=== PATIENT | male | born 1950 | race Caucasian/White ===

== ENCOUNTER 2018-01-21 14:38 | Inpatient (IN) | payer MEDICARE, BC ==
[2018-01-21] MEDS ORDERED: DIPH,PERTUS(ACELL)TETVAC-LF 0.5 ML VIAL IM ONE (15:20)
--- NOTE | 2018-01-21 15:44 | ED ---
General Adult HPI - General Stated complaint: Fall Time Seen by Provider: 01/21/18 15:08 Source: patient, EMS, RN notes reviewed, old records reviewed Mode of arrival: EMS Limitations: physical limitation - History of Present Illness Initial comments: 67-year-old male presenting status post fall. Patient states he fell down approximately 2 steps onto his knees. He was unable to ambulate after the fall. Patient was found by his son after approximately 2 hours according to EMS. He was covered in urine and feces. Patient does admit to drinking several beers. Denies any vomiting. Denies diarrhea. Denies any significant pain complaints. He is stating he is eager to be discharged at the time of initial evaluation. Patient does appear intoxicated on exam. His only pain complaint is his knees. Denies head injury. Denies LOC. Denies neck pain. Denies chest pain or shortness of breath. Denies abdominal pain. - Related Data Home Medications Medication Instructions Recorded Confirmed No Known Home Medications [No 01/21/18 01/21/18 Known Home Medications] Allergies Allergy/AdvReac Type Severity Reaction Status Date / Time No Known Allergies Allergy Verified 01/21/18 20:00 Review of Systems ROS Statement: Those systems with pertinent positive or pertinent negative responses have been documented in the HPI. ROS Other: All systems not noted in ROS Statement are negative. Past Medical History Additional Past Medical History / Comment(s): Diverticulitits, hx of CA Additional Past Surgical History / Comment(s): L. Arm amputation Smoking Status: Unknown if ever smoked Past Alcohol Use History: Daily Past Drug Use History: None Reported General Exam Limitations: physical limitation General appearance: alert, in no apparent distress, appears intoxicated Head exam: Present: atraumatic, normocephalic Eye exam: Present: normal appearance, PERRL, EOMI Neck exam: Present: normal inspection, tenderness. Absent: meningismus Respiratory exam: Present: normal lung sounds bilaterally. Absent: respiratory distress Cardiovascular Exam: Present: regular rate, normal rhythm GI/Abdominal exam: Present: soft. Absent: distended, tenderness Extremities exam: Present: other (Left arm amputation, bilateral knee abrasion and very stages of healing.) Neurological exam: Present: alert, oriented X3, CN II-XII intact. Absent: motor sensory deficit Skin exam: Present: warm, dry. Absent: cyanosis, diaphoretic Course Vital Signs 01/21/18 01/21/18 15:14 19:32 Temperature 99.1 F Pulse Rate 106 H 91 Respiratory 18 16 Rate Blood Pressure 167/96 151/88 O2 Sat by Pulse 95 96 Oximetry EKG Findings - EKG Comments: EKG Findings:: EKG, sinus tachycardia moderate voltage criteria for LVH T-wave inversion in V5 and V6 with mild ST segment depression. No ST segment elevation. Rate of 103, PA interval 140, QRS duration 108, QTC 474 Medical Decision Making - Medical Decision Making 67-year-old male presents with multiple falls. On initial evaluation, patient is covered in his own urine and feces. Chief complaint is only bilateral knee pain. X-rays are obtained, this is negative for fracture dislocation. Patient' s tetanus is updated. Chest x-ray negative for focal pneumonia. X-ray negative for Q bony abnormality. Patient is clinically intoxicated on initial evaluation of alcohol 179. White blood cell count normal, hemoglobin stable. Patient does appear somewhat dehydrated. He receives some IV hydration. I did have a long discussion with the patient's son, he is very concerned about the multiple falls and is concerned that his father is unable to take care of himself. Patient will be placed in observation for physical therapy to see regarding multiple falls and gait instability. CT was scale is ordered. Patient's son will attempt to arrange a place for his father to go in the next 24 hours. Patient also benefit from social work consult. - Lab Data Result diagrams: 01/21/18 15:46 01/21/18 15:46 Lab Results 01/21/18 01/21/18 01/21/18 Range/Units 15:46 15:46 15:46 WBC 5.5 (3.8-10.6) k/uL RBC 5.27 (4.30-5.90) m/uL Hgb 16.3 (13.0-17.5) gm/dL Hct 47.8 (39.0-53.0) % MCV 90.8 (80.0-100.0) fL MCH 30.9 (25.0-35.0) pg MCHC 34.1 (31.0-37.0) g/dL RDW 13.6 (11.5-15.5) % Plt Count 59 L (150-450) k/uL Neutrophils % 75 % Lymphocytes % 14 % Monocytes % 7 % Eosinophils % 2 % Basophils % 1 % Neutrophils # 4.1 (1.3-7.7) k/uL Lymphocytes # 0.8 L (1.0-4.8) k/uL Monocytes # 0.4 (0-1.0) k/uL Eosinophils # 0.1 (0-0.7) k/uL Basophils # 0.0 (0-0.2) k/uL PT 10.7 (9.0-12.0) sec INR 1.1 (<1.2) APTT 20.9 L (22.0-30.0) sec Sodium 138 (137-145) mmol/L Potassium 3.9 (3.5-5.1) mmol/L Chloride 102 (98-107) mmol/L Carbon Dioxide 19 L (22-30) mmol/L Anion Gap 17 mmol/L BUN 16 (9-20) mg/dL Creatinine 0.71 (0.66-1.25) mg/dL Est GFR (CKD-EPI)AfAm >90 (>60 ml/min/1.73 sqM) Est GFR (CKD-EPI)NonAf >90 (>60 ml/min/1.73 sqM) Glucose 85 (74-99) mg/dL Calcium 8.5 (8.4-10.2) mg/dL Total Bilirubin 1.0 (0.2-1.3) mg/dL AST 40 (17-59) U/L ALT 51 (21-72) U/L Alkaline Phosphatase 51 (38-126) U/L Troponin I (0.000-0.034) ng/mL Total Protein 6.7 (6.3-8.2) g/dL Albumin 4.2 (3.5-5.0) g/dL Urine Color Urine Appearance (Clear) Urine pH (5.0-8.0) Ur Specific [place] (1.001-1.035) Urine Protein (Negative) Urine Glucose (UA) (Negative) Urine Ketones (Negative) Urine Blood (Negative) Urine Nitrite (Negative) Urine Bilirubin (Negative) Urine Urobilinogen (<2.0) mg/dL Ur Leukocyte Esterase (Negative) Serum Alcohol 179 mg/dL 01/21/18 01/21/18 Range/Units 15:46 16:36 WBC (3.8-10.6) k/uL RBC (4.30-5.90) m/uL Hgb (13.0-17.5) gm/dL Hct (39.0-53.0) % MCV (80.0-100.0) fL MCH (25.0-35.0) pg MCHC (31.0-37.0) g/dL RDW (11.5-15.5) % Plt Count (150-450) k/uL Neutrophils % % Lymphocytes % % Monocytes % % Eosinophils % % Basophils % % Neutrophils # (1.3-7.7) k/uL Lymphocytes # (1.0-4.8) k/uL Monocytes # (0-1.0) k/uL Eosinophils # (0-0.7) k/uL Basophils # (0-0.2) k/uL PT (9.0-12.0) sec INR (<1.2) APTT (22.0-30.0) sec Sodium (137-145) mmol/L Potassium (3.5-5.1) mmol/L Chloride (98-107) mmol/L Carbon Dioxide (22-30) mmol/L Anion Gap mmol/L BUN (9-20) mg/dL Creatinine (0.66-1.25) mg/dL Est GFR (CKD-EPI)AfAm (>60 ml/min/1.73 sqM) Est GFR (CKD-EPI)NonAf (>60 ml/min/1.73 sqM) Glucose (74-99) mg/dL Calcium (8.4-10.2) mg/dL Total Bilirubin (0.2-1.3) mg/dL AST (17-59) U/L ALT (21-72) U/L Alkaline Phosphatase (38-126) U/L Troponin I 0.020 (0.000-0.034) ng/mL Total Protein (6.3-8.2) g/dL Albumin (3.5-5.0) g/dL Urine Color Colorless Urine Appearance Clear (Clear) Urine pH 5.0 (5.0-8.0) Ur Specific [place] 1.002 (1.001-1.035) Urine Protein Negative (Negative) Urine Glucose (UA) Negative (Negative) Urine Ketones Negative (Negative) Urine Blood Negative (Negative) Urine Nitrite Negative (Negative) Urine Bilirubin Negative (Negative) Urine Urobilinogen <2.0 (<2.0) mg/dL Ur Leukocyte Esterase Negative (Negative) Serum Alcohol mg/dL Disposition Clinical Impression: Fall, Multiple falls, Alcohol abuse Disposition: ADMITTED IP TO THIS HOSP Condition: Stable Is patient prescribed a controlled substance at d/c from ED?: No Referrals: None,Stated [Primary Care Provider] - 1-2 days Time of Disposition: 20:02 Decision to Admit Reason: Admit from EC Decision Date: 01/21/18 Decision Time: 20:02
[2018-01-21 16:00] LABS: Basophils % (A) 1 %; Eosinophils # (A) 0.1 k/uL (0-0.7); Eosinophils % (A) 2 %; HCT 47.8 % (39.0-53.0); HGB 16.3 gm/dL (13.0-17.5); Lymphocytes # (A) 0.8 k/uL (1.0-4.8); Lymphocytes % (A) 14 %; MCH 30.9 pg (25.0-35.0); MCHC 34.1 g/dL (31.0-37.0); MCV 90.8 fL (80.0-100.0); Mean Platelet Volume 10.6; Monocytes # (A) 0.4 k/uL (0-1.0); Monocytes % (A) 7 %; Neutrophils # (A) 4.1 k/uL (1.3-7.7); Neutrophils % (A) 75 %; RBC 5.27 m/uL (4.30-5.90); RDW 13.6 % (11.5-15.5); WBC 5.5 k/uL (3.8-10.6)
[2018-01-21 16:09] LABS: ALT 51 U/L (21-72); AST 40 U/L (17-59); Albumin 4.2 g/dL (3.5-5.0); Alkaline Phosphatase 51 U/L (38-126); Anion Gap 17 mmol/L; Blood Urea Nitrogen 16 mg/dL (9-20); Calcium 8.5 mg/dL (8.4-10.2); Carbon Dioxide 19 mmol/L (22-30); Chloride 102 mmol/L (98-107); Glucose 85 mg/dL (74-99); Potassium 3.9 mmol/L (3.5-5.1); Sodium 138 mmol/L (137-145); Total Protein 6.7 g/dL (6.3-8.2)
[2018-01-21 16:15] LABS: Platelet Count 59 k/uL (150-450)
[2018-01-21 16:16] LABS: Alcohol 179 mg/dL; INR 1.1 (<1.2); Partial Thromboplastin Time 20.9 sec (22.0-30.0); Prothrombin Time 10.7 sec (9.0-12.0)
[2018-01-21] MEDS ORDERED: SODIUM CHLORIDE 0.9% 500 ML IV ONE (16:24)
[2018-01-21 16:40] LABS: Appearance,Urine Clear (Clear); Bilirubin,Urine Negative (Negative); Blood,Urine Negative (Negative); Color,Urine Colorless; Glucose,Urine (UA) Negative (Negative); Ketones,Urine Negative (Negative); Leukocyte Esterase,Urine Negative (Negative); Nitrite,Urine Negative (Negative); Protein,Urine Negative (Negative); Specific Gravity,Urine 1.002 (1.001-1.035); Urobilinogen,Urine <2.0 mg/dL (<2.0)
--- NOTE | 2018-01-21 18:16 | XR ---
PROCEDURE: XR knee complete bilateral, total 6 views DATE AND TIME: 01/21/2018 5:41 PM REFERRING PHYSICIAN: Davian Chicas CLINICAL INDICATION: PHH, Pain TECHNIQUE: Department protocol. COMPARISON: None FINDINGS: RIGHT KNEE: There is no fracture or malalignment. The soft tissues are unremarkable. Mild medial comp artment joint space narrowing noted. No other degenerative joint changes. LEFT KNEE: There is no fracture or malalignment. The soft tissues are unremarkable. Mild medial marko rtment joint space narrowing noted. No other degenerative joint changes. IMPRESSION: Only minimal degenerative joint changes bilaterally.
--- NOTE | 2018-01-21 19:16 | XR ---
PROCEDURE: XR pelvis - 2 AP views DATE AND TIME: 01/21/2018 5:41 PM REFERRING PHYSICIAN: Davian Chicas CLINICAL INDICATION: PHH, Trauma TECHNIQUE: 2 AP views. COMPARISON: None FINDINGS: There is no fracture or malalignment. The soft tissues are unremarkable. IMPRESSION: NO ACUTE PROCESS.
--- NOTE | 2018-01-21 19:21 | XR ---
EXAMINATION: XR chest 2V portable DATE AND TIME: 01/21/2018 5:41 PM ORDERING PROVIDER: Davian Chicas MD CLINICAL INDICATION: Pain following trauma TECHNIQUE: 2 AP views make up the examination COMPARISON: None. DESCRIPTION: The film is quite rotated. However, the lungs appear to be predominantly clear with the exception of retrocardiac lung opacifica tion with silhouetting of the left hemidiaphragm consistent with partial left lower lobe airlessness. This can correlate with a clinical diagnosis of left lower lobe atelectasis. As stated, the lungs ar e otherwise clear and well-expanded bilaterally. The pleural spaces appear to be negative. No evidence of pneumothorax. The cardiac silhouette is not enlarged. The skeletal structures are intact without focal findings. The soft tissues are unremarkable. IMPRESSION: Suspect left lower lobe atelectasis.
[2018-01-21] MEDS ORDERED: LORazepam 2 MG/ML INJ IV PRN ×2 (19:33)
[2018-01-21] MEDS ORDERED: THIAMINE 100 MG/ML 2 ML VIAL IM STA (19:33)
[2018-01-21] MEDS ORDERED: NALOXONE 0.4 MG/ML 1 ML VIAL IV PRN (19:58)
[2018-01-21] MEDS ORDERED: ACETAMINOPHEN TAB 325 MG TAB PO PRN (19:58)
[2018-01-22 00:28] VITALS: BMI 29.7
[2018-01-22] MEDS: LORazepam 2 MG/ML INJ IV PRN ×3 (07:55→22:36)
--- NOTE | 2018-01-22 11:16 | P.HPIM ---
History of Present Illness H&P Date: 01/22/18 Chief Complaint: Post fall Patient is a 67-year-old male with a known history of of diverticulitis. Status post explore laparotomy and postoperative wound infection status post skin flap several years ago, alcohol abuse on daily basis and history of left arm amputation and 70s due to answers status post chemoradiation infection came to ER with complaints of falls. A patient fell down approximately 2 steps in onto his knees.He was unable to ambulate after the fall. Patient was found by his son after approximately 2 hours according to EMS. He was covered in urine and feces. Patient does admit to drinking several beers. Denies any vomiting. Denies diarrhea. Denies any significant pain complaints. He is stating he is eager to be discharged at the time of initial evaluation. Patient does appear intoxicated on exam. His only pain complaint is his knees. Denies head injury. Denies LOC. Denies neck pain. Denies chest pain or shortness of breath. Denies abdominal pain. Any recent illnesses or sick contacts. His alcohol level was 179 on admission. Living insulin within normal limits. Review of Systems Constitutional: Patient denies any fever or chills . No generalized weakness or weight loss. Abdomen: Patient denied nausea vomiting and diarrhea and abdominal pain. Cardiovascular: Patient denies any chest pain or short of breath no palpitations. Respiratory: patient denied any cough is from production. No shortness of breath Neurologic: Patient denied any numbness or tingling headache. Musculoskeletal: Patient denies any complaints of joint swelling or deformity. Skin: Negative Psychiatric: Negative Endocrine: No heat or cold intolerance. No recent weight gain. Genitourinary: No dysuria or hematuria. All other 14 point ROS negative except the above Past Medical History Additional Past Medical History / Comment(s): Diverticulitits, hx of CA, falls, ETOH History of Any Multi-Drug Resistant Organisms: None Reported Additional Past Surgical History / Comment(s): L. Arm amputation (70's) Past Anesthesia/Blood Transfusion Reactions: No Reported Reaction Past Psychological History: No Psychological Hx Reported Smoking Status: Unknown if ever smoked Past Alcohol Use History: Daily Additional Past Alcohol Use History / Comment(s): has been a drinker since he was 14 years old and it has progressively gotten worse Past Drug Use History: None Reported Medications and Allergies Home Medications Medication Instructions Recorded Confirmed Type No Known Home Medications [No 01/21/18 01/21/18 History Known Home Medications] Allergies Allergy/AdvReac Type Severity Reaction Status Date / Time No Known Allergies Allergy Verified 01/21/18 20:00 Physical Exam Vitals: Vital Signs Temp Pulse Pulse Resp BP BP Pulse Ox 01/22/18 08:00 101 H 01/22/18 07:45 99.9 F H 101 H 20 161/91 95 01/22/18 00:00 92 18 01/21/18 22:34 98.4 F 92 18 162/91 92 L 01/21/18 21:59 98.4 F 18 162/91 01/21/18 21:18 97.6 F 01/21/18 19:32 91 16 151/88 96 01/21/18 15:14 99.1 F 106 H 18 167/96 95 Intake and Output 01/21/18 01/22/18 01/22/18 22:59 06:59 14:59 Other: Voiding Method Toilet Toilet Urinal Urinal # Voids 1 1 Weight 105.233 kg PHYSICAL EXAMINATION: Patient is lying in the bed comfortably, no acute distress, awake alert and oriented.. HEENT: Normocephalic. Neck is supple. Pupils reactive. Nostrils clear. Oral cavity is moist. Ears reveal no drainage. Neck reveals no JVD, carotid bruits, or thyromegaly. CHEST EXAMINATION: Trachea is central. Symmetrical expansion. Diminished bibasilar air entry Lung hou clear to auscultation and percussion. CARDIAC: Normal S1, S2 with no gallops. No murmurs ABDOMEN: Soft. Bowel sounds normal. No organomegaly. No abdominal bruits. Extremities: reveal no edema. Does have lacerations from fall on bilateral knees and legs. No clubbing or cyanosis Neurologically awake, alert, oriented x3 with well-coordinated movements. No focal deficits noted Skin: No rash or skin lesions except as aboveabove.. Psychiatric: Cooperative. Nonsuicidal Musculoskeletal: Patient does have left upper extremity amputation up to shoulder No joint swelling or deformity. Normal range of motion. Results CBC & Chem 7: 01/21/18 15:46 01/21/18 15:46 Labs: Abnormal Lab Results - Last 24 Hours (Table) 01/21/18 01/21/18 01/21/18 Range/Units 15:46 15:46 15:46 Plt Count 59 L (150-450) k/uL Lymphocytes # 0.8 L (1.0-4.8) k/uL APTT 20.9 L (22.0-30.0) sec Carbon Dioxide 19 L (22-30) mmol/L Thrombosis Risk Factor Assmnt - DVT/VTE Prophylaxis DVT/VTE Prophylaxis: Pharmacologic Prophylaxis ordered - Choose All That Apply Each Factor Represents 1 point: Obesity (BMI >25), Swollen legs (current) Each Risk Factor Represents 2 Points: Age 61-74 years Thrombosis Risk Factor Assessment Total Risk Factor Score: 4 Thrombosis Risk Factor Assessment Level: Moderate Risk Assessment and Plan Assessment: Status post mechanical fall and lacerated wounds on bilateral knees and legs Acute alcohol intoxication Alcohol abuse on daily basis Previous history of diverticular rupture and colectomy with abdominal wound issues and skin flap several years ago 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 Currently not on any medications at home DVT prophylaxis Plan: Patient will be continued on gentle hydration. Patient will be started on Norvasc 5 mg daily. Continue to monitor for alcohol withdrawal symptoms. Thiamine and multivitamins and recommended to follow up as an outpatient. PTOT consult and wound care. Home situation evaluation and further recommendations based on the clinical course. Discussed with the family in detail at bedside and all questions were answered. Time with Patient: Greater than 30
[2018-01-22] MEDS: THIAMINE 100 MG TAB PO SCH ×2 (11:48→16:45)
[2018-01-22] MEDS: amLODIPine 5 MG TAB PO SCH (11:48)
--- NOTE | 2018-01-22 12:42 | CT ---
EXAMINATION TYPE: CT abdomen pelvis wo con DATE OF EXAM: 01/22/2018 COMPARISON: NONE HISTORY: Abnormal gait, frequent falls, alcoholism CT DLP: 1139 mGycm Automated exposure control for dose reduction was used. TECHNIQUE: Helical acquisition of images was performed from the lung bases through the pelvis. FINDINGS: LUNG BASES: Heart is markedly enlarged there subsegmental changes at both lung bases. LIVER/GB: Liver is low in attenuation correlate for hepatic steatosis. Previous gallbladder surgery n oted. PANCREAS: No significant abnormality is seen. SPLEEN: No significant abnormality is seen. ADRENALS: No significant abnormality is seen. KIDNEYS: No significant abnormality is seen. FREE AIR: No free air is visualized URINARY BLADDER: No significant abnormality is seen. ADENOPATHY: None visualized. OSSEOUS STRUCTURES: Hypertrophic and degenerative change of the spine noted. There are a few scatter ed sclerotic lesions measure less than a centimeter involving which are too small to characterize. No compression deformities. BOWEL: Bowel gas pattern is nonspecific. A few prominent air-filled loops are seen along the anterio r abdominal wall which appeared to be slightly distended. Atrophic change of the musculature is noted . Small anterior abdominal wall hernia not excluded. Fat attenuation within the third portion of the duodenum can be associated with a small bowel lipoma measuring 7 mm. OTHER: Aorta of normal caliber. IMPRESSION: 1. HEPATIC STEATOSIS. CORRELATE FOR HEPATOCELLULAR DISEASE. 2. CARDIOMEGALY 3. NONSPECIFIC GAS PATTERN WITH A FEW PROMINENT SMALL BOWEL LOOPS COULD BEEN THE BASIS OF A LOCALIZED ILEUS. THERE IS SOME ABDOMINAL DISTENTION ANTERIORLY IS FAVORED OVER SMALL ANTERIOR ABDOMINAL WALL H ERNIA. CORRELATE CLINICALLY. 4. SOFT TISSUE DENSITY SEEN ADJACENT TO THE RIGHT MARGIN OF A THORACIC VERTEBRAL SEGMENT MEASURING AP PROXIMATELY 2.3 CM. THIS IS SEEN ON IMAGE 1 INCOMPLETELY IMAGED. SHORT-TERM FOLLOW-UP CT CHEST TO BE OBTAINED. 5. SUSPECT A SMALL BOWEL LIPOMA WITHIN THE DUODENUM MEASURING 7 MM.
[2018-01-22] MEDS: HEPARIN SODIUM,PORCINE 5,000 UNIT/ML 1 ML VIAL SQ SCH ×2 (16:45→23:08)
[2018-01-22 23:13] VITALS: RESP 16
[2018-01-23] MEDS: amLODIPine 5 MG TAB PO SCH (08:16)
[2018-01-23] MEDS: HEPARIN SODIUM,PORCINE 5,000 UNIT/ML 1 ML VIAL SQ SCH (08:16)
[2018-01-23 08:34] VITALS: BP 170/103; PULSE 90; TEMP 97.4
--- NOTE | 2018-01-23 10:34 | P.CON ---
Consult Note - . Consult date: 01/23/18 Assessment/Plan:: This consultation was performed per the request of regarding elongated neglected thick deformed nails of both feet. Line This patient is a 67-year-old male with a known history of diverticulitis, status post exploratory laparotomy and postoperative wound infection status post skin flap several years ago. He states that he uses alcohol on a daily basis he has a history of a left arm amputation. The patient came to the ER with a complaint of a fall he apparently fell down 2 steps onto his knees he was unable to ambulate after the fall. The patient was found by his son after approximately 2 hours she does admitting to drinking several beers prior to the fall. Denies vomiting or diarrhea denies any significant pain complaints. He complaint were his knees. He denied head injury consciousness neck pain pain shortness of breath and abdominal pain or graft asked medical history nephric in for diverticulitis history of cancer falls [place] use Past medical history: Significant for diverticulitis history of cancer, falls, alcohol use left arm has been amputated Podiatric physical examination revealed very neglected elongated thick deformed dystrophic mycotic Jian involved nails involving the digits one through 5 bilaterally it appears as if the patient's not trimmed his nails in 2 years or so. The patient's skin with regard to color moisture temperature and texture was essentially within normal limits. Patient had palpable pedal pulses rated at +2 over 4 with regard to the dorsalis pedis and the posterior tibial arteries. Capillary refill is less than 3 seconds to all digits. Babinski and clonus signs were negative Range of motion ankle subtalar midtarsal metatarsal phalangeal joints are free and unrestricted Assessment and plan: 1. Status post mechanical fall and lacerated wounds on bilateral knees and legs 2. Acute alcohol intoxication 3. Alcohol abuse on a daily basis 4. Previous history of diverticular rupture and colectomy, wound issues and skin flap several years ago 5. Left upper extremity amputation/at the shoulder level . Thrombocytopenia secondary to alcohol abuse 7. Mild metastatic acidosis ion gap 8. Hypertension 9. DVT prophylaxis 10. Onychomycosis involving the digits one through 5 of both feet This data reduce patient's nails 1 through 5 bilaterally burring was performed and a septic was applied Thank you for considering me in the care your patients [place] DPM
[2018-01-23] MEDS ORDERED: LISINOPRIL 10 MG TAB PO SCH (11:15)
[2018-01-23] MEDS: THIAMINE 100 MG TAB PO SCH (11:39)
[2018-01-24] MEDS ORDERED: amLODIPine 10 MG TAB PO SCH (09:00)
== END 2018-01-23 16:10 | disposition home or self-care (01) | DRG 897 ==
LOC: EC 14:38 → 5MS5E 19:58 → OBSVTOIN 01-22 15:41 → 5MS5E 01-22 15:41
PROVIDERS: ADMIT Internal Medicine; ATTEND Internal Medicine
DX: F10.129 Alcohol abuse with intoxication, unspecified (principal); E87.2 Acidosis; B35.1 Tinea unguium; D69.59 Other secondary thrombocytopenia; E86.0 Dehydration; I10 Essential (primary) hypertension; R29.6 Repeated falls; K57.90 Diverticulosis of intestine, part unspecified, without perforation or abscess without bleeding; S81.012A Laceration without foreign body, left knee, initial encounter; S81.011A Laceration without foreign body, right knee, initial encounter; S81.812A Laceration without foreign body, left lower leg, initial encounter; S81.811A Laceration without foreign body, right lower leg, initial encounter; Z90.49 Acquired absence of other specified parts of digestive tract; Z89.232 Acquired absence of left shoulder; Z85.9 Personal history of malignant neoplasm, unspecified; W10.9XXA Fall (on) (from) unspecified stairs and steps, initial encounter; Y92.9 Unspecified place or not applicable; Y90.6 Blood alcohol level of 120-199 mg/100 ml
CPT/HCPCS: 36415; 71045; 72170; 74176; 80053; 80320; 81003; 84443; 84484; 85025; 85610; 85730; 90471; 90715; 93005; 96360; 96361; 96372; 99285

== ENCOUNTER 2019-07-13 09:28 | Inpatient (IN) | payer MEDICARE, BC ==
--- NOTE | 2019-07-13 10:44 | ED ---
General Adult HPI - General Chief complaint: Recheck/Abnormal Lab/Rx Stated complaint: LOW HEMOGLOBIN Time Seen by Provider: 07/13/19 10:28 Source: patient Mode of arrival: wheelchair Limitations: physical limitation - History of Present Illness Initial comments: Patient is a 69-year-old male with history of diverticulitis is presenting to emergency Department with a chief complaint of low hemoglobin. Patient reports the primary care obtained a blood sample yesterday and he was informed today that he has a hemoglobin of around 4. Patient reports that he has been feeling fatigue over the last few days. Patient also reports rectal bleeding and thinks he has hemorrhoids. Patient reports bleeding with bowel movements and notices red stains on the toilet paper when he was. He reports a past surgical history of a colectomy secondary to diverticulitis. Patient denies any abdominal pain, nausea or vomiting or diarrhea. Patient denies any fevers ice was or chills. Patient has any chest pain, shortness of breath. - Related Data Home Medications Medication Instructions Recorded Confirmed Aspirin EC [Ecotrin Low Dose] 81 mg PO DAILY 07/13/19 07/13/19 Allergies Allergy/AdvReac Type Severity Reaction Status Date / Time No Known Allergies Allergy Verified 07/13/19 11:23 Review of Systems ROS Statement: Those systems with pertinent positive or pertinent negative responses have been documented in the HPI. ROS Other: All systems not noted in ROS Statement are negative. 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 [place] Past Anesthesia/Blood Transfusion Reactions: No Reported Reaction Past Psychological History: No Psychological Hx Reported Smoking Status: Former smoker Past Alcohol Use History: None Reported General Exam Limitations: physical limitation General appearance: alert, in no apparent distress, obese Head exam: Present: atraumatic, normocephalic, normal inspection Eye exam: Present: normal appearance, PERRL, EOMI, scleral icterus Pupils: Present: normal accommodation ENT exam: Present: normal exam, normal oropharynx (Pale Mucous membranes), mucous membranes moist, TM's normal bilaterally, normal external ear exam Neck exam: Present: normal inspection, full ROM Respiratory exam: Present: normal lung sounds bilaterally Cardiovascular Exam: Present: regular rate, normal rhythm, normal heart sounds GI/Abdominal exam: Present: soft, other (Umbilical scar from previous surgery). Absent: tenderness Extremities exam: Present: normal inspection, full ROM Back exam: Present: normal inspection. Absent: tenderness, CVA tenderness (R), CVA tenderness (L) Neurological exam: Present: alert, oriented X3 Psychiatric exam: Present: normal affect, normal mood Skin exam: Present: warm, dry, intact, normal color. Absent: rash Course Vital Signs 07/13/19 09:34 Temperature 99.0 F Pulse Rate 100 Respiratory 19 Rate Blood Pressure 110/57 O2 Sat by Pulse 99 Oximetry Medical Decision Making - Medical Decision Making Patient is a 69-year-old male presenting to the emergency department with a chief complaint of low hemoglobin. Hemoglobin was drawn yesterday up primary care and patient was contacted today for the results and advised to go to the ED. Initial labs indicate a hemoglobin of 4.6 and 17.8 hematocrit. Coags pending. Occult blood negative. I suspect the rectal bleeding the patient was experiencing is secondary to an external hemorrhoid. 2 units of blood given. Patient will be admitted for further medical management. Case discussed with Dr. Hernandez. Admitting physician is Dr. Mcfarland. - Lab Data Result diagrams: 07/13/19 11:35 07/13/19 11:35 Lab Results 07/13/19 07/13/19 07/13/19 Range/Units 11:25 11:35 11:35 WBC 5.3 (3.8-10.6) k/uL RBC 3.12 L (4.30-5.90) m/uL Hgb 4.6 L* (13.0-17.5) gm/dL Hct 17.8 L* (39.0-53.0) % MCV 57.0 L (80.0-100.0) fL MCH 14.7 L (25.0-35.0) pg MCHC 25.7 L (31.0-37.0) g/dL RDW 17.4 H (11.5-15.5) % Plt Count 245 (150-450) k/uL Neutrophils % (Manual) 86 % Lymphocytes % (Manual) 9 % Monocytes % (Manual) 3 % Eosinophils % (Manual) 2 % Basophils % (Manual) 1 % Neutrophils # (Manual) 4.56 (1.3-7.7) k/uL Lymphocytes # (Manual) 0.48 L (1.0-4.8) k/uL Monocytes # (Manual) 0.16 (0-1.0) k/uL Eosinophils # (Manual) 0.11 (0-0.7) k/uL Basophils # (Manual) 0.05 (0-0.2) k/uL Nucleated RBCs 4 H (0-0) /100 WBC Manual Slide Review Performed Polychromasia Present Hypochromasia Marked Poikilocytosis Slight Anisocytosis Slight Microcytosis Marked Sodium 137 (137-145) mmol/L Potassium 4.0 (3.5-5.1) mmol/L Chloride 106 (98-107) mmol/L Carbon Dioxide 24 (22-30) mmol/L Anion Gap 7 mmol/L BUN 25 H (9-20) mg/dL Creatinine 0.79 (0.66-1.25) mg/dL Est GFR (CKD-EPI)AfAm >90 (>60 ml/min/1.73 sqM) Est GFR (CKD-EPI)NonAf >90 (>60 ml/min/1.73 sqM) Glucose 99 (74-99) mg/dL Calcium 8.5 (8.4-10.2) mg/dL Total Bilirubin 1.0 (0.2-1.3) mg/dL AST 33 (17-59) U/L ALT 20 L (21-72) U/L Alkaline Phosphatase 38 (38-126) U/L Total Protein 5.8 L (6.3-8.2) g/dL Albumin 3.4 L (3.5-5.0) g/dL Stool Occult Blood (Negative) Blood Type O Negative Blood Type Confirm Blood Type Recheck No Previous Record Bld Type Recheck Status CABO Indicated Antibody Screen NEGATIVE Crossmatch See Detail Spec Expiration Date 07/16/2019 - 232407/13/19 07/13/19 Range/Units 11:35 11:35 WBC (3.8-10.6) k/uL RBC (4.30-5.90) m/uL Hgb (13.0-17.5) gm/dL Hct (39.0-53.0) % MCV (80.0-100.0) fL MCH (25.0-35.0) pg MCHC (31.0-37.0) g/dL RDW (11.5-15.5) % Plt Count (150-450) k/uL Neutrophils % (Manual) % Lymphocytes % (Manual) % Monocytes % (Manual) % Eosinophils % (Manual) % Basophils % (Manual) % Neutrophils # (Manual) (1.3-7.7) k/uL Lymphocytes # (Manual) (1.0-4.8) k/uL Monocytes # (Manual) (0-1.0) k/uL Eosinophils # (Manual) (0-0.7) k/uL Basophils # (Manual) (0-0.2) k/uL Nucleated RBCs (0-0) /100 WBC Manual Slide Review Polychromasia Hypochromasia Poikilocytosis Anisocytosis Microcytosis Sodium (137-145) mmol/L Potassium (3.5-5.1) mmol/L Chloride (98-107) mmol/L Carbon Dioxide (22-30) mmol/L Anion Gap mmol/L BUN (9-20) mg/dL Creatinine (0.66-1.25) mg/dL Est GFR (CKD-EPI)AfAm (>60 ml/min/1.73 sqM) Est GFR (CKD-EPI)NonAf (>60 ml/min/1.73 sqM) Glucose (74-99) mg/dL Calcium (8.4-10.2) mg/dL Total Bilirubin (0.2-1.3) mg/dL AST (17-59) U/L ALT (21-72) U/L Alkaline Phosphatase (38-126) U/L Total Protein (6.3-8.2) g/dL Albumin (3.5-5.0) g/dL Stool Occult Blood Negative (Negative) Blood Type Blood Type Confirm O Negative Blood Type Recheck Bld Type Recheck Status Antibody Screen Crossmatch Spec Expiration Date Disposition Clinical Impression: Anemia, Hemoglobin low Disposition: ADMITTED IP TO THIS [facility] Condition: Good Instructions (If sedation given, give patient instructions): Iron Deficiency Anemia (ED) Additional Instructions: Patient will be admitted. Is patient prescribed a controlled substance at d/c from ED?: No Referrals: Marshall,Keyon, DO [Primary Care Provider] - 1-2 days Time of Disposition: 13:29
[2019-07-13 12:34] LABS: Anisocytosis Slight; Hypochromasia Marked; MCH 14.7 pg (25.0-35.0); MCHC 25.7 g/dL (31.0-37.0); Mean Platelet Volume 8.9; Microcytosis Marked; Platelet Count 245 k/uL (150-450); Poikilocytosis Slight; RBC 3.12 m/uL (4.30-5.90); RDW 17.4 % (11.5-15.5)
[2019-07-13 12:36] LABS: HCT 17.8 % (39.0-53.0)
[2019-07-13 12:38] LABS: ALT 20 U/L (21-72); AST 33 U/L (17-59); African American GFR (CKD) >90 (>60 ml/min/1.73 sqM); Albumin 3.4 g/dL (3.5-5.0); Alkaline Phosphatase 38 U/L (38-126); Anion Gap 7 mmol/L; Blood Urea Nitrogen 25 mg/dL (9-20); Calcium 8.5 mg/dL (8.4-10.2); Carbon Dioxide 24 mmol/L (22-30); Chloride 106 mmol/L (98-107); Glucose 99 mg/dL (74-99); HGB 4.6 gm/dL (13.0-17.5); Sodium 137 mmol/L (137-145); Total Protein 5.8 g/dL (6.3-8.2)
[2019-07-13 13:11] LABS: Basophils # (M) 0.05 k/uL (0-0.2); Eosinophils # (M) 0.11 k/uL (0-0.7); Lymphocytes # (M) 0.48 k/uL (1.0-4.8); Monocytes # (M) 0.16 k/uL (0-1.0); Neutrophils % (M) 86 %; Nucleated Red Blood Cells 4 /100 WBC (0-0); Total Cells Counted 200; WBC 5.3 k/uL (3.8-10.6)
[2019-07-13 13:12] LABS: Polychromasia Present
[2019-07-13 13:34] LABS: INR 1.1 (<1.2); Partial Thromboplastin Time 22.8 sec (22.0-30.0); Prothrombin Time 11.3 sec (9.0-12.0)
[2019-07-13] MEDS ORDERED: NALOXONE 0.4 MG/ML 1 ML VIAL IV PRN (14:12)
[2019-07-13] MEDS ORDERED: HYDROmorphone 0.5 MG/0.5 ML SYRINGE IVP PRN (14:12)
[2019-07-13] MEDS ORDERED: MORPHINE SULFATE 4 MG/ML SYRINGE IV PRN (14:12)
[2019-07-13] MEDS ORDERED: ACETAMINOPHEN TAB 325 MG TAB PO PRN (14:12)
[2019-07-13] MEDS ORDERED: HYDROmorphone 1 MG/ML 1 ML SYRINGE IVP PRN (14:12)
[2019-07-13] MEDS: SODIUM CHLORIDE 0.9% 1,000 ML IV SCH (17:06)
[2019-07-13 18:27] VITALS: BMI 37.0
[2019-07-13] MEDS ORDERED: PNEUMOCOCCAL VACC-PNEUMOVAX 23 25 MCG/0.5 ML VIAL IM ONE (19:12)
[2019-07-14 01:11] LABS: % Iron Saturation 1.75 (15.00-50.00)
[2019-07-14 01:17] LABS: Ferritin 1.7 ng/mL (22.0-322.0)
[2019-07-14 02:11] LABS: Anisocytosis Moderate; HCT 21.2 % (39.0-53.0); Hypochromasia Marked; MCH 14.6 pg (25.0-35.0); MCHC 24.3 g/dL (31.0-37.0); MCV 60.1 fL (80.0-100.0); Mean Platelet Volume 7.7; Microcytosis Marked; Platelet Count 226 k/uL (150-450); Poikilocytosis Marked; RBC 3.52 m/uL (4.30-5.90); RDW 23.3 % (11.5-15.5)
[2019-07-14 02:12] LABS: HGB 5.1 gm/dL (13.0-17.5)
[2019-07-14 03:41] LABS: Basophils # (M) 0.05 k/uL (0-0.2); Lymphocytes # (M) 0.95 k/uL (1.0-4.8); Monocytes # (M) 0.48 k/uL (0-1.0); Neutrophils % (M) 73 %; Nucleated Red Blood Cells 1 /100 WBC (0-0); Total Cells Counted 200; WBC 5.3 k/uL (3.8-10.6)
[2019-07-14 03:42] LABS: Polychromasia Present; Target Cells Present
[2019-07-14] MEDS: FAMOTIDINE 20 MG TAB PO SCH ×2 (08:43→20:03)
[2019-07-14] MEDS: SODIUM FERRIC GLUCONAT-SUCROSE 125 MG in SODIUM CHLORIDE 0.9% 100 ML IVPB SCH (11:50)
[2019-07-14 12:05] LABS: Anisocytosis Marked; HCT 29.6 % (39.0-53.0); HGB 8.2 gm/dL (13.0-17.5); Hypochromasia Marked; MCH 18.6 pg (25.0-35.0); MCHC 27.7 g/dL (31.0-37.0); Mean Platelet Volume 6.1; Microcytosis Marked; Platelet Count 210 k/uL (150-450); Poikilocytosis Marked
[2019-07-14 12:06] LABS: MCV 67.2 fL (80.0-100.0)
[2019-07-14 12:23] LABS: African American GFR (CKD) >90 (>60 ml/min/1.73 sqM); Anion Gap 12 mmol/L; Blood Urea Nitrogen 18 mg/dL (9-20); Calcium 8.8 mg/dL (8.4-10.2); Carbon Dioxide 21 mmol/L (22-30); Chloride 104 mmol/L (98-107); Glucose 99 mg/dL (74-99); Potassium 4.1 mmol/L (3.5-5.1); Sodium 137 mmol/L (137-145)
--- NOTE | 2019-07-14 12:31 | P.HPIM ---
History of Present Illness H&P Date: 07/13/19 Chief Complaint: Abnormal hemoglobin level Patient is 69-year-old male with a known history of hypertension, history of diverticulitis and previous history of tumor on left arm status post amputation was sent to Hospital by his primary care physician due to low hemoglobin level. Patient has been having swelling of his scrotum and went to see his primary care physician. Patient had lab workup done yesterday which showed low hemoglobin and was referred to the hospital. Hemoglobin was found to be 4.6 on admission. Patient has been having exertional short of breath, mild leg swelling and tightness and weakness recently. Patient also reports rectal bleeding and think s he has some hemorrhoids. Patient had some red stains on toilet When he uses bathroom. Patient does have a history of colectomy secondary to diverticulitis. Otherwise denied any abdominal pain. No nausea vomiting or diarrhea. No recent illnesses. No fever or chills. No chest pain. Patient is being transferred with 2 units of PRBC currently. Iron profile was ordered. FOBT negative. Review of Systems Constitutional: Patient denies any fever or chills . Generalized weakness and tiredness. Abdomen: Patient denied nausea vomiting and diarrhea and abdominal pain. Cardiovascular: Patient denies any chest pain or short of breath no palpitation s. Respiratory: patient denied any cough is from production. No shortness of breath Neurologic: Patient denied any numbness or tingling headache. Musculoskeletal: Patient denies any complaints of joint swelling or deformity. Skin: Negative Psychiatric: Negative Endocrine: No heat or cold intolerance. No recent weight gain. Genitourinary: No dysuria or hematuria. 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/t [place] Past Anesthesia/Blood Transfusion Reactions: No Reported Reaction Past Psychological History: No Psychological Hx Reported Smoking Status: Former smoker Past Alcohol Use History: None Reported Additional Past Alcohol Use History / Comment(s): smoked cigars years ago; has been a drinker since he was 14 years old and it has progressively gotten worse; just quit january 2018; now drinks non alcoholic beer Past Drug Use History: None Reported - Past Family History Father History Unknown: Yes Mother Family Medical History: Coronary Artery Disease (CAD) Medications and Allergies Home Medications Medication Instructions Recorded Confirmed Type Aspirin EC [Ecotrin Low Dose] 81 mg PO DAILY 07/13/19 07/13/19 History Allergies Allergy/AdvReac Type Severity Reaction Status Date / Time No Known Allergies Allergy Verified 07/13/19 11:23 Physical Exam Vitals: Vital Signs Temp Pulse Pulse Resp BP BP Pulse Ox 07/13/19 21:14 98.3 F 92 16 138/70 96 07/13/19 21:00 98.3 F 92 16 138/70 96 07/13/19 18:41 98.6 F 96 125/66 95 07/13/19 18:11 98.4 F 94 138/85 97 07/13/19 18:01 98.6 F 96 128/68 94 L 07/13/19 15:45 98.8 F 99 127/73 96 07/13/19 14:52 99.2 F 102 H 20 127/71 07/13/19 14:22 99.1 F 90 20 128/71 07/13/19 14:12 99.0 F 92 20 128/71 96 07/13/19 14:03 98.9 F 96 20 130/74 07/13/19 13:52 99.2 F 89 18 132/72 07/13/19 09:34 99.0 F 100 19 110/57 99 Intake and Output 07/13/19 07/13/19 07/14/19 14:59 22:59 06:59 Intake Total 0 410 Balance 0 410 Intake: Intake, IV Titration 100 Amount Sodium Chloride 0.9% 1, 100 000 ml @ 50 mls/hr IV . Q20H [facility] Rx#:[id number] Blood Product 0 310 Rc As-1 Unit 0 [id number] Rc Pheresis 2 As3 Unit 0 310 [id number] Other: Weight 130.952 kg PHYSICAL EXAMINATION: Patient is lying in the bed comfortably, no acute distress, awake alert and oriented.. HEENT: Normocephalic. Neck is supple. Pupils reactive. Nostrils clear. Oral cavity is moist. Ears reveal no drainage. Neck reveals no JVD, carotid bruits, or thyromegaly. CHEST EXAMINATION: Trachea is central. Symmetrical expansion. Bibasilar diminished air entry. Lung hou clear to auscultation and percussion. CARDIAC: Normal S1, S2 with no gallops. No murmurs ABDOMEN: Soft. Bowel sounds normal. No organomegaly. No abdominal bruits. Scrotal swelling and edema. Extremities: 1+ pedal no edema. No clubbing or cyanosis. Left upper extremity amputation. Neurologically awake, alert, oriented x3 with well-coordinated movements. No focal deficits noted Skin: No rash or skin lesions. Psychiatric: Coperative. Nonsuicidal Musculoskeletal: No joint swelling or deformity. Normal range of motion. Results CBC & Chem 7: 07/14/19 11:13 07/13/19 11:35 Labs: Abnormal Lab Results - Last 24 Hours (Table) 07/13/19 07/13/19 07/13/19 Range/Units 11:25 11:35 11:35 RBC 3.12 L (4.30-5.90) m/uL Hgb 4.6 L* (13.0-17.5) gm/dL Hct 17.8 L* (39.0-53.0) % MCV 57.0 L (80.0-100.0) fL MCH 14.7 L (25.0-35.0) pg MCHC 25.7 L (31.0-37.0) g/dL RDW 17.4 H (11.5-15.5) % Lymphocytes # (Manual) 0.48 L (1.0-4.8) k/uL Nucleated RBCs 4 H (0-0) /100 WBC BUN 25 H (9-20) mg/dL ALT 20 L (21-72) U/L Total Protein 5.8 L (6.3-8.2) g/dL Albumin 3.4 L (3.5-5.0) g/dL Crossmatch See Detail Thrombosis Risk Factor Assmnt - DVT/VTE Prophylaxis DVT/VTE Prophylaxis: Mechanical Prophylaxis ordered - Choose All That Apply Each Factor Represents 1 point: Obesity (BMI >25) Each Risk Factor Represents 2 Points: Age 61-74 years Thrombosis Risk Factor Assessment Total Risk Factor Score: 3 Thrombosis Risk Factor Assessment Level: Moderate Risk Assessment and Plan Assessment: Symptomatic anemia with hemoglobin level IV.6. Likelely due to chronic blood loss and iron deficiency. Chronic blood loss anemia likely rectal bleeding from hemorrhoids. 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 Monitor H&H. Patient will need GI workup and iron supplementation. Currently no active bleeding. FOBT negative. Continue to follow closely and further recommendations based on the clinical course. Discussed with his family at bedside in detail. Prognosis is guarded. Time with Patient: Greater than 30
[2019-07-14 13:07] LABS: Eosinophils # (M) 0.06 k/uL (0-0.7); Lymphocytes # (M) 0.51 k/uL (1.0-4.8); Monocytes # (M) 0.38 k/uL (0-1.0); Neutrophils % (M) 86 %; Nucleated Red Blood Cells 1 /100 WBC (0-0); Total Cells Counted 200; WBC 6.4 k/uL (3.8-10.6)
[2019-07-14 13:08] LABS: Mixed Population RBC Present; Polychromasia Present
[2019-07-14] MEDS: SODIUM CHLORIDE 0.9% 1,000 ML IV SCH (18:27)
--- NOTE | 2019-07-14 19:52 | P.GSCN ---
History of Present Illness Consult date: 07/14/19 Reason for Consult: Scrotal swelling History of present illness: The patient is a 69-year-old male who was directed to come to the emergency room for further evaluation due to severe anemia which was discovered by his primary care physician. In the emergency room he was noted to have a hemoglobin of 4.6. He had been noticing some fatigue and says that since he has received blood transfusions today the fatigue has improved. He says that he has had some bleeding from his hemorrhoids off and on but denied any prolonged bleeding. I was asked to see the patient due to scrotal swelling. The history is from a conversation with the patient and his son. The patient says that he first noted a painless swelling in the scrotum 3 or 4 months ago. He denied any injury at that time. He says that the swelling has increased gradually since then. He denies any pain but says that he sometimes is uncomfortable if his scrotum is trapped between his legs. He has no previous history of inguinal or scrotal surgery. 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/t chem o [place] Past Anesthesia/Blood Transfusion Reactions: No Reported Reaction Past Psychological History: No Psychological Hx Reported Smoking Status: Former smoker Past Alcohol Use History: None Reported Additional Past Alcohol Use History / Comment(s): smoked cigars years ago; has been a drinker since he was 14 years old and it has progressively gotten worse; just quit january 2018; now drinks non alcoholic beer Past Drug Use History: None Reported - Past Family History Father History Unknown: Yes Mother Family Medical History: Coronary Artery Disease (CAD) Medications and Allergies Home Medications Medication Instructions Recorded Confirmed Type Aspirin EC [Ecotrin Low Dose] 81 mg PO DAILY 07/13/19 07/13/19 History Allergies Allergy/AdvReac Type Severity Reaction Status Date / Time No Known Allergies Allergy Verified 07/13/19 11:23 Surgical - Exam Vital Signs Temp Pulse Resp BP Pulse Ox 99.0 F 100 19 110/57 99 07/13/19 09:34 07/13/19 09:34 07/13/19 09:34 07/13/19 09:34 07/13/19 09:34 - General well developed, well nourished, no distress, obese - Eyes pale - ENT no hearing loss - Neck no masses, no lymphadectomy - Respiratory normal respiratory effort - Abdomen Abdomen: soft, non tender Hernia: none - Genitourinary normal penis with no external lesions, testicles non-tender, other (Soft mass in the left scrotum consistent with hydrocele measuring 6-7 cm in greatest diameter) Results - Labs 07/14/19 11:13 07/14/19 11:13 Abnormal Lab Results - Last 24 Hours (Table) 07/13/19 07/13/19 07/14/19 Range/Units 11:25 17:45 01:39 RBC 3.52 L (4.30-5.90) m/uL Hgb 5.1 L* (13.0-17.5) gm/dL Hct 21.2 L (39.0-53.0) % MCV 60.1 L (80.0-100.0) fL MCH 14.6 L (25.0-35.0) pg MCHC 24.3 L (31.0-37.0) g/dL RDW 23.3 H (11.5-15.5) % Lymphocytes # (Manual) 0.95 L (1.0-4.8) k/uL Nucleated RBCs 1 H (0-0) /100 WBC Carbon Dioxide (22-30) mmol/L % Saturation 1.75 L (15.00-50.00) Ferritin 1.7 L (22.0-322.0) ng/mL Crossmatch See Detail 07/14/19 07/14/19 Range/Units 11:13 11:13 RBC (4.30-5.90) m/uL Hgb 8.2 L D (13.0-17.5) gm/dL Hct 29.6 L (39.0-53.0) % MCV 67.2 L D (80.0-100.0) fL MCH 18.6 L (25.0-35.0) pg MCHC 27.7 L (31.0-37.0) g/dL RDW 25.0 H (11.5-15.5) % Lymphocytes # (Manual) 0.51 L (1.0-4.8) k/uL Nucleated RBCs 1 H (0-0) /100 WBC Carbon Dioxide 21 L (22-30) mmol/L % Saturation (15.00-50.00) Ferritin (22.0-322.0) ng/mL Crossmatch Diabetes panel 07/14/19 Range/Units 11:13 Sodium 137 (137-145) mmol/L Potassium 4.1 (3.5-5.1) mmol/L Chloride 104 (98-107) mmol/L Carbon Dioxide 21 L (22-30) mmol/L BUN 18 (9-20) mg/dL Creatinine 0.80 (0.66-1.25) mg/dL Glucose 99 (74-99) mg/dL Calcium 8.8 (8.4-10.2) mg/dL Calcium panel 07/14/19 Range/Units 11:13 Calcium 8.8 (8.4-10.2) mg/dL Pituitary panel 07/14/19 Range/Units 11:13 Sodium 137 (137-145) mmol/L Potassium 4.1 (3.5-5.1) mmol/L Chloride 104 (98-107) mmol/L Carbon Dioxide 21 L (22-30) mmol/L BUN 18 (9-20) mg/dL Creatinine 0.80 (0.66-1.25) mg/dL Glucose 99 (74-99) mg/dL Calcium 8.8 (8.4-10.2) mg/dL Adrenal panel 07/14/19 Range/Units 11:13 Sodium 137 (137-145) mmol/L Potassium 4.1 (3.5-5.1) mmol/L Chloride 104 (98-107) mmol/L Carbon Dioxide 21 L (22-30) mmol/L BUN 18 (9-20) mg/dL Creatinine 0.80 (0.66-1.25) mg/dL Glucose 99 (74-99) mg/dL Calcium 8.8 (8.4-10.2) mg/dL Assessment and Plan Assessment: The patient scrotal swelling is confined to the left side and is consistent with a benign hydrocele. There is no evidence of hernia or scrotal edema. I discussed the etiology of hydroceles with the patient and his son. The patient says that he is not particularly symptomatic at this time. He says that if it becomes more bothersome he will contact me and at that time surgical treatment may be considered. (1) Hydrocele Current Visit: Yes Status: Acute Code(s): N43.3 - HYDROCELE, UNSPECIFIED SNOMED Code(s): 69674669
[2019-07-15 06:43] LABS: Anisocytosis Marked; HCT 26.9 % (39.0-53.0); HGB 7.8 gm/dL (13.0-17.5); Hypochromasia Marked; MCH 18.7 pg (25.0-35.0); MCHC 28.8 g/dL (31.0-37.0); MCV 64.9 fL (80.0-100.0); Mean Platelet Volume 8.3; Microcytosis Marked; Platelet Count 223 k/uL (150-450); Poikilocytosis Marked; RBC 4.15 m/uL (4.30-5.90)
[2019-07-15 06:54] LABS: African American GFR (CKD) >90 (>60 ml/min/1.73 sqM); Anion Gap 8 mmol/L; Blood Urea Nitrogen 14 mg/dL (9-20); Calcium 8.4 mg/dL (8.4-10.2); Carbon Dioxide 24 mmol/L (22-30); Chloride 104 mmol/L (98-107); Glucose 96 mg/dL (74-99); Potassium 3.9 mmol/L (3.5-5.1); Sodium 136 mmol/L (137-145)
[2019-07-15 06:57] LABS: RDW 25.7 % (11.5-15.5)
[2019-07-15 07:55] LABS: Basophils # (M) 0.05 k/uL (0-0.2); Lymphocytes # (M) 0.75 k/uL (1.0-4.8); Neutrophils % (M) 66 %; Nucleated Red Blood Cells 3 /100 WBC (0-0); Total Cells Counted 200
[2019-07-15 07:57] LABS: Mixed Population RBC Present; Polychromasia Present
[2019-07-15] MEDS: FAMOTIDINE 20 MG TAB PO SCH ×2 (08:36→20:33)
[2019-07-15] MEDS: SODIUM FERRIC GLUCONAT-SUCROSE 125 MG in SODIUM CHLORIDE 0.9% 100 ML IVPB SCH (10:17)
--- NOTE | 2019-07-15 15:33 | P.PN ---
Subjective Progress Note Date: 07/15/19 Principal diagnosis: Patient is 69-year-old male with a known history of hypertension, history of diverticulitis and previous history of tumor on left arm status post amputation was sent to Hospital by his primary care physician due to low hemoglobin level. Patient has been having swelling of his scrotum and went to see his primary care physician. Patient had lab workup done yesterday which showed low hemoglobin and was referred to the hospital. Hemoglobin was found to be 4.6 on admission. Patient has been having exertional short of breath, mild leg swelling and tightness and weakness recently. Patient also reports rectal bleeding and thinks he has some hemorrhoids. Patient had some red stains on toilet When he uses bathroom. Patient does have a history of colectomy secondary to diverticulitis. Otherwise denied any abdominal pain. No nausea vomiting or diarrhea. No recent illnesses. No fever or chills. No chest pain. Patient is being transfused with 2 units of PRBC currently. Iron profile was ordered. FOBT negative. 07/15/2019 Patient is sitting up in bed in no acute distress. No acute overnight issues. Patient received 2 units of packed red blood cells yesterday and hemoglobin today is 7.8. Patient is currently receiving iron transfusion at this time. Patient denies any chest pain, shortness of breath, or palpitations at this time. Patient denies any dizziness or lightheadedness is and is afebrile. Patient denies any nausea or vomiting and has been tolerating diet. Family is at the bedside asking about possible discharge and when he will be discharged. Patient states that he lives at home alone. Guarded prognosis. Objective - Vital Signs Vital signs: Vital Signs Temp 97.5 F L 07/15/19 12:01 Pulse 91 07/15/19 12:01 Resp 18 07/15/19 12:01 BP 148/83 07/15/19 12:01 Pulse Ox 97 07/15/19 12:01 Intake & Output 07/14/19 07/15/19 07/15/19 18:59 06:59 18:59 Intake Total 1690 420 Output Total 600 Balance 1690 -180 Weight 128.2 kg Intake: Intake, IV Titration 350 Amount Sodium Chloride 0.9% 1, 250 000 ml @ 50 mls/hr IV . Q20H [facility] Rx#:[id number] Sodium Ferric Gluconat- 100 Sucrose 125 mg In Sodium Chloride 0.9% 100 ml @ 100 mls/hr IVPB DAILY [facility] Rx#:[id number] Oral 720 420 Blood Product 620 Rc Pheresis 2 As3 Unit 310 [id number] Output: Urine 600 Other: Voiding Method Toilet # Voids 2 0 # Bowel Movements 1 0 - Exam Patient is lying in the bed comfortably, no acute distress, awake alert and oriented. Vital signs are stable. Temp is 97.2F, pulse is 96, respirations are 16, blood pressure 120/60, oxygen saturation is 96% on room air. HEENT: Normocephalic. Neck is supple. Pupils reactive. Nostrils clear. Oral cavity is moist. Ears reveal no drainage. Neck reveals no JVD, carotid bruits, or thyromegaly. CHEST EXAMINATION: Trachea is central. Symmetrical expansion. Bibasilar diminished air entry. Lung hou clear to auscultation and percussion. CARDIAC: Normal S1, S2 with no gallops. No murmurs ABDOMEN: Soft. Bowel sounds normal. No organomegaly. No abdominal bruits. Scrotal swelling and edema. Extremities: 1+ pedal no edema. No clubbing or cyanosis. Left upper extremity amputation. Neurologically awake, alert, oriented x3 with well-coordinated movements. No focal deficits noted Skin: No rash or skin lesions. Psychiatric: Cooperative. Non-suicidal Musculoskeletal: No joint swelling or deformity. Normal range of motion. - Labs CBC & Chem 7: 07/15/19 06:28 07/15/19 06:28 Labs: Abnormal Lab Results - Last 24 Hours (Table) 07/15/19 07/15/19 Range/Units 06:28 06:28 RBC 4.15 L (4.30-5.90) m/uL Hgb 7.8 L (13.0-17.5) gm/dL Hct 26.9 L (39.0-53.0) % MCV 64.9 L (80.0-100.0) fL MCH 18.7 L (25.0-35.0) pg MCHC 28.8 L (31.0-37.0) g/dL RDW 25.7 H (11.5-15.5) % Lymphocytes # (Manual) 0.75 L (1.0-4.8) k/uL Nucleated RBCs 3 H (0-0) /100 WBC Sodium 136 L (137-145) mmol/L Assessment and Plan Assessment: Symptomatic anemia with hemoglobin level 4.6. Likelely due to chronic blood loss and iron deficiency. Patient is receiving iron infusions 2 of 3 today and current hemoglobin today is 7.8. Chronic blood loss anemia likely rectal bleeding from hemorrhoids. 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 Patient is receiving iron infusions at this time and will receive another one tomorrow. Patient is tolerating well. Patient received 2 units of packed red blood cells yesterday and hemoglobin is 7.8 today and will continue to monitor closely. Repeat labs in the morning. Prognosis is guarded. Further recommendations to follow. Possible discharge in 24-48 hours.
[2019-07-15] MEDS: SODIUM CHLORIDE 0.9% 1,000 ML IV SCH (15:50)
[2019-07-16] MEDS: FAMOTIDINE 20 MG TAB PO SCH (08:29)
[2019-07-16] MEDS: SODIUM FERRIC GLUCONAT-SUCROSE 125 MG in SODIUM CHLORIDE 0.9% 100 ML IVPB SCH (10:02)
[2019-07-16 11:51] VITALS: BP 130/80; PULSE 88; RESP 18; TEMP 98
[2019-07-16 11:57] LABS: African American GFR (CKD) >90 (>60 ml/min/1.73 sqM); Anion Gap 6 mmol/L; Blood Urea Nitrogen 14 mg/dL (9-20); Calcium 8.6 mg/dL (8.4-10.2); Carbon Dioxide 27 mmol/L (22-30); Chloride 104 mmol/L (98-107); Glucose 121 mg/dL (74-99); Potassium 4.4 mmol/L (3.5-5.1); Sodium 137 mmol/L (137-145)
[2019-07-16 12:23] LABS: Anisocytosis Marked; Basophils # (A) 0.1 k/uL (0-0.2); Basophils % (A) 1 %; Eosinophils # (A) 0.3 k/uL (0-0.7); Eosinophils % (A) 4 %; HCT 29.9 % (39.0-53.0); HGB 8.4 gm/dL (13.0-17.5); Hypochromasia Marked; Lymphocytes # (A) 0.8 k/uL (1.0-4.8); Lymphocytes % (A) 12 %; MCH 18.6 pg (25.0-35.0); MCV 66.5 fL (80.0-100.0); Mean Platelet Volume 5.9; Microcytosis Marked; Monocytes # (A) 0.4 k/uL (0-1.0); Monocytes % (A) 6 %; Neutrophils # (A) 4.8 k/uL (1.3-7.7); Neutrophils % (A) 73 %; Platelet Count 190 k/uL (150-450); Poikilocytosis Marked; WBC 6.5 k/uL (3.8-10.6)
[2019-07-16 12:24] LABS: RDW 27.7 % (11.5-15.5)
--- NOTE | 2019-07-18 17:52 | P.DS ---
Providers Date of admission: 07/13/19 15:50 Expected date of discharge: 07/16/19 Attending physician: Desirae Mcfarland Consults: 07/14/19 13:58 Consult Physician Routine Consulting Provider: Tc Nevarez Consult Reason/Comments: Scrotal swelling Do you want consulting provider notified?: Yes Primary care physician: [facility] Course: Final diagnosis Symptomatic anemia likely due to chronic blood loss and iron deficiency. Chronic blood loss anemia likely rectal bleeding from hemorrhoids. 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 Patient will also follow-up with urology as needed as discussed. Total time taken is 35 minutes. History of present illness This is a 69 year old male that was recently admitted for low hemoglobin level at his pcp's office and was being closely monitored. During hospitalization patient received 2 units of packed red blood cells and current hemoglobin is 8.4 and stable. Patient denies any bleeding at this time. Patient was seen by urology for swelling of the testicles and recommends outpatient cystoscopy if symptoms persist. Patient received some iron transfusions as well during hospitalization due to iron deficiency and will go home on ferrous sulfate 324mg until follow up primary care provider Dr. Wolfe in [place]. Patient will need repeat labs in 2-3 days. Currently patients condition is stable with much improvement. Patient denies any chest pain, shortness of breath, or palpitations at this time. Patient denies any nausea or vomiting and has been tolerating diet. Patient is afebrile. No reports of any blood loss in the stool at this time. Guarded prognosis. On exam vital signs are stable. BP is 130/80, pulse is 88, resp are 18, temp is 98.0F, and 02 is 95% on room air. Cardio S1, S2 present. Respiratory system shows clear to auscultation. Abdomen is soft and non-tender. Nervous system shows no focal deficits. Please refer to medication reconciliation sheet for a list of medications. Patient Condition at Discharge: Good Plan - Discharge Summary Discharge Rx Participant: Yes New Discharge Prescriptions: New Ferrous Sulfate [Feosol] 325 mg PO DAILY 30 Days #30 tab Discontinued Aspirin EC [Ecotrin Low Dose] 81 mg PO DAILY Discharge Medication List Ferrous Sulfate [Feosol] 325 mg PO DAILY 30 Days #30 tab 07/16/19 [Rx] Follow up Appointment(s)/Referral(s): [facility], [NON-STAFF] - Saravanan Garcia MD [STAFF PHYSICIAN] - As Needed Keyon Olivares DO [Primary Care Provider] - 07/23/19 2:30 pm (Friday) Ambulatory/Diagnostic Orders: Complete Blood Count w/diff [LAB.AMB] Time Frame: 2 Days, Location: None Selected Patient Instructions/Handouts: Iron Deficiency Anemia (ED) Activity/Diet/Wound Care/Special Instructions: Activity limited until follow up continue current diet follow up with primary care provider upon discharge repeat labs in 2-3 days follow up with urology as needed Discharge Disposition: HOME WITH HOME HEALTH SERVICES
== END 2019-07-16 15:05 | disposition home health service (06) | DRG 812 ==
LOC: EC 09:28 → 3SCARD 15:50
PROVIDERS: ADMIT Hospitalist; ATTEND Hospitalist
PROC: 30233N1 Transfusion of Nonautologous Red Blood Cells into Peripheral Vein, Percutaneous Approach (ICD-10-PCS; principal; 2019-07-13)
DX: D50.0 Iron deficiency anemia secondary to blood loss (chronic) (principal); E66.01 Morbid (severe) obesity due to excess calories; I10 Essential (primary) hypertension; K64.4 Residual hemorrhoidal skin tags; N43.3 Hydrocele, unspecified; N50.89 Other specified disorders of the male genital organs; Z68.36 Body mass index [BMI] 36.0-36.9, adult; Z79.82 Long term (current) use of aspirin; Z82.49 Family history of ischemic heart disease and other diseases of the circulatory system; Z87.891 Personal history of nicotine dependence; Z90.49 Acquired absence of other specified parts of digestive tract; Z89.202 Acquired absence of left upper limb, unspecified level; Z85.89 Personal history of malignant neoplasm of other organs and systems; Z92.21 Personal history of antineoplastic chemotherapy; F10.11 Alcohol abuse, in remission
CPT/HCPCS: 36415; 36430; 80048; 80053; 82272; 82728; 83540; 83550; 85025; 85610; 85730; 86850; 86900; 86901; 86920; 99284

== ENCOUNTER → 2019-08-17 | Outpatient (CLI) | payer MEDICARE, BC ==
--- NOTE | 2019-08-17 12:03 | MR ---
MR brain without contrast HISTORY: Cerebral vascular accident Multiplanar multisequence imaging through the brain There is no restricted diffusion. Cortical atrophy is extensive. Ventriculomegaly is present in accor dance with the prominence of the sulci. Probable mucus retention cyst present in the dependent portio n of the right maxillary sinus, there is some mucosal disease in the maxillary sinus on the right, et hmoid air cells. Inflammatory changes are present in the bilateral mastoid air cells. There are lorenzo l vascular flow voids. Periventricular white matter shows some increased signal on inversion recovery T2-weighted sequences possibly due to transependymal flow of CSF. There is a focus of low signal on inversion recovery T2-weighted sequences in the right frontal brain, axial image #23, coronal image # 11 possibly related to hemosiderin,, remote hemorrhage, correlate with the appropriate previous studi es if available. Orbits show symmetric appearance. Cerebellopontine angles, corpus callosum, pituitar y, cervical medullary junction are normal. IMPRESSION: Cortical atrophy, correlate to exclude normal pressure hydrocephalus. Correlate for masto iditis. Sinus disease. Indeterminate focus in the right frontal lobe as described.
== END | disposition home or self-care (01) ==
LOC: RADMRIMAIN 08:44
PROVIDERS: ATTEND Family Medicine
DX: I63.9 Cerebral infarction, unspecified (principal)
CPT/HCPCS: 70551

== ENCOUNTER 2020-04-22 12:31 | Inpatient (IN) | payer MEDICARE, BC ==
--- NOTE | 2020-04-22 13:16 | ED ---
Recheck HPI <Davian Johnson - Last Filed: 04/22/20 14:26> - General Source: EMS Mode of arrival: EMS Limitations: no limitations <Farooq Kendrick - Last Filed: 04/22/20 14:42> - General Chief Complaint: Recheck/Abnormal Lab/Rx Stated Complaint: low hemoglobin Time Seen by Provider: 04/22/20 13:01 - History of Present Illness Initial Comments: Patient is 69-year-old male with history of anemia presenting to the emergency room with a chief complaint of low hemoglobin. Patient states yesterday he was at the primary care physician's office for lab work. Patient states today his son contacted him and told him to go to the emergency department due to low hemoglobin. Patient doesn't know exactly what the hemoglobin levels are. Patient states he has been looking more pale than usual over the last few days. Patient denies any weakness, chest pain, shortness of breath. Patient also reports he has an enlarged left testicle which has been present over the last few years. Patient states he spoke to his primary care who has not done much about it. Patient states it is not painful but rather discomforting. Denies any nausea vomiting diarrhea. Denies history of hematuria, hematochezia or m nichelle. Denies any abdominal pain, hemoptysis or hematemesis. (Farooq Kendrick) - Related Data Home Medications Medication Instructions Recorded Confirmed No Known Home Medications 04/22/20 04/22/20 Allergies Allergy/AdvReac Type Severity Reaction Status Date / Time No Known Allergies Allergy Verified 04/22/20 14:36 Review of Systems ROS Other: All systems not noted in ROS Statement are negative. <Davian Johnson - Last Filed: 04/22/20 14:26> ROS Other: All systems not noted in ROS Statement are negative. <Farooq Kendrick - Last Filed: 04/22/20 14:42> ROS Statement: Those systems with pertinent positive or pertinent negative responses have been documented in the HPI. 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 [place] Past Anesthesia/Blood Transfusion Reactions: No Reported Reaction Past Psychological History: No Psychological Hx Reported Smoking Status: Never smoker Past Alcohol Use History: None Reported Past Drug Use History: None Reported - Past Family History Father History Unknown: Yes Mother Family Medical History: Coronary Artery Disease (CAD) <MireilleFarooq - Last Filed: 04/22/20 14:42> General Exam Limitations: no limitations General appearance: alert, in no apparent distress, obese Head exam: Present: atraumatic, normocephalic, normal inspection Eye exam: Present: normal appearance, PERRL, EOMI, other (Pale conjunctiva) Pupils: Present: normal accommodation ENT exam: Present: normal exam, normal oropharynx, mucous membranes moist (Pale mucous membrane) Neck exam: Present: normal inspection, full ROM. Absent: tenderness Respiratory exam: Present: normal lung sounds bilaterally. Absent: respiratory distress, wheezes Cardiovascular Exam: Present: regular rate, normal rhythm, normal heart sounds GI/Abdominal exam: Present: soft. Absent: distended, tenderness, guarding Rectal exam: Present: normal inspection, normal rectal tone, heme (-) stool, hemorrhoids (External hemorrhoids) exam: Absent: normal inspection (Left testicular enlargement.), testicular tenderness, urethral discharge, scrotal swelling, vertical testicular lie Extremities exam: Present: normal inspection, full ROM, normal capillary refill, other (Left upper extremity amputation). Absent: tenderness Back exam: Present: normal inspection, full ROM Neurological exam: Present: alert, oriented X3, CN II-XII intact, normal gait Psychiatric exam: Present: normal affect, normal mood Skin exam: Present: warm, dry, intact, normal color, pallor <Farooq Kendrick - Last Filed: 04/22/20 14:42> Course <Davian Jonhson - Last Filed: 04/22/20 14:26> Vital Signs 04/22/20 12:34 Temperature 99.3 F Pulse Rate 110 H Respiratory 20 Rate Blood Pressure 133/79 O2 Sat by Pulse 97 Oximetry - Reevaluation(s) Reevaluation #1: 04/22/20 14:27 PA supervision: I personally evaluate this patient he does present with complaints of impaired L and perhaps weak he was seen by his doctor recently had a hemoglobin level that was low. The patient denies any bleeding or abdominal pain. He is unable 6.1 hemoglobin. He will be admitted for inpatient evaluation and blood transfusion. I did discuss the case with Dr. Mace (Davian Johnson) Medical Decision Making - Lab Data Result diagrams: 04/22/20 12:55 04/22/20 12:55 <Davian Johnson - Last Filed: 04/22/20 14:26> - Lab Data Result diagrams: 04/22/20 12:55 04/22/20 12:55 <Farooq Kendrick - Last Filed: 04/22/20 14:42> - Medical Decision Making Patient is a 69-year-old male with history of anemia presenting to emergency Department with chief complaint low hemoglobin. On exam patient does have pale conjunctiva along with pallor to mucous membranes. No signs of melena on rectal examination. Although, he does have a stable external hemorrhoid. No active bleeding at this time. Hemoccult is negative. Patient has a hemoglobin of 6.1. Patient is O-. Patient will be started on blood transfusion center with 1 unit. Patient will be admitted for further medical management. Case discussed with Dr. Johnson. Admitting physician is (Farooq Kendrick) - Lab Data Lab Results 04/22/20 04/22/20 04/22/20 Range/Units 12:42 12:42 12:55 WBC 7.7 (3.8-10.6) k/uL RBC 4.43 (4.30-5.90) m/uL Hgb 6.1 L* (13.0-17.5) gm/dL Hct 25.5 L (39.0-53.0) % MCV 57.6 L (80.0-100.0) fL MCH 13.8 L (25.0-35.0) pg MCHC 23.9 L (31.0-37.0) g/dL RDW 19.2 H (11.5-15.5) % Plt Count 268 (150-450) k/uL Neutrophils % 74 % Lymphocytes % 12 % Monocytes % 9 % Eosinophils % 3 % Basophils % 0 % Neutrophils # 5.7 (1.3-7.7) k/uL Lymphocytes # 0.9 L (1.0-4.8) k/uL Monocytes # 0.7 (0-1.0) k/uL Eosinophils # 0.2 (0-0.7) k/uL Basophils # 0.0 (0-0.2) k/uL Manual Slide Review Performed Hypochromasia Marked Anisocytosis Slight Microcytosis Marked PT (9.0-12.0) sec INR (<1.2) APTT (22.0-30.0) sec Sodium (137-145) mmol/L Potassium (3.5-5.1) mmol/L Chloride (98-107) mmol/L Carbon Dioxide (22-30) mmol/L Anion Gap mmol/L BUN (9-20) mg/dL Creatinine (0.66-1.25) mg/dL Est GFR (CKD-EPI)AfAm (>60 ml/min/1.73 sqM) Est GFR (CKD-EPI)NonAf (>60 ml/min/1.73 sqM) Glucose (74-99) mg/dL Plasma Lactic Acid Luis (0.7-2.0) mmol/L Calcium (8.4-10.2) mg/dL Total Bilirubin (0.2-1.3) mg/dL AST (17-59) U/L ALT (4-49) U/L Alkaline Phosphatase (38-126) U/L Troponin I <0.012 (0.000-0.034) ng/mL Total Protein (6.3-8.2) g/dL Albumin (3.5-5.0) g/dL Stool Occult Blood (Negative) Blood Type O Negative Blood Type Recheck O Neg Bld Type Recheck Status No Antibody Screen NEGATIVE Crossmatch See Detail Spec Expiration Date 04/25/2020 - 234104/22/20 04/22/20 04/22/20 Range/Units 12:55 12:55 13:13 WBC (3.8-10.6) k/uL RBC (4.30-5.90) m/uL Hgb (13.0-17.5) gm/dL Hct (39.0-53.0) % MCV (80.0-100.0) fL MCH (25.0-35.0) pg MCHC (31.0-37.0) g/dL RDW (11.5-15.5) % Plt Count (150-450) k/uL Neutrophils % % Lymphocytes % % Monocytes % % Eosinophils % % Basophils % % Neutrophils # (1.3-7.7) k/uL Lymphocytes # (1.0-4.8) k/uL Monocytes # (0-1.0) k/uL Eosinophils # (0-0.7) k/uL Basophils # (0-0.2) k/uL Manual Slide Review Hypochromasia Anisocytosis Microcytosis PT 10.6 (9.0-12.0) sec INR 1.0 (<1.2) APTT 22.6 (22.0-30.0) sec Sodium 137 (137-145) mmol/L Potassium 4.3 (3.5-5.1) mmol/L Chloride 105 (98-107) mmol/L Carbon Dioxide 25 (22-30) mmol/L Anion Gap 7 mmol/L BUN 14 (9-20) mg/dL Creatinine 0.85 (0.66-1.25) mg/dL Est GFR (CKD-EPI)AfAm >90 (>60 ml/min/1.73 sqM) Est GFR (CKD-EPI)NonAf 88 (>60 ml/min/1.73 sqM) Glucose 104 H (74-99) mg/dL Plasma Lactic Acid Luis 1.3 (0.7-2.0) mmol/L Calcium 8.6 (8.4-10.2) mg/dL Total Bilirubin 0.5 (0.2-1.3) mg/dL AST 15 L (17-59) U/L ALT 9 (4-49) U/L Alkaline Phosphatase 49 (38-126) U/L Troponin I (0.000-0.034) ng/mL Total Protein 6.3 (6.3-8.2) g/dL Albumin 3.7 (3.5-5.0) g/dL Stool Occult Blood (Negative) Blood Type Blood Type Recheck Bld Type Recheck Status Antibody Screen Crossmatch Spec Expiration Date 04/22/20 Range/Units 13:16 WBC (3.8-10.6) k/uL RBC (4.30-5.90) m/uL Hgb (13.0-17.5) gm/dL Hct (39.0-53.0) % MCV (80.0-100.0) fL MCH (25.0-35.0) pg MCHC (31.0-37.0) g/dL RDW (11.5-15.5) % Plt Count (150-450) k/uL Neutrophils % % Lymphocytes % % Monocytes % % Eosinophils % % Basophils % % Neutrophils # (1.3-7.7) k/uL Lymphocytes # (1.0-4.8) k/uL Monocytes # (0-1.0) k/uL Eosinophils # (0-0.7) k/uL Basophils # (0-0.2) k/uL Manual Slide Review Hypochromasia Anisocytosis Microcytosis PT (9.0-12.0) sec INR (<1.2) APTT (22.0-30.0) sec Sodium (137-145) mmol/L Potassium (3.5-5.1) mmol/L Chloride (98-107) mmol/L Carbon Dioxide (22-30) mmol/L Anion Gap mmol/L BUN (9-20) mg/dL Creatinine (0.66-1.25) mg/dL Est GFR (CKD-EPI)AfAm (>60 ml/min/1.73 sqM) Est GFR (CKD-EPI)NonAf (>60 ml/min/1.73 sqM) Glucose (74-99) mg/dL Plasma Lactic Acid Luis (0.7-2.0) mmol/L Calcium (8.4-10.2) mg/dL Total Bilirubin (0.2-1.3) mg/dL AST (17-59) U/L ALT (4-49) U/L Alkaline Phosphatase (38-126) U/L Troponin I (0.000-0.034) ng/mL Total Protein (6.3-8.2) g/dL Albumin (3.5-5.0) g/dL Stool Occult Blood Negative (Negative) Blood Type Blood Type Recheck Bld Type Recheck Status Antibody Screen Crossmatch Spec Expiration Date - EKG Data EKG Comments: Incomplete right bundle branch block. Sinus tachycardia. Ventricular rate 103, MA 194, QRS 102, QTC 463. (Farooq Kendrick) Disposition <Davian Johnson - Last Filed: 04/22/20 14:26> Is patient prescribed a controlled substance at d/c from ED?: No Time of Disposition: 14:42 <Farooq Kendrick - Last Filed: 04/22/20 14:42> Clinical Impression: Anemia, Hemoglobin low Disposition: ADMITTED IP TO THIS HOSP Condition: Good Additional Instructions: She will be admitted Referrals: Keyon Olivares DO [Primary Care Provider] - 1-2 days
[2020-04-22 13:18] LABS: ALT 9 U/L (4-49); AST 15 U/L (17-59); African American GFR (CKD) >90 (>60 ml/min/1.73 sqM); Albumin 3.7 g/dL (3.5-5.0); Alkaline Phosphatase 49 U/L (38-126); Anion Gap 7 mmol/L; Blood Urea Nitrogen 14 mg/dL (9-20); Calcium 8.6 mg/dL (8.4-10.2); Carbon Dioxide 25 mmol/L (22-30); Chloride 105 mmol/L (98-107); Glucose 104 mg/dL (74-99); Non-African American GFR(CKD) 88 (>60 ml/min/1.73 sqM); Potassium 4.3 mmol/L (3.5-5.1); Sodium 137 mmol/L (137-145); Total Bilirubin 0.5 mg/dL (0.2-1.3); Total Protein 6.3 g/dL (6.3-8.2)
[2020-04-22 13:27] LABS: Anisocytosis Slight; Basophils % (A) 0 %; Eosinophils # (A) 0.2 k/uL (0-0.7); Eosinophils % (A) 3 %; HCT 25.5 % (39.0-53.0); Hypochromasia Marked; Lymphocytes # (A) 0.9 k/uL (1.0-4.8); Lymphocytes % (A) 12 %; MCH 13.8 pg (25.0-35.0); MCHC 23.9 g/dL (31.0-37.0); MCV 57.6 fL (80.0-100.0); Mean Platelet Volume 6.4; Microcytosis Marked; Monocytes # (A) 0.7 k/uL (0-1.0); Monocytes % (A) 9 %; Neutrophils # (A) 5.7 k/uL (1.3-7.7); Neutrophils % (A) 74 %; Platelet Count 268 k/uL (150-450); RBC 4.43 m/uL (4.30-5.90); RDW 19.2 % (11.5-15.5); WBC 7.7 k/uL (3.8-10.6)
[2020-04-22 13:32] LABS: Partial Thromboplastin Time 22.6 sec (22.0-30.0); Prothrombin Time 10.6 sec (9.0-12.0)
[2020-04-22 13:35] LABS: HGB 6.1 gm/dL (13.0-17.5)
[2020-04-22] MEDS ORDERED: NALOXONE 0.4 MG/ML 1 ML VIAL IV PRN (14:24)
[2020-04-22] MEDS ORDERED: LORazepam 2 MG/ML INJ IV PRN (14:24)
[2020-04-22] MEDS ORDERED: ACETAMINOPHEN TAB 325 MG TAB PO PRN (14:24)
[2020-04-22] MEDS ORDERED: HYDROmorphone 0.5 MG/0.5 ML SYRINGE IVP PRN (14:24)
--- NOTE | 2020-04-22 17:00 | P.HPIM ---
History of Present Illness H&P Date: 04/22/20 Chief Complaint: Abnormal lab for This is a 69-year-old male with no significant past medical history who presented to the emergency room with abnormal lab work. Patient said that a few days ago he had blood work done with his primary care doctor and he was cold for abnormal results. In the ER hemoglobin was 6.1. Patient denies any bleeding or black stool. Stool Hemoccult test in the ER was negative. Patient denies any abdominal pain. Does not take any medications at home. Denies shortness of breath or weakness or dizziness. Patient had similar presentation in June of last see where he was hospitalized and required blood transfusion. Patient told me that he never had any upper or lower endoscopy. He had never further workup for his underlying anemia. Review of Systems Review of system: 14 points review of systems were obtained and were negative except to what were mentioned in the HPI. 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 [place] Past Anesthesia/Blood Transfusion Reactions: No Reported Reaction Past Psychological History: No Psychological Hx Reported Smoking Status: Never smoker Past Alcohol Use History: None Reported Additional Past Alcohol Use History / Comment(s): smoked cigars years ago; has been a drinker since he was 14 years old and it has progressively gotten worse; just quit january 2018; now drinks non alcoholic beer Past Drug Use History: None Reported - Past Family History Father History Unknown: Yes Mother Family Medical History: Coronary Artery Disease (CAD) Medications and Allergies Home Medications Medication Instructions Recorded Confirmed Type No Known Home Medications 04/22/20 04/22/20 History Allergies Allergy/AdvReac Type Severity Reaction Status Date / Time No Known Allergies Allergy Verified 04/22/20 14:36 Physical Exam Vitals: Vital Signs Temp Pulse Resp BP Pulse Ox 04/22/20 15:32 99.3 F 95 18 135/73 99 04/22/20 15:02 98.4 F 104 H 16 134/79 99 04/22/20 14:52 98.2 F 105 H 16 125/72 100 04/22/20 14:42 98.2 F 106 H 16 133/81 98 04/22/20 14:41 98.5 F 98 16 153/74 97 04/22/20 12:34 99.3 F 110 H 20 133/79 97 Intake and Output 04/22/20 04/22/20 04/22/20 06:59 14:59 22:59 Intake Total 0 Balance 0 Intake: Blood Product 0 Rc As-1 Unit 0 [id number] Other: Voiding Method Toilet Weight 83.007 kg 83.007 kg General: The patient is awake and alert, in no distress Eye: there is normal conjunctiva bilaterally. Neck: The neck is supple, there is no JVD. Cardiovascular: Normal S1-S2, no S3-S4, no murmurs. Respiratory: Lungs clear to auscultation bilaterally Gastrointestinal: Abdomen is soft, nontender Musculoskeletal: There is no pedal edema. Left upper extremity amputated Neurological:. Speech is normal. Skin: Skin is warm and dry Results CBC & Chem 7: 04/22/20 12:55 04/22/20 12:55 Labs: Abnormal Lab Results - Last 24 Hours (Table) 04/22/20 04/22/20 04/22/20 Range/Units 12:42 12:55 12:55 Hgb 6.1 L* (13.0-17.5) gm/dL Hct 25.5 L (39.0-53.0) % MCV 57.6 L (80.0-100.0) fL MCH 13.8 L (25.0-35.0) pg MCHC 23.9 L (31.0-37.0) g/dL RDW 19.2 H (11.5-15.5) % Lymphocytes # 0.9 L (1.0-4.8) k/uL Glucose 104 H (74-99) mg/dL AST 15 L (17-59) U/L Crossmatch See Detail Thrombosis Risk Factor Assmnt - Choose All That Apply Each Risk Factor Represents 2 Points: Age 61-74 years Thrombosis Risk Factor Assessment Total Risk Factor Score: 2 Thrombosis Risk Factor Assessment Level: Low Risk Assessment and Plan Assessment: 1. Acute on chronic anemia, microcytic, most likely iron deficiency. I was unable to send iron studies as patient already received blood transfusion in the ER. Stool Hemoccult test in the ER was negative with no evidence of GI bleed. Patient will definitely need an EGD and a colonoscopy on a nonemergent basis. I will consult GI to decide on timing for endoscopies and consult hematology for further evaluation. I would order a second unit of blood given the severity of his anemia. 2. History of recurrent diverticulitis status post laparotomy with partial colectomy many years ago 3. History of left upper extremity amputation in 1976 4. DVT prophylaxis subcu heparin
[2020-04-22] MEDS: PANTOPRAZOLE 40 MG/10 ML VIAL IVP SCH (17:53)
[2020-04-22] MEDS: HEPARIN SODIUM,PORCINE 5,000 UNIT/ML 1 ML VIAL SQ SCH (20:17)
[2020-04-23 07:33] LABS: African American GFR (CKD) >90 (>60 ml/min/1.73 sqM); Anion Gap 7 mmol/L; Blood Urea Nitrogen 10 mg/dL (9-20); Calcium 8.6 mg/dL (8.4-10.2); Carbon Dioxide 26 mmol/L (22-30); Chloride 104 mmol/L (98-107); Glucose 91 mg/dL (74-99); Non-African American GFR(CKD) >90 (>60 ml/min/1.73 sqM); Potassium 4.2 mmol/L (3.5-5.1); Sodium 137 mmol/L (137-145)
[2020-04-23] MEDS: PANTOPRAZOLE 40 MG/10 ML VIAL IVP SCH (07:52)
[2020-04-23] MEDS: HEPARIN SODIUM,PORCINE 5,000 UNIT/ML 1 ML VIAL SQ SCH ×2 (07:52→20:02)
[2020-04-23 08:10] LABS: Anisocytosis Moderate; Basophils % (A) 0 %; Eosinophils # (A) 0.3 k/uL (0-0.7); Eosinophils % (A) 4 %; HCT 27.8 % (39.0-53.0); HGB 7.4 gm/dL (13.0-17.5); Hypochromasia Marked; Lymphocytes # (A) 0.9 k/uL (1.0-4.8); Lymphocytes % (A) 13 %; MCH 15.7 pg (25.0-35.0); MCHC 26.6 g/dL (31.0-37.0); MCV 59.2 fL (80.0-100.0); Mean Platelet Volume 6.4; Microcytosis Marked; Monocytes # (A) 0.6 k/uL (0-1.0); Monocytes % (A) 9 %; Neutrophils # (A) 5.2 k/uL (1.3-7.7); Neutrophils % (A) 72 %; Platelet Count 225 k/uL (150-450); Poikilocytosis Marked; RDW 22.2 % (11.5-15.5); WBC 7.3 k/uL (3.8-10.6)
--- NOTE | 2020-04-23 12:36 | P.CONS ---
History of Present Illness - Reason for Consult Consult date: 04/23/20 Anemia Requesting physician: Sandy Mace - Chief Complaint Cold, sent to the ER for severe anemia found on lab work - History of Present Illness Mr. Luque is a very pleasant 69-year-old male patient of primary care physician Dr. Wolfe we've been asked to see regarding microcytic, hypochromic anemia. Patient states that he was first noted to be anemic in the fall of 2018, never prior. At that time patient had a significantly low hemoglobin, I believe around 4.1, he received transfusion. Recommendation was for him to follow-up with a assurance engineer as he had never had colonoscopy or EGD. Patient states that he did not follow-up. He denies any epistaxis, hemoptysis, hematuria, he does have an occasional, small amount of bleeding from hemorrhoids, no hematochezia or melena. He feels that he has a pretty decent balanced diet, he had abdominal surgery with a very largelymph node removed many years ago-does not know what it was-that left a significant scar, no other treatment, no bariatric surgery. He denies any liver, kidney disease or diabetes. He is a past history of smoking as well as EtOH abuse but, he now drinks non-alcoholic beverages. 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 It came about after an injury and it ultimately led to removal of the arm and the shoulder, he had radiation and chemo. Since states he is otherwise in good health, he denies any fevers, recent illnesses, nausea, vomiting, appetite is good, no severe indigestion, heartburn, abdominal pain or cramping, diarrhea or constipation/acute changes in bowel habits, he does have a swollen testicle, this was evaluated by urology last year and felt to be a hydrocele, he denies any signs or symptoms of infection in the area, no shortness of breath, cough, chest pains or leg swelling. Patient denies any pain. Did not serve in the . 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 [place] Past Anesthesia/Blood Transfusion Reactions: No Reported Reaction Past Psychological History: No Psychological Hx Reported Smoking Status: Never smoker Past Alcohol Use History: None Reported Additional Past Alcohol Use History / Comment(s): smoked cigars years ago; has been a drinker since he was 14 years old and it has progressively gotten worse; just quit january 2018; now drinks non alcoholic beer Past Drug Use History: None Reported - Past Family History Father History Unknown: Yes Mother Family Medical History: Coronary Artery Disease (CAD) Medications and Allergies Home Medications Medication Instructions Recorded Confirmed Type No Known Home Medications 04/22/20 04/22/20 History Allergies Allergy/AdvReac Type Severity Reaction Status Date / Time No Known Allergies Allergy Verified 04/22/20 14:36 Physical Exam Vitals: Vital Signs Temp Pulse Pulse Resp BP BP Pulse Ox 04/23/20 07:00 98.7 F 91 18 143/71 94 L 04/23/20 02:55 98.1 F 55 L 152/73 97 04/22/20 21:31 98.2 F 91 16 158/86 99 04/22/20 21:29 98.2 F 91 16 158/86 99 04/22/20 19:11 98.6 F 87 16 151/74 98 04/22/20 18:41 98.3 F 88 16 141/72 95 04/22/20 18:31 98.9 F 88 16 132/66 96 04/22/20 17:17 98.8 F 89 16 144/75 95 04/22/20 15:32 99.3 F 95 18 135/73 99 04/22/20 15:02 98.4 F 104 H 16 134/79 99 04/22/20 14:52 98.2 F 105 H 16 125/72 100 04/22/20 14:42 98.2 F 106 H 16 133/81 98 04/22/20 14:41 98.5 F 98 16 153/74 97 04/22/20 12:34 99.3 F 110 H 20 133/79 97 Intake and Output 04/22/20 04/23/20 04/23/20 22:59 06:59 14:59 Intake Total 620 Balance 620 Intake: Blood Product 620 As-1 Unit 310 [id number] Rc As-1 Unit 310 [id number] Other: Voiding Method Toilet Toilet Toilet # Voids 3 8 # Bowel Movements 1 Weight 83.007 kg - Constitutional General appearance: cooperative, no acute distress, obese - EENT Eyes: anicteric sclerae, EOMI ENT: hearing grossly normal, normal oropharynx - Neck Neck: no lymphadenopathy - Respiratory Respiratory: bilateral: CTA - Cardiovascular Rhythm: regular Heart sounds: normal: S1, S2 Abnormal Heart Sounds: no systolic murmur, no diastolic murmur, no rub, no S3 Gallop, no S4 Gallop, no click, no other leg Peripheral Edema: bilateral: None - Gastrointestinal General gastrointestinal: no absent bowel sounds, no decreased bowel sounds, no distended, no hepatomegaly, no hyperactive bowel sounds, normal bowel sounds, no organomegaly, no rigid, no scaphoid, soft, splenomegaly, no tenderness, no umbilical hernia, no ventral hernia - Integumentary Integumentary: pale - Neurologic Neurologic: CNII-XII intact - Musculoskeletal Musculoskeletal: strength equal bilaterally - Psychiatric Psychiatric: A&O x's 3, appropriate affect, intact judgment & insight Results CBC & Chem 7: 04/23/20 06:39 04/23/20 06:39 Labs: Abnormal Lab Results - Last 24 Hours (Table) 04/22/20 04/22/20 04/22/20 Range/Units 12:42 12:55 12:55 Hgb 6.1 L* (13.0-17.5) gm/dL Hct 25.5 L (39.0-53.0) % MCV 57.6 L (80.0-100.0) fL MCH 13.8 L (25.0-35.0) pg MCHC 23.9 L (31.0-37.0) g/dL RDW 19.2 H (11.5-15.5) % Lymphocytes # 0.9 L (1.0-4.8) k/uL Glucose 104 H (74-99) mg/dL AST 15 L (17-59) U/L Crossmatch See Detail 04/23/20 Range/Units 06:39 Hgb 7.4 L (13.0-17.5) gm/dL Hct 27.8 L (39.0-53.0) % MCV 59.2 L (80.0-100.0) fL MCH 15.7 L (25.0-35.0) pg MCHC 26.6 L (31.0-37.0) g/dL RDW 22.2 H (11.5-15.5) % Lymphocytes # 0.9 L (1.0-4.8) k/uL Glucose (74-99) mg/dL AST (17-59) U/L Crossmatch Assessment and Plan (1) Microcytic hypochromic anemia Narrative/Plan: Spoke with laboratory, they do have blood from admission, have requested iron studies on that specimen. Transfuse to keep patient's hemoglobin at 7 or higher. Agree with referral to Gastroenterology for endoscopy as patient has never had the same. I told patient that Hematology follow-up would likely be required. This can be done outpatient. I will keep his contact information Current Visit: Yes Status: Acute Priority: High Code(s): D50.9 - IRON DEFICIENCY ANEMIA, UNSPECIFIED SNOMED Code(s): 55947109 (2) History of ETOH abuse Narrative/Plan: Possibly led to some liver disease, splenomegaly on palpation. Pending GI eval and work up Current Visit: No Status: Chronic Priority: Low Code(s): F10.11 - ALCOHOL ABUSE, IN REMISSION SNOMED Code(s): 379939163
[2020-04-23] MEDS ORDERED: PEG 3350-NA SULF,BICARB,CL/KCL 4,000 ML BOTTLE PO ONE (16:08)
--- NOTE | 2020-04-23 18:09 | P.PN ---
Subjective Progress Note Date: 04/23/20 Patient is doing well today. No signs of active bleeding. Repeat hemoglobin this morning 7.4. Objective - Vital Signs Vital signs: Vital Signs Temp 98.7 F 04/23/20 14:42 Pulse 89 04/23/20 14:42 Resp 18 04/23/20 14:42 BP 158/79 04/23/20 14:42 Pulse Ox 96 04/23/20 14:42 Intake & Output 04/22/20 04/23/20 04/23/20 18:59 06:59 18:59 Intake Total 310 310 Balance 310 310 Weight 83.007 kg Intake: Blood Product 310 310 Rc As-1 Unit 310 [id number] Rc As-1 Unit 0 310 [id number] Other: Voiding Method Toilet Toilet Toilet # Voids 1 8 8 # Bowel Movements 1 - Exam General: The patient is awake and alert, in no distress Eye: there is normal conjunctiva bilaterally. Neck: The neck is supple, there is no JVD. Cardiovascular: Normal S1-S2, no S3-S4, no murmurs. Respiratory: Lungs clear to auscultation bilaterally Gastrointestinal: Abdomen is soft, nontender Musculoskeletal: There is no pedal edema. Neurological:. Speech is normal. Skin: Skin is warm and dry - Labs CBC & Chem 7: 04/23/20 06:39 04/23/20 06:39 Labs: Abnormal Lab Results - Last 24 Hours (Table) 04/22/20 04/23/20 Range/Units 12:42 06:39 Hgb 7.4 L (13.0-17.5) gm/dL Hct 27.8 L (39.0-53.0) % MCV 59.2 L (80.0-100.0) fL MCH 15.7 L (25.0-35.0) pg MCHC 26.6 L (31.0-37.0) g/dL RDW 22.2 H (11.5-15.5) % Lymphocytes # 0.9 L (1.0-4.8) k/uL Crossmatch See Detail Assessment and Plan Assessment: 1. Acute on chronic anemia, microcytic, most likely iron deficiency. I was unable to send iron studies as patient already received blood transfusion in the ER. Stool Hemoccult test in the ER was negative with no evidence of GI bleed. Scheduled for EGD and colonoscopy tomorrow. Seen by hematology, appreciate recommendations. 2. History of recurrent diverticulitis status post laparotomy with partial colectomy many years ago 3. History of left upper extremity amputation in 1976 4. DVT prophylaxis subcu heparin
[2020-04-24 06:57] LABS: Anisocytosis Moderate; Basophils # (A) 0.1 k/uL (0-0.2); Basophils % (A) 1 %; Eosinophils # (A) 0.2 k/uL (0-0.7); Eosinophils % (A) 3 %; Hypochromasia Marked; Lymphocytes # (A) 0.9 k/uL (1.0-4.8); Lymphocytes % (A) 12 %; MCH 15.8 pg (25.0-35.0); MCHC 26.6 g/dL (31.0-37.0); MCV 59.6 fL (80.0-100.0); Mean Platelet Volume 6.5; Microcytosis Marked; Monocytes # (A) 0.6 k/uL (0-1.0); Monocytes % (A) 8 %; Neutrophils # (A) 5.6 k/uL (1.3-7.7); Neutrophils % (A) 73 %; Platelet Count 233 k/uL (150-450); Poikilocytosis Moderate; RBC 5.04 m/uL (4.30-5.90); RDW 22.6 % (11.5-15.5); WBC 7.7 k/uL (3.8-10.6)
[2020-04-24 07:15] LABS: African American GFR (CKD) >90 (>60 ml/min/1.73 sqM); Anion Gap 9 mmol/L; Blood Urea Nitrogen 10 mg/dL (9-20); Calcium 8.5 mg/dL (8.4-10.2); Carbon Dioxide 25 mmol/L (22-30); Chloride 103 mmol/L (98-107); Glucose 90 mg/dL (74-99); Non-African American GFR(CKD) >90 (>60 ml/min/1.73 sqM); Potassium 4.3 mmol/L (3.5-5.1); Sodium 137 mmol/L (137-145)
[2020-04-24 07:29] VITALS: RESP 18; TEMP 97.5
[2020-04-24] MEDS: HEPARIN SODIUM,PORCINE 5,000 UNIT/ML 1 ML VIAL SQ SCH (08:02)
[2020-04-24] MEDS ORDERED: PANTOPRAZOLE 40 MG TABLET PO SCH (09:00)
[2020-04-24 10:19] LABS: % Iron Saturation 2.21 (15.00-50.00)
[2020-04-24] MEDS ORDERED: SODIUM FERRIC GLUCONAT-SUCROSE 125 MG in SODIUM CHLORIDE 0.9% 100 ML IVPB SCH (11:00)
[2020-04-24] MEDS ORDERED: LIDOCAINE 1% INJ 10MG/ML (20 ML MDV) ONE (11:21)
[2020-04-24] MEDS ORDERED: PROPOFOL 10 MG/ML 20 ML VIAL IV ONE (11:21)
[2020-04-24] MEDS ORDERED: IV FLUID CONTINUATION 1,000 ML IV ONE ×2 (11:23)
--- NOTE | 2020-04-24 11:48 | P.PCN ---
Date of Procedure: 04/24/20 Procedure(s) Performed: Brief history: Patient is a pleasant 69-year-old white male admitted hospital with severe symptomatic anemia and hemoglobin of 6.1 g/dL and iron indices consistent with iron deficiency anemia. He received 2 units of PRBC transfusion. His hemoglobin g/d today is 8 g/dL. Because of the severe iron deficiency anemia he is. scheduled for an elective upper endoscopy as well as colonoscopy. Patient states that he has prior history of bowel resection. Procedure performed: Esophagogastroduodenoscopy with biopsy Colonoscopy Preoperative diagnosis: Severe hypochromic microcytic anemia/iron deficiency anemia Anesthesia: [facility] Procedure: After informed consent was obtained from the patient was brought into the endoscopy unit and IV sedation was administered by anesthesia under continuous monitoring. Initially upper endoscopy was done. The Olympus GF 160 video endos cope was inserted inserted into the mouth and esophagus intubated without any difficulty and was gradually advanced into the stomach and duodenum and carefully examined. The bulb and second part of the duodenum appeared normal. The scope was then withdrawn into the stomach adequately insufflated with air and upon careful examination the antrum and body, cardia and fundus appeared normal. The scope was then withdrawn into the esophagus. The GE junction was located at 40 cm to the incisors. It appeared regular with no erythema erosions or ulcerations. Rest of the esophagus appeared normal. Patient tolerated the procedure well. At this time the patient continued to remain sedation. Initial digital rectal examination was normal. Olympus CF 160 video colonoscope was then inserted into the rectum and gradually advanced to the the ascending colon and at 60 cm from the anal was there was evidence of ileocolonic anastomosis which appeared normal. The distal ileum appeared normal. Mucosa of the, descending colon, sigmoid colon and rectum appeared normal. Retroflexion was performed in the rectum and no lesions were noted. Patient tolerated the procedure well. Impression: 1. Upper endoscopy revealed antral erosive gastritis as well as 5 mm duodenal bulbar ulcer status post biopsies. 2. Colonoscopy revealed evidence of prior colon surgery with ileocolic anastomosis at 60 cm from the anal verge. Colon appeared normal. No evidence of colorectal neoplasia Recommendations: Findings of this examination were discussed with the patient . He was advised to follow with the biopsy results. He will be started on Protonix 40 mg daily. He was advised to avoid NSAIDs and aspirin. Start iron supplementation. He can be discharged home today with outpatient follow-up in 2 weeks.
--- NOTE | 2020-04-24 12:04 | P.DS ---
Providers Date of admission: 04/22/20 14:26 Expected date of discharge: 04/24/20 Attending physician: Sandy Mace Consults: 04/23/20 10:51 Consult Physician Routine Consulting Provider: Ct Dozier Consult Reason/Comments: anemia Do you want consulting provider notified?: Yes 04/23/20 10:52 Consult Physician Routine Consulting Provider: Mandy Gomez Consult Reason/Comments: anemia Do you want consulting provider notified?: Yes Primary care physician: Keyon Olivares [facility] Hospital Course: This is a 69-year-old male with past medical history noted below presented to [facility] emergency room with abnormal lab work. Patient was evaluated in the ER and was found to have a hemoglobin of 6.3. Patient was admitted to the hospital for further management 1. Acute on chronic anemia, microcytic, most likely iron deficiency. Patient underwent EGD showing antral erosive gastritis with a nonbleeding duodenal ulcer. He was started on Protonix 40 mg daily and iron supplement twice a day. Patient also underwent colonoscopy showing no evidence or source of bleeding. Stool Hemoccult test in the ER was negative with no evidence of GI bleed. 2. History of recurrent diverticulitis status post laparotomy with partial colectomy many years ago 3. History of left upper extremity amputation in 1976 patient needs to follow-up with his PCP regarding biopsy results to rule out H. pylori Patient will be discharged home in a stable condition. For further details about this hospitalization please refer to the electronic chart. Patient Condition at Discharge: Fair Plan - Discharge Summary Discharge Rx Participant: No New Discharge Prescriptions: New Ferrous Sulfate [Feosol] 325 mg PO BID #60 tab Pantoprazole Sodium [Protonix] 40 mg PO DAILY #30 tablet. Discharge Medication List Ferrous Sulfate [Feosol] 325 mg PO BID #60 tab 04/24/20 [Rx] Pantoprazole Sodium [Protonix] 40 mg PO DAILY #30 tablet. 04/24/20 [Rx] Follow up Appointment(s)/Referral(s): Keyon Olivares DO [Primary Care Provider] - 3 Days Activity/Diet/Wound Care/Special Instructions: She will be admitted Discharge Disposition: HOME SELF-CARE
--- NOTE | 2020-04-24 13:59 | CONS ---
CONSULTATION DATE OF SERVICE: 04/24/2020 REASON FOR CONSULTATION: Severe symptomatic anemia. HISTORY OF PRESENT ILLNESS: The patient is a 69-year-old pleasant white male admitted to hospital because of low hemoglobin of 6.1 g/dL. The patient had routine labs done by his PCP and was contacted him to go to the emergency room. He had his repeat labs showed a hemoglobin of 6.1 with decreased MCV and iron indices consistent with iron-deficiency anemia. The patient has been complaining of fatigue and weakness. He denies any abdominal pain. No nausea, vomiting. No rectal bleeding or melena. No prior history of peptic ulcer disease or recent NSAID use and he is not on any anticoagulation. Patient states that he had a bowel resection several years ago. He does not recall having any EGD or colonoscopy in the past. PAST MEDICAL HISTORY: Significant for tumor on the right arm for which he had chemotherapy. PAST SURGICAL HISTORY: Bowel resection, left arm amputation. MEDICATIONS: At home none. No known drug allergies. SOCIAL HISTORY: No smoking, no alcohol use. FAMILY HISTORY: Unremarkable. Mother had coronary artery disease. REVIEW OF SYSTEMS: CARDIOPULMONARY: No chest pain, no shortness of breath. GENITOURINARY: No dysuria, hematuria. MUSCULOSKELETAL: Unremarkable. SKIN: Unremarkable. ENDOCRINE: Unremarkable. PSYCHIATRIC: Unremarkable. NEUROLOGY: Unremarkable. ENT/VISION: Unremarkable. CONSTITUTIONAL: No recent weight loss. No fever, chills, night sweats. PHYSICAL EXAMINATION: He appears comfortable. In no apparent distress. Vital signs are stable. Blood pressure 144/85, pulse 85, temperature 97.5. HEENT: Examination unremarkable, conjunctivae are pink, sclerae nonicteric, oral cavity no lesions. NECK: No JVD or lymph node enlargement. CHEST: Clear to auscultation. HEART: Regular rate and rhythm. ABDOMEN: Soft, bowel sounds are positive, no organomegaly. EXTREMITIES: No pedal edema. SKIN: No rashes. NEURO: Alert and oriented x3. No focal deficits. LABS: WBC 7.7, hemoglobin 6.1, MCV 57, platelets 268. Iron saturation 2.2%. Serum iron, TIBC 408, ferritin 2, stool occult blood is negative. IMPRESSION: Severe symptomatic microcytic hypochromic anemia and iron indices consistent with iron- deficiency anemia, most likely related to occult gastrointestinal blood loss. The patient denies any GI symptoms. History of bowel resection in the past for unclear reasons. No prior history of EGD or colonoscopy. RECOMMENDATIONS: 1. Agree with PRBC transfusion. 2. Will proceed with EGD and colonoscopy. 3. Discussed with the patient risks, benefits and complications of the procedure and he is agreeable to it. Thank you for this consultation. PEDRO LUIS / LARY: [id number] /
[2020-04-24 14:00] VITALS: BP 162/84; PULSE 90
--- NOTE | 2020-04-24 15:10 | P.PN ---
Subjective Progress Note Date: 04/24/20 Principal diagnosis: microcytic, hypocheomic anemia In f/u today pt is awaiting endoscopy, he feels fine, denies bleeding. Objective - Vital Signs Vital signs: Vital Signs Temp 97.5 F L 04/24/20 11:53 Pulse 90 04/24/20 12:53 Resp 18 04/24/20 11:53 BP 162/84 04/24/20 12:53 Pulse Ox 97 04/24/20 12:23 Intake & Output 04/23/20 04/24/20 04/24/20 18:59 06:59 18:59 Intake Total 100 Balance 100 Intake: IV 100 Other: Voiding Method Toilet Toilet # Voids 3 5 3 # Bowel Movements 3 2 - Constitutional General appearance: Present: average body habitus, cooperative, no acute distress - EENT Eyes: Present: anicteric sclerae, EOMI ENT: Present: hearing grossly normal - Respiratory Details: resp even and unlabored - Peripheral edema leg Peripheral Edema: bilateral: None - Gastrointestinal General gastrointestinal: Present: soft - Integumentary Integumentary: Present: pale - Musculoskeletal Musculoskeletal: Present: strength equal bilaterally - Psychiatric Psychiatric: Present: A&O x's 3, appropriate affect, intact judgment & insight - Labs CBC & Chem 7: 04/24/20 06:12 04/24/20 06:12 Labs: Abnormal Lab Results - Last 24 Hours (Table) 04/22/20 04/24/20 Range/Units 12:55 06:12 Hgb 8.0 L (13.0-17.5) gm/dL Hct 30.0 L (39.0-53.0) % MCV 59.6 L (80.0-100.0) fL MCH 15.8 L (25.0-35.0) pg MCHC 26.6 L (31.0-37.0) g/dL RDW 22.6 H (11.5-15.5) % Lymphocytes # 0.9 L (1.0-4.8) k/uL Iron 9 L (65-175) ug/dL % Saturation 2.21 L (15.00-50.00) Ferritin 2.0 L (22.0-322.0) ng/mL Assessment and Plan (1) Microcytic hypochromic anemia Narrative/Plan: Severe iron deficiency. 1 dose of parenteral iron before D/C, Hematology follow-up next week. Pt agrees with the plan Pending results of Gastroenterology procedure and pathology. Current Visit: Yes Status: Acute Priority: High Code(s): D50.9 - IRON DEFICIENCY ANEMIA, UNSPECIFIED SNOMED Code(s): 38167369 (2) History of ETOH abuse Current Visit: No Status: Chronic Priority: Low Code(s): F10.11 - ALCOHOL ABUSE, IN REMISSION SNOMED Code(s): 026339497
[2020-04-26 08:58] LABS: Methylmalonic Acid 0.23 umol/L (<0.40)
== END 2020-04-24 15:38 | disposition home or self-care (01) | DRG 812 ==
LOC: SUPCPDRO 12:31 → EC 12:31 → 4SSUR 14:26
PROVIDERS: ADMIT Internal Medicine; ATTEND Internal Medicine
PROC: 30233N1 Transfusion of Nonautologous Red Blood Cells into Peripheral Vein, Percutaneous Approach (ICD-10-PCS; 2020-04-22)
PROC: 0DB78ZX Excision of Stomach, Pylorus, Via Natural or Artificial Opening Endoscopic, Diagnostic (ICD-10-PCS; 2020-04-24)
PROC: 0DB58ZX Excision of Esophagus, Via Natural or Artificial Opening Endoscopic, Diagnostic (ICD-10-PCS; 2020-04-24)
PROC: 0DJD8ZZ Inspection of Lower Intestinal Tract, Via Natural or Artificial Opening Endoscopic (ICD-10-PCS; principal; 2020-04-24 08:05)
DX: D50.9 Iron deficiency anemia, unspecified (principal); I10 Essential (primary) hypertension; K29.80 Duodenitis without bleeding; K29.60 Other gastritis without bleeding; K64.4 Residual hemorrhoidal skin tags; Z79.899 Other long term (current) drug therapy; K26.9 Duodenal ulcer, unspecified as acute or chronic, without hemorrhage or perforation; Z82.49 Family history of ischemic heart disease and other diseases of the circulatory system; Z87.891 Personal history of nicotine dependence; Z92.21 Personal history of antineoplastic chemotherapy; Z92.3 Personal history of irradiation; Z89.202 Acquired absence of left upper limb, unspecified level; Z90.49 Acquired absence of other specified parts of digestive tract; F10.11 Alcohol abuse, in remission; Z87.19 Personal history of other diseases of the digestive system; Z11.59 Encounter for screening for other viral diseases
CPT/HCPCS: 36415; 36430; 43239; 45378; 80048; 80053; 82272; 82607; 82728; 82747; 83540; 83550; 83605; 83921; 84484; 85025; 85610; 85730; 86850; 86900; 86901; 86920; 88305; 88313; 88342; 93005; 99285

== ENCOUNTER 2020-06-18 09:49 | Inpatient (IN) | payer MEDICARE, BC ==
[2020-06-18] MEDS ORDERED: SODIUM CHLORIDE 0.9% 1,000 ML IV STA (10:12)
--- NOTE | 2020-06-18 10:28 | ED ---
Abdominal Pain HPI - General Source: patient, RN notes reviewed Mode of arrival: wheelchair Limitations: no limitations <Jose Francisco Armstrong - Last Filed: 06/18/20 12:29> <Davian Johnson - Last Filed: 06/18/20 12:46> - General Chief Complaint: Abdominal Pain Stated Complaint: abd pain Time Seen by Provider: 06/18/20 10:03 - History of Present Illness Initial Comments: 70-year-old male presents emergency Department with chief complaint of abdominal pain. Patient states it started after lifting something very heavy yesterday. He states he felt a pop and pain radiating across his abdomen. He states the pain is worsening. He denies any nausea vomiting states he had some hard stools morning denies any melena hematochezia noted dysuria no hematuria. Patient states that he's had multiple abdominal surgeries. (Jose Francisco Armstrong) - Related Data Previous Rx's Medication Instructions Recorded Ferrous Sulfate [Feosol] 325 mg PO BID #60 tab 04/24/20 Pantoprazole Sodium [Protonix] 40 mg PO DAILY #30 tablet. 04/24/20 Allergies Allergy/AdvReac Type Severity Reaction Status Date / Time No Known Allergies Allergy Verified 06/18/20 09:54 Review of Systems ROS Other: All systems not noted in ROS Statement are negative. <Jose Francisco Armstrong - Last Filed: 06/18/20 12:29> ROS Other: All systems not noted in ROS Statement are negative. <Davian Johnson - Last Filed: 06/18/20 12:46> ROS Statement: Those systems with pertinent positive or pertinent negative responses have been documented in the HPI. 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 [place] Past Anesthesia/Blood Transfusion Reactions: No Reported Reaction Past Psychological History: No Psychological Hx Reported Smoking Status: Never smoker Past Alcohol Use History: None Reported Past Drug Use History: None Reported - Past Family History Father History Unknown: Yes Mother Family Medical History: Coronary Artery Disease (CAD) <Jose Francisco Armstrong - Last Filed: 06/18/20 12:29> General Exam Limitations: no limitations General appearance: alert, in no apparent distress Head exam: Present: atraumatic, normocephalic, normal inspection Respiratory exam: Present: normal lung sounds bilaterally. Absent: respiratory distress, wheezes, rales, rhonchi, stridor Cardiovascular Exam: Present: normal rhythm, tachycardia, normal heart sounds. Absent: systolic murmur, diastolic murmur, rubs, gallop, clicks GI/Abdominal exam: Present: soft, tenderness (Moderate diffuse), normal bowel sounds, other (Large old scarring noted). Absent: distended, guarding, rebound, rigid Extremities exam: Present: other (Left arm amputation) Neurological exam: Present: alert, oriented X3 Skin exam: Present: warm, dry, intact, normal color. Absent: rash <Jose Francisco Armstrong - Last Filed: 06/18/20 12:29> Course <Davian Johnson - Last Filed: 06/18/20 12:46> Vital Signs 06/18/20 06/18/20 06/18/20 09:52 10:10 12:30 Temperature 98.7 F 99.1 F Pulse Rate 119 H 120 H 98 Respiratory 18 16 14 Rate Blood Pressure 153/99 142/96 157/89 O2 Sat by Pulse 95 94 L 95 Oximetry - Reevaluation(s) Reevaluation #1: 06/18/20 12:45 PA supervision: I personally evaluate this patient did present with complaints of abdominal pain. It seemed to start yesterday after lifting something in having pain goes across his abdomen. He did have nonspecific diffuse tenderness palpation of the abdomen. Imaging studies showed evidence of a small bowel obstruction. The patient will require admission and hydration. Case is discussed with Dr. Palma (Davian Johnson) Medical Decision Making - Lab Data Result diagrams: 06/18/20 10:37 06/18/20 10:37 - EKG Data -: EKG Interpreted by Me <Jose Francisco Armstrong - Last Filed: 06/18/20 12:29> - Lab Data Result diagrams: 06/18/20 10:37 06/18/20 10:37 <Davian Johnson - Last Filed: 06/18/20 12:46> - Medical Decision Making CT shows evidence of bowel obstruction. Labs reviewed no acute abnormality. Patient be admitted to hospitalist with consult surgery. (Jose Francisco Armstrong) - Lab Data Lab Results 06/18/20 06/18/20 06/18/20 Range/Units 10:37 10:37 10:37 WBC 11.6 H (3.8-10.6) k/uL RBC 6.27 H (4.30-5.90) m/uL Hgb 16.0 D (13.0-17.5) gm/dL Hct 50.7 (39.0-53.0) % MCV 80.8 (80.0-100.0) fL MCH 25.5 (25.0-35.0) pg MCHC 31.6 (31.0-37.0) g/dL RDW 23.9 H (11.5-15.5) % Plt Count 123 L (150-450) k/uL Neutrophils % 86 % Lymphocytes % 7 % Monocytes % 5 % Eosinophils % 0 % Basophils % 0 % Neutrophils # 10.0 H (1.3-7.7) k/uL Lymphocytes # 0.9 L (1.0-4.8) k/uL Monocytes # 0.6 (0-1.0) k/uL Eosinophils # 0.0 (0-0.7) k/uL Basophils # 0.0 (0-0.2) k/uL Hypochromasia Moderate Poikilocytosis Slight Anisocytosis Moderate Microcytosis Moderate Sodium 135 L (137-145) mmol/L Potassium 4.3 (3.5-5.1) mmol/L Chloride 103 (98-107) mmol/L Carbon Dioxide 23 (22-30) mmol/L Anion Gap 9 mmol/L BUN 24 H (9-20) mg/dL Creatinine 0.87 (0.66-1.25) mg/dL Est GFR (CKD-EPI)AfAm >90 (>60 ml/min/1.73 sqM) Est GFR (CKD-EPI)NonAf 86 (>60 ml/min/1.73 sqM) Glucose 122 H (74-99) mg/dL Plasma Lactic Acid Luis (0.7-2.0) mmol/L Calcium 9.6 (8.4-10.2) mg/dL Total Bilirubin 0.5 (0.2-1.3) mg/dL AST 24 (17-59) U/L ALT 16 (4-49) U/L Alkaline Phosphatase 48 (38-126) U/L Total Protein 7.2 (6.3-8.2) g/dL Albumin 4.3 (3.5-5.0) g/dL Amylase 56 (30-110) U/L Lipase 51 (23-300) U/L Urine Color Yellow Urine Appearance Cloudy (Clear) Urine pH 6.0 (5.0-8.0) Ur Specific Elmer 1.021 (1.001-1.035) Urine Protein 1+ H (Negative) Urine Glucose (UA) Negative (Negative) Urine Ketones Negative (Negative) Urine Blood Negative (Negative) Urine Nitrite Negative (Negative) Urine Bilirubin Negative (Negative) Urine Urobilinogen <2.0 (<2.0) mg/dL Ur Leukocyte Esterase Negative (Negative) Urine RBC 7 H (0-5) /hpf Urine WBC 6 H (0-5) /hpf Ur Squamous Epith Cells <1 (0-4) /hpf Urine Bacteria Rare H (None) /hpf Hyaline Casts 1 (0-2) /lpf Urine Mucus Few H (None) /hpf 06/18/20 Range/Units 10:37 WBC (3.8-10.6) k/uL RBC (4.30-5.90) m/uL Hgb (13.0-17.5) gm/dL Hct (39.0-53.0) % MCV (80.0-100.0) fL MCH (25.0-35.0) pg MCHC (31.0-37.0) g/dL RDW (11.5-15.5) % Plt Count (150-450) k/uL Neutrophils % % Lymphocytes % % Monocytes % % Eosinophils % % Basophils % % Neutrophils # (1.3-7.7) k/uL Lymphocytes # (1.0-4.8) k/uL Monocytes # (0-1.0) k/uL Eosinophils # (0-0.7) k/uL Basophils # (0-0.2) k/uL Hypochromasia Poikilocytosis Anisocytosis Microcytosis Sodium (137-145) mmol/L Potassium (3.5-5.1) mmol/L Chloride (98-107) mmol/L Carbon Dioxide (22-30) mmol/L Anion Gap mmol/L BUN (9-20) mg/dL Creatinine (0.66-1.25) mg/dL Est GFR (CKD-EPI)AfAm (>60 ml/min/1.73 sqM) Est GFR (CKD-EPI)NonAf (>60 ml/min/1.73 sqM) Glucose (74-99) mg/dL Plasma Lactic Acid Luis 1.1 (0.7-2.0) mmol/L Calcium (8.4-10.2) mg/dL Total Bilirubin (0.2-1.3) mg/dL AST (17-59) U/L ALT (4-49) U/L Alkaline Phosphatase (38-126) U/L Total Protein (6.3-8.2) g/dL Albumin (3.5-5.0) g/dL Amylase (30-110) U/L Lipase (23-300) U/L Urine Color Urine Appearance (Clear) Urine pH (5.0-8.0) Ur Specific Elmer (1.001-1.035) Urine Protein (Negative) Urine Glucose (UA) (Negative) Urine Ketones (Negative) Urine Blood (Negative) Urine Nitrite (Negative) Urine Bilirubin (Negative) Urine Urobilinogen (<2.0) mg/dL Ur Leukocyte Esterase (Negative) Urine RBC (0-5) /hpf Urine WBC (0-5) /hpf Ur Squamous Epith Cells (0-4) /hpf Urine Bacteria (None) /hpf Hyaline Casts (0-2) /lpf Urine Mucus (None) /hpf - EKG Data EKG Comments: EKG performed at 10: 22nd tachycardia incomplete right bundle rate of 1:15 KS 192 QRS 96 QT status QTC 318/439 (Jose Francisco Armstrong) Disposition <Jose Francisco Armstrong - Last Filed: 06/18/20 12:29> <Davian Johnson - Last Filed: 06/18/20 12:46> Clinical Impression: Small bowel obstruction Disposition: ADMITTED IP TO THIS HOSP Condition: Fair
[2020-06-18 11:02] LABS: ALT 16 U/L (4-49); AST 24 U/L (17-59); African American GFR (CKD) >90 (>60 ml/min/1.73 sqM); Albumin 4.3 g/dL (3.5-5.0); Alkaline Phosphatase 48 U/L (38-126); Amylase 56 U/L (30-110); Anion Gap 9 mmol/L; Blood Urea Nitrogen 24 mg/dL (9-20); Calcium 9.6 mg/dL (8.4-10.2); Carbon Dioxide 23 mmol/L (22-30); Chloride 103 mmol/L (98-107); Glucose 122 mg/dL (74-99); Lipase 51 U/L (23-300); Non-African American GFR(CKD) 86 (>60 ml/min/1.73 sqM); Potassium 4.3 mmol/L (3.5-5.1); Sodium 135 mmol/L (137-145); Total Bilirubin 0.5 mg/dL (0.2-1.3); Total Protein 7.2 g/dL (6.3-8.2)
[2020-06-18 11:03] LABS: Anisocytosis Moderate; Basophils % (A) 0 %; Eosinophils % (A) 0 %; HCT 50.7 % (39.0-53.0); Hypochromasia Moderate; Lymphocytes # (A) 0.9 k/uL (1.0-4.8); Lymphocytes % (A) 7 %; MCH 25.5 pg (25.0-35.0); MCHC 31.6 g/dL (31.0-37.0); MCV 80.8 fL (80.0-100.0); Mean Platelet Volume 7.4; Microcytosis Moderate; Monocytes # (A) 0.6 k/uL (0-1.0); Monocytes % (A) 5 %; Neutrophils % (A) 86 %; Platelet Count 123 k/uL (150-450); Poikilocytosis Slight; RBC 6.27 m/uL (4.30-5.90); RDW 23.9 % (11.5-15.5); WBC 11.6 k/uL (3.8-10.6)
[2020-06-18 11:09] LABS: Appearance,Urine Cloudy (Clear); Bacteria,Urine Rare /hpf; Bilirubin,Urine Negative (Negative); Blood,Urine Negative (Negative); Color,Urine Yellow; Glucose,Urine (UA) Negative (Negative); Hyaline Casts,Urine 1 /lpf (0-2); Ketones,Urine Negative (Negative); Leukocyte Esterase,Urine Negative (Negative); Mucus,Urine Few /hpf; Nitrite,Urine Negative (Negative); Protein,Urine 1+ (Negative); RBC,Urine 7 /hpf (0-5); Specific Gravity,Urine 1.021 (1.001-1.035); Squamous Epithelial Cell,Urine <1 /hpf (0-4); Urobilinogen,Urine <2.0 mg/dL (<2.0); WBC,Urine 6 /hpf (0-5)
--- NOTE | 2020-06-18 12:19 | CT ---
EXAMINATION TYPE: CT abdomen pelvis w con DATE OF EXAM: 06/18/2020 COMPARISON: 01/22/2018 INDICATION: Abd pain DLP: 2434.2 mGycm, Automated exposure control for dose reduction was used. CONTRAST: 100 mL of Isovue 300. Study performed without Oral Contrast TECHNIQUE: Axial images were obtained from above the diaphragm to the pubic rami in the axial plane a t 5 mm thick sections. Reconstructed images are reviewed on the computer in the coronal plane. FINDINGS: Limited CT sections are obtained the lung bases. The lung bases are clear. CT ABDOMEN: Liver: Normal Spleen: Normal Pancreas: Normal Adrenal glands: The adrenal glands appear intact. There may be some mild inflammatory change adjacent to the left adrenal gland. Gallbladder: Normal Kidneys: No masses are evident. No hydronephrosis is present. No cysts are present. Delayed images were obtained through the kidneys, which remain unremarkable. Aorta: Vascular calcification is within the aorta. Inferior vena cava: Normal. CT PELVIS: There are dilated small bowel loops within the left midabdomen. Postsurgical changes are in the right lower quadrant. Appear to be multiple anastomoses. One of these is not distended suggesting this cou ld be an area of stenosis causing small bowel obstruction. Study is without oral contrast causing jason e limitation. Appendix: Not visualized Urinary bladder: Normal. Genitourinary structures: Prostate is minimally prominent Osseous structures: There are a few scattered sclerotic areas within the sacrum and ilium and femoral heads. Bone islands and sclerotic metastasis should be considered. Facet degenerative changes are pr esent. IMPRESSIONS: 1. Small bowel obstruction into the right lower quadrant. This may be related to the anastomoses wit h a nondilated postsurgical change evident within this region. 2. Sclerotic metastases cannot be excluded within the pelvis.
[2020-06-18] MEDS ORDERED: NALOXONE 0.4 MG/ML 1 ML VIAL IV PRN (12:33)
[2020-06-18] MEDS ORDERED: ONDANSETRON 4 MG/2 ML VIAL IVP PRN (12:33)
--- NOTE | 2020-06-18 15:47 | P.HPIM ---
History of Present Illness H&P Date: 06/18/20 Chief Complaint: Abdominal pain This is a 70-year-old male with complex past medical history noted below significant for history of partial colectomy secondary to recurrent di verticulitis many years ago that presented to the hospital with abdominal pain. Patient said that his pain started 2 days ago and is being getting progressively worse. Pain is mostly in the right lower quadrant. Patient described the pain as sharp and 8 out of 10 in severity. He denies any fevers or chills. No nausea or vomiting. He admits to decreased appetite over the last couple of days. He had a normal bowel movement yesterday. Patient was evaluated in the ER and computed tomography scan of the abdomen and pelvis showed evidence of small bowel obstruction into the right lower quadrant. Patient will be admitted to the hospital for further management. Review of Systems Review of system: 14 points review of systems were obtained and were negative except to what were mentioned in the HPI. 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 04/24/20 Rx Allergies Allergy/AdvReac Type Severity Reaction Status Date / Time No Known Allergies Allergy Verified 06/18/20 09:54 Physical Exam Vitals: Vital Signs Temp Pulse Resp BP Pulse Ox 06/18/20 14:45 101 H 18 151/95 98 06/18/20 12:30 98 14 157/89 95 06/18/20 10:10 99.1 F 120 H 16 142/96 94 L 06/18/20 09:52 98.7 F 119 H 18 153/99 95 Intake and Output 06/18/20 06/18/20 06/18/20 06:59 14:59 22:59 Other: Voiding Method Toilet Weight 87.543 kg General: The patient is awake and alert, in no distress Eye: there is normal conjunctiva bilaterally. Neck: The neck is supple, there is no JVD. Cardiovascular: Normal S1-S2, no S3-S4, no murmurs. Respiratory: Lungs clear to auscultation bilaterally Gastrointestinal: Abdomen is slightly distended with tenderness to palpation worse in the right lower quadrant. There is a large surgical darci with a prior skin grafting. Musculoskeletal: There is no pedal edema. Neurological:. Speech is normal. Skin: Skin is warm and dry Results CBC & Chem 7: 06/18/20 10:37 06/18/20 10:37 Labs: Abnormal Lab Results - Last 24 Hours (Table) 06/18/20 06/18/20 06/18/20 Range/Units 10:37 10:37 10:37 WBC 11.6 H (3.8-10.6) k/uL RBC 6.27 H (4.30-5.90) m/uL RDW 23.9 H (11.5-15.5) % Plt Count 123 L (150-450) k/uL Neutrophils # 10.0 H (1.3-7.7) k/uL Lymphocytes # 0.9 L (1.0-4.8) k/uL Sodium 135 L (137-145) mmol/L BUN 24 H (9-20) mg/dL Glucose 122 H (74-99) mg/dL Urine Protein 1+ H (Negative) Urine RBC 7 H (0-5) /hpf Urine WBC 6 H (0-5) /hpf Urine Bacteria Rare H (None) /hpf Urine Mucus Few H (None) /hpf Assessment and Plan Assessment: 1. Suspected small bowel obstruction into the right lower quadrant: Noted on computed tomography scan of the abdomen and pelvis. General surgery consulted. Keep nothing by mouth for now. IV fluid hydration with D5/half-normal saline at 100 events per hour. Zofran as needed for nausea. 2. History of partial colectomy many years ago secondary to recurrent diverticulitis 3. Questionable sclerotic metastasis within the pelvis noted on computed t omography scan, an incidental finding. I would check PSA. Consider follow-up bone scan as an outpatient. 4. History of left upper extremity amputation in 1976 5. History of iron deficiency anemia with recent EGD showing antral erosive gastritis with a nonbleeding duodenal ulcer, hemoglobin stable. No evidence of bleeding. Continue Protonix and iron supplement. 6. DVT prophylaxis with subcu heparin
[2020-06-18] MEDS: PANTOPRAZOLE 40 MG/10 ML VIAL IVP SCH (18:36)
[2020-06-18] MEDS: DEXTROSE 5%-0.45% NACL 1,000 ML IV SCH (18:36)
--- NOTE | 2020-06-18 19:35 | P.GSCN ---
History of Present Illness Consult date: 06/18/20 History of present illness: 70 yeqar old male with extensive past medical and surgical history who presented with a 3 day history of right sided abdominal pain. He states he has been having small BM and no NV. No fever/chills no recent illness. He has never had this pain before. He has a history of extensive abdominal surgery, bowel resection with ileostomy and ileostomy takedown at an outside hospital. He states he was left with an open abdomen for a while. He does not recall what this was for. 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 Arm amputation () r/t chemo [place], removed part of the colon Past Anesthesia/Blood Transfusion Reactions: No Reported Reaction Past Psychological History: No Psychological Hx Reported Smoking Status: Former smoker Past Alcohol Use History: None Reported Additional Past Alcohol Use History / Comment(s): smoked cigars years ago; has been a drinker since he was 14 years old and it has progressively gotten worse; just quit january 2018; now drinks non alcoholic beer Past Drug Use History: None Reported - Past Family History Father History Unknown: Yes Mother Family Medical History: Coronary Artery Disease (CAD) Medications and Allergies Home Medications Medication Instructions Recorded Confirmed Type Ferrous Sulfate [Feosol] 325 mg PO BID #60 tab 04/24/20 06/18/20 Rx Pantoprazole Sodium [Protonix] 40 mg PO DAILY #30 tablet. 04/24/20 06/18/20 Rx Allergies Allergy/AdvReac Type Severity Reaction Status Date / Time No Known Allergies Allergy Verified 06/18/20 09:54 Surgical - Exam Osteopathic Statement: *. No significant issues noted on an osteopathic structural exam other than those noted in the History and Physical/Consult. Vital Signs Temp Pulse Resp BP Pulse Ox 98.7 F 119 H 18 153/99 95 06/18/20 09:52 06/18/20 09:52 06/18/20 09:52 06/18/20 09:52 09/27/20 09:52 - General no distress - Neck trachea midline - Respiratory normal expansion, normal respiratory effort - Cardiovascular Rhythm: regular - Abdomen soft, minimal TTP right upper and lower quadrant. Nondistended. He has scarring consistent with skin grafting over an open abdoem with loss of domain and a transverse incision in his RLQ consistent with ileostomy. - Psychiatric oriented to time, oriented to person, oriented to place Results - Labs 06/18/20 10:37 06/18/20 10:37 Abnormal Lab Results - Last 24 Hours (Table) 06/18/20 06/18/20 06/18/20 Range/Units 10:37 10:37 10:37 WBC 11.6 H (3.8-10.6) k/uL RBC 6.27 H (4.30-5.90) m/uL RDW 23.9 H (11.5-15.5) % Plt Count 123 L (150-450) k/uL Neutrophils # 10.0 H (1.3-7.7) k/uL Lymphocytes # 0.9 L (1.0-4.8) k/uL Sodium 135 L (137-145) mmol/L BUN 24 H (9-20) mg/dL Glucose 122 H (74-99) mg/dL Urine Protein 1+ H (Negative) Urine RBC 7 H (0-5) /hpf Urine WBC 6 H (0-5) /hpf Urine Bacteria Rare H (None) /hpf Urine Mucus Few H (None) /hpf Diabetes panel 06/18/20 Range/Units 10:37 Sodium 135 L (137-145) mmol/L Potassium 4.3 (3.5-5.1) mmol/L Chloride 103 (98-107) mmol/L Carbon Dioxide 23 (22-30) mmol/L BUN 24 H (9-20) mg/dL Creatinine 0.87 (0.66-1.25) mg/dL Glucose 122 H (74-99) mg/dL Calcium 9.6 (8.4-10.2) mg/dL AST 24 (17-59) U/L ALT 16 (4-49) U/L Alkaline Phosphatase 48 (38-126) U/L Total Protein 7.2 (6.3-8.2) g/dL Albumin 4.3 (3.5-5.0) g/dL Calcium panel 06/18/20 Range/Units 10:37 Calcium 9.6 (8.4-10.2) mg/dL Albumin 4.3 (3.5-5.0) g/dL Pituitary panel 06/18/20 Range/Units 10:37 Sodium 135 L (137-145) mmol/L Potassium 4.3 (3.5-5.1) mmol/L Chloride 103 (98-107) mmol/L Carbon Dioxide 23 (22-30) mmol/L BUN 24 H (9-20) mg/dL Creatinine 0.87 (0.66-1.25) mg/dL Glucose 122 H (74-99) mg/dL Calcium 9.6 (8.4-10.2) mg/dL Adrenal panel 06/18/20 Range/Units 10:37 Sodium 135 L (137-145) mmol/L Potassium 4.3 (3.5-5.1) mmol/L Chloride 103 (98-107) mmol/L Carbon Dioxide 23 (22-30) mmol/L BUN 24 H (9-20) mg/dL Creatinine 0.87 (0.66-1.25) mg/dL Glucose 122 H (74-99) mg/dL Calcium 9.6 (8.4-10.2) mg/dL Total Bilirubin 0.5 (0.2-1.3) mg/dL AST 24 (17-59) U/L ALT 16 (4-49) U/L Alkaline Phosphatase 48 (38-126) U/L Total Protein 7.2 (6.3-8.2) g/dL Albumin 4.3 (3.5-5.0) g/dL Assessment and Plan Assessment: SBO Plan: Patient has had extensive abdominal surgery and 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 Recommend conservative therapy with NGT. Could attempt small bowel followthrough tomorrow. This was discussed with the patient. Surgery should be avoided if at all possible due to likelyhood of complications should he undergo abdominal surgery. Transfer to tertiary care center could be better option for patient if he fails conservative therapy.
[2020-06-18] MEDS: HEPARIN SODIUM,PORCINE 5,000 UNIT/ML 1 ML VIAL SQ SCH (20:30)
[2020-06-19] MEDS: DEXTROSE 5%-0.45% NACL 1,000 ML IV SCH ×2 (04:42→17:06)
[2020-06-19 06:03] LABS: Anisocytosis Moderate; HCT 46.7 % (39.0-53.0); HGB 14.5 gm/dL (13.0-17.5); Hypochromasia Marked; MCH 25.5 pg (25.0-35.0); MCHC 31.1 g/dL (31.0-37.0); Mean Platelet Volume 7.7; Microcytosis Moderate; RDW 23.6 % (11.5-15.5); WBC 6.2 k/uL (3.8-10.6)
[2020-06-19 06:33] LABS: Eosinophils # (M) 0.12 k/uL (0-0.7); Monocytes # (M) 0.68 k/uL (0-1.0); Neutrophils # (M) 4.09 k/uL (1.3-7.7); Neutrophils % (M) 66 %; Nucleated Red Blood Cells 0 /100 WBC (0-0); Total Cells Counted 100
[2020-06-19 06:34] LABS: Large Platelets Present; Platelet Count 98 k/uL (150-450)
[2020-06-19] MEDS: HEPARIN SODIUM,PORCINE 5,000 UNIT/ML 1 ML VIAL SQ SCH ×2 (08:27→19:52)
[2020-06-19] MEDS: PANTOPRAZOLE 40 MG/10 ML VIAL IVP SCH (08:27)
[2020-06-19 09:26] LABS: African American GFR (CKD) 98.5 (60.0-200.0); Anion Gap 8.9 mmol/L (4.00-12.00); BUN/Creat Ratio 27.78 Ratio (12.00-20.00); Calcium 8.6 mg/dL (8.7-10.3); Carbon Dioxide 25.1 mmol/L (21.6-31.8); Potassium 3.8 mmol/L (3.5-5.5)
--- NOTE | 2020-06-19 12:32 | P.PN ---
Subjective Progress Note Date: 06/19/20 Patient's report that his pain is a lot better today. He had NG tube inserted last night per general surgery recommendations but patient pulled it out. He said that he feels that he can have a bowel movement later on. No nausea. Objective - Vital Signs Vital signs: Vital Signs Temp 98.6 F 06/19/20 12:21 Pulse 82 06/19/20 12:21 Resp 18 06/19/20 12:21 BP 146/80 06/19/20 12:21 Pulse Ox 96 06/19/20 12:21 Intake & Output 06/18/20 06/19/20 06/19/20 18:59 06:59 18:59 Intake Total 200 1200 800 Output Total 200 200 Balance 0 1000 800 Weight 87.543 kg Intake: Intake, IV Titration 100 1200 800 Amount Dextrose 5%-0.45% NaCl 1, 1200 800 000 ml @ 100 mls/hr IV . Q10H NOY Rx#:[id number] Sodium Chloride 0.9% 1, 100 000 ml @ 999 mls/hr IV . Q1H1M STA Rx#:[id number] Oral 100 Output: Gastric Drainage 200 Urine 200 Other: Voiding Method Toilet Toilet Toilet # Voids 1 - Exam General: The patient is awake and alert, in no distress Eye: there is normal conjunctiva bilaterally. Neck: The neck is supple, there is no JVD. Cardiovascular: Normal S1-S2, no S3-S4, no murmurs. Respiratory: Lungs clear to auscultation bilaterally Gastrointestinal: Positive bowel sounds. Abdomen distended with a large surgical scar/skin graft area. No tenderness to palpation. Musculoskeletal: There is no pedal edema. Neurological:. Speech is normal. Skin: Skin is warm and dry - Labs CBC & Chem 7: 06/19/20 04:59 06/19/20 04:59 Labs: Abnormal Lab Results - Last 24 Hours (Table) 06/19/20 06/19/20 Range/Units 04:59 04:59 RDW 23.6 H (11.5-15.5) % Plt Count 98 L (150-450) k/uL BUN/Creatinine Ratio 27.78 H (12.00-20.00) Ratio Calcium 8.6 L (8.7-10.3) mg/dL Assessment and Plan Assessment: This is a 70-year-old male with past medical history noted below who presented to the emergency room with worsening abdominal pain. Patient is evaluated in the ER and currently admitted to the hospital for further management of his medical problems noted below. 1. Small bowel obstruction into the right lower quadrant: Noted on computed tomography scan of the abdomen and pelvis. General surgery consulted. NG tube placed that patient presented LAST night. Keep nothing by mouth for now. IV fluid hydration with D5/half-normal saline at 100 events per hour. Zofran as needed for nausea. Overall appears to be improving clinically. May start liquid diet later today if okay by general surgery. 2. History of partial colectomy many years ago secondary to recurrent diverticulitis 3. 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 I ordered PSA. Consider follow-up bone scan as an outpatient. 4. History of left upper extremity amputation in 1976 5. History of iron deficiency anemia with recent EGD showing antral erosive g astritis with a nonbleeding duodenal ulcer, hemoglobin stable. No evidence of bleeding. Continue Protonix and iron supplement. 6. DVT prophylaxis with subcu heparin Continue current regimen otherwise. Encouraged ambulation. Recheck lab work in the morning. Possible discharge home tomorrow.
--- NOTE | 2020-06-19 16:17 | P.PN ---
Subjective Progress Note Date: 06/19/20 Patient had a large bowel movement this morning. He also pulled his NG tube out. He is feeling much better he denies any abdominal pain he denies any nausea or vomiting Objective - Vital Signs Vital signs: Vital Signs Temp 98.6 F 06/19/20 12:21 Pulse 82 06/19/20 12:21 Resp 18 06/19/20 12:21 BP 146/80 06/19/20 12:21 Pulse Ox 96 06/19/20 12:21 Intake & Output 06/18/20 06/19/20 06/19/20 18:59 06:59 18:59 Intake Total 200 1200 800 Output Total 200 200 Balance 0 1000 800 Weight 87.543 kg Intake: Intake, IV Titration 100 1200 800 Amount Dextrose 5%-0.45% NaCl 1, 1200 800 000 ml @ 100 mls/hr IV . Q10H NOY Rx#:[id number] Sodium Chloride 0.9% 1, 100 000 ml @ 999 mls/hr IV . Q1H1M STA Rx#:[id number] Oral 100 Output: Gastric Drainage 200 Urine 200 Other: Voiding Method Toilet Toilet Toilet # Voids 1 - Constitutional General appearance: Present: cooperative - Respiratory Details: nonlabored - Cardiovascular Rhythm: regular - Gastrointestinal Gastrointestinal Comment(s): S/NT/ND - Labs CBC & Chem 7: 06/19/20 04:59 06/19/20 04:59 Labs: Abnormal Lab Results - Last 24 Hours (Table) 06/19/20 06/19/20 Range/Units 04:59 04:59 RDW 23.6 H (11.5-15.5) % Plt Count 98 L (150-450) k/uL BUN/Creatinine Ratio 27.78 H (12.00-20.00) Ratio Calcium 8.6 L (8.7-10.3) mg/dL Assessment and Plan Assessment: SBO Plan: Clinically patient is significantly improved. Advance diet to clears and advance to soft as tolerated. No plans for surgical intervention
[2020-06-19] MEDS ORDERED: ACETAMINOPHEN TAB 325 MG TAB PO PRN (19:39)
[2020-06-20] MEDS: DEXTROSE 5%-0.45% NACL 1,000 ML IV SCH (01:30)
[2020-06-20 06:38] LABS: Anisocytosis Moderate; Basophils % (A) 1 %; Eosinophils # (A) 0.3 k/uL (0-0.7); Eosinophils % (A) 7 %; HCT 47.2 % (39.0-53.0); HGB 14.3 gm/dL (13.0-17.5); Hypochromasia Moderate; Lymphocytes # (A) 0.9 k/uL (1.0-4.8); Lymphocytes % (A) 18 %; MCH 25.1 pg (25.0-35.0); MCHC 30.4 g/dL (31.0-37.0); MCV 82.5 fL (80.0-100.0); Mean Platelet Volume 7.1; Microcytosis Moderate; Monocytes # (A) 0.5 k/uL (0-1.0); Monocytes % (A) 10 %; Neutrophils # (A) 3.2 k/uL (1.3-7.7); Neutrophils % (A) 62 %; RBC 5.73 m/uL (4.30-5.90); RDW 23.9 % (11.5-15.5); WBC 5.1 k/uL (3.8-10.6)
[2020-06-20 06:42] LABS: Platelet Count 88 k/uL (150-450)
[2020-06-20] MEDS: HEPARIN SODIUM,PORCINE 5,000 UNIT/ML 1 ML VIAL SQ SCH (08:23)
[2020-06-20] MEDS: PANTOPRAZOLE 40 MG/10 ML VIAL IVP SCH (08:23)
[2020-06-20 09:07] LABS: African American GFR (CKD) 103.4 (60.0-200.0); Anion Gap 6.7 mmol/L (4.00-12.00); BUN/Creat Ratio 16.25 Ratio (12.00-20.00); Calcium 8.5 mg/dL (8.7-10.3); Carbon Dioxide 26.3 mmol/L (21.6-31.8); Magnesium 1.7 mg/dL (1.5-2.4); Non-African American GFR(CKD) 89.2 (60.0-200.0); Potassium 4.3 mmol/L (3.5-5.5)
[2020-06-20 11:52] VITALS: BP 160/89; PULSE 82; RESP 16; TEMP 98.3
--- NOTE | 2020-06-20 13:43 | P.DS ---
Providers Date of admission: 06/18/20 12:33 Expected date of discharge: 06/20/20 Attending physician: Kymberly Palma MD Consults: 06/18/20 12:34 Consult Physician Urgent Consulting Provider: Matt Witt Consult Reason/Comments: SBO Do you want consulting provider notified?: Yes Primary care physician: [facility] Course: Discharge Diagnosis: 1. Small bowel obstruction into the right lower quadrant: Noted on computed tomography scan of the abdomen and pelvis. General surgery consulted. NG tube placed that patient presented LAST night. Keep nothing by mouth for now. IV fluid hydration with D5/half-normal saline at 100 events per hour. Zofran as needed for nausea. Overall appears to be improving clinically. May start liquid diet later today if okay by general surgery. 2. History of partial colectomy many years ago secondary to recurrent diverticulitis 3. 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 I ordered PSA. Consider follow-up bone scan as an outpatient. 4. History of left upper extremity amputation in 1976 5. History of iron deficiency anemia with recent EGD showing antral erosive gastritis with a nonbleeding duodenal ulcer, hemoglobin stable. No evidence of bleeding. Continue Protonix and iron supplement. Hospital Course: This is a 70-year-old male who presented to the emergency room with worsening abdominal pain. Computed tomography scan showed small bowel obstruction. Patient was admitted for further management. Patient was being followed by general surgery. He had an NG tube placed. However he pulled out his NG tube. Patient then had a large bowel movement. Patient tolerated a soft diet. He reported that his abdominal pain had resolved. He was then deemed stable for discharge. Patient had questionable sclerotic metastasis within the pelvis on his computed tomography scan. This was an incidental finding. His PSA is pending. Patient told to follow-up with his PCP for possible bone scan and PSA results. Patient will resume all his other home meds. General examination - Alert and Oriented 3 in NAD Heart - + S1S2 no murmurs Lungs - Clear to auscultation Abdomen soft NT ND +ve BS Extremities -left upper extremity amputation [employer] - Moving all 4 extremities spontaneously Psych - Calm and cooperative A total of 33 minutes of time were spent preparing this complex discharge summary . Patient Condition at Discharge: Fair Plan - Discharge Summary Discharge Rx Participant: No New Discharge Prescriptions: Continue Ferrous Sulfate [Feosol] 325 mg PO BID #60 tab Pantoprazole Sodium [Protonix] 40 mg PO BID Discharge Medication List Ferrous Sulfate [Feosol] 325 mg PO BID #60 tab 04/24/20 [Rx] Pantoprazole Sodium [Protonix] 40 mg PO BID 06/18/20 [History] Follow up Appointment(s)/Referral(s): Keyon Olivares DO [Primary Care Provider] - 1-2 days Discharge Disposition: HOME SELF-CARE Plan of Treatment: Please discuss with your PCP about the lesions on on your pelvic bone. This was an accidental finding on your CT abdomen. Please have your PCP follow up on the PSA results.
== END 2020-06-20 16:15 | disposition home or self-care (01) | DRG 390 ==
LOC: EC 09:49 → 6NMEDSUR 12:33
PROVIDERS: ADMIT Family Medicine; ATTEND Family Medicine
PROC: 0D9670Z Drainage of Stomach with Drainage Device, Via Natural or Artificial Opening (ICD-10-PCS; principal; 2020-06-18)
DX: K56.609 Unspecified intestinal obstruction, unspecified as to partial versus complete obstruction (principal); K26.9 Duodenal ulcer, unspecified as acute or chronic, without hemorrhage or perforation; K29.60 Other gastritis without bleeding; I10 Essential (primary) hypertension; Z79.899 Other long term (current) drug therapy; Z87.891 Personal history of nicotine dependence; Z89.202 Acquired absence of left upper limb, unspecified level; Z90.49 Acquired absence of other specified parts of digestive tract; Z87.19 Personal history of other diseases of the digestive system; Z85.9 Personal history of malignant neoplasm, unspecified; Z92.21 Personal history of antineoplastic chemotherapy; Z86.2 Personal history of diseases of the blood and blood-forming organs and certain disorders involving the immune mechanism; Z98.890 Other specified postprocedural states; X50.0XXA Overexertion from strenuous movement or load, initial encounter; Z82.49 Family history of ischemic heart disease and other diseases of the circulatory system
CPT/HCPCS: 36415; 74177; 80048; 80053; 81001; 82150; 83605; 83690; 83735; 84153; 85025; 96360; 99285

== ENCOUNTER 2020-08-21 08:53 | Emergency (ER) | payer MEDICARE, BC ==
--- NOTE | 2020-08-21 09:30 | ED ---
General Adult HPI - General Chief complaint: Abdominal Pain Stated complaint: bowel problems Time Seen by Provider: 08/21/20 09:07 Source: patient Mode of arrival: ambulatory Limitations: no limitations - History of Present Illness Initial comments: 70-year-old male with a history of abdominal surgeries and recent hospitalization for small bowel obstruction presents to the emergency Department with complaints of diffuse upper abdominal pain and bloating. States his last bowel movement was 3 days ago and is worried that he is "blocked up." Patient denies any nausea, vomiting, diarrhea, shortness of breath, or dizziness. Did not taken any OTC medications in attempt to treat this complaint. Patient denies any recent rash, fever, chills, cough, chest pain, back pain, numbness, tingling, dizziness, weakness, hematuria, dysuria, urinary urgency, urinary frequency, headache, visual changes, or any other complaints. - Related Data Home Medications Medication Instructions Recorded Confirmed Omeprazole 20 mg PO DAILY 08/21/20 08/21/20 Previous Rx's Medication Instructions Recorded Ferrous Sulfate [Feosol] 325 mg PO BID #60 tab 04/24/20 Allergies Allergy/AdvReac Type Severity Reaction Status Date / Time No Known Allergies Allergy Verified 08/21/20 11:51 Review of Systems ROS Statement: Those systems with pertinent positive or pertinent negative responses have been documented in the HPI. ROS Other: All systems not noted in ROS Statement are negative. 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 [place], removed part of the colon Past Anesthesia/Blood Transfusion Reactions: No Reported Reaction Past Psychological History: No Psychological Hx Reported Smoking Status: Former smoker Past Alcohol Use History: None Reported Past Drug Use History: None Reported - Past Family History Father History Unknown: Yes Mother Family Medical History: Coronary Artery Disease (CAD) General Exam Limitations: no limitations (Well-developed, well-nourished male in no acute distress. Initial temperature 99.9F, pulse 61, respirations 17, blood pressure 177/99, pulse ox 94 percent on room air.) General appearance: alert, in no apparent distress Respiratory exam: Present: normal lung sounds bilaterally. Absent: respiratory distress, wheezes, rales, rhonchi, stridor Cardiovascular Exam: Present: regular rate, tachycardia, normal heart sounds GI/Abdominal exam: Present: distended, normal bowel sounds, other (Protuberant abdomen firm to touch. Upper abdominal tenderness upon palpation.) Back exam: Present: normal inspection. Absent: CVA tenderness (R), CVA tender ness (L) Neurological exam: Present: alert, oriented X3, CN II-XII intact Psychiatric exam: Present: normal affect, normal mood Skin exam: Present: warm, dry, intact, normal color. Absent: rash Course Vital Signs 08/21/20 08/21/20 08/21/20 08:59 12:00 13:00 Temperature 99 F 97.9 F Pulse Rate 61 110 H 76 Respiratory 17 18 Rate Blood Pressure 177/99 139/96 O2 Sat by Pulse 94 L 92 L 94 L Oximetry Medical Decision Making - Medical Decision Making 70-year-old male presents to the emergency Department with complaints of upper abdominal pain and distention. States last bowel movement was 3 days ago. Patient arrives with an elevated temperature (99.9) and tachycardia (heart rate 123). Patient was recently hospitalized for a small bowel obstruction and has a previous history of extensive abdominal surgery. Patient was given morphine, Zofran, and Tylenol along with 1 L of IV fluids. An elevated white blood cell count of 12.9 was found on lab work. Chest x-ray shows COPD, cardiomegaly, and left lower lobe atelectasis. Obstruction was not present on CT of the abdomen and pelvis. There did appear to be ileus which was present on previous exam. Despite feeling somewhat better, patient was still concerned about his lack of bowel movement therefore he was offered an enema and had good results. Prior to discharge patient's heart rate improved to 76 and he reports feeling significantly improved. Patient instructed to follow up with his primary care provider for recheck in the next 1-2 days. Return parameters were discussed with patient. He verbalizes understanding and is agreeable with this plan. - Lab Data Result diagrams: 08/21/20 09:47 08/21/20 09:47 Lab Results 08/21/20 08/21/20 08/21/20 Range/Units 09:47 09:47 09:47 WBC 12.9 H (3.8-10.6) k/uL RBC 6.04 H (4.30-5.90) m/uL Hgb 17.4 D (13.0-17.5) gm/dL Hct 51.8 (39.0-53.0) % MCV 85.8 (80.0-100.0) fL MCH 28.8 (25.0-35.0) pg MCHC 33.5 (31.0-37.0) g/dL RDW 16.2 H (11.5-15.5) % Plt Count 134 L D (150-450) k/uL MPV 10.0 Neutrophils % 87 % Lymphocytes % 6 % Monocytes % 5 % Eosinophils % 0 % Basophils % 0 % Neutrophils # 11.2 H (1.3-7.7) k/uL Lymphocytes # 0.8 L (1.0-4.8) k/uL Monocytes # 0.6 (0-1.0) k/uL Eosinophils # 0.1 (0-0.7) k/uL Basophils # 0.1 (0-0.2) k/uL Anisocytosis Slight PT 10.4 (9.0-12.0) sec INR 1.0 (<1.2) APTT 24.2 (22.0-30.0) sec Sodium 136 L (137-145) mmol/L Potassium 4.1 (3.5-5.1) mmol/L Chloride 102 (98-107) mmol/L Carbon Dioxide 27 (22-30) mmol/L Anion Gap 7 mmol/L BUN 24 H (9-20) mg/dL Creatinine 0.83 (0.66-1.25) mg/dL Est GFR (CKD-EPI)AfAm >90 (>60 ml/min/1.73 sqM) Est GFR (CKD-EPI)NonAf 88 (>60 ml/min/1.73 sqM) Glucose 132 H (74-99) mg/dL Plasma Lactic Acid Luis (0.7-2.0) mmol/L Calcium 9.5 (8.4-10.2) mg/dL Total Bilirubin 0.5 (0.2-1.3) mg/dL AST 23 (17-59) U/L ALT 17 (4-49) U/L Alkaline Phosphatase 47 (38-126) U/L Total Protein 7.4 (6.3-8.2) g/dL Albumin 4.3 (3.5-5.0) g/dL Lipase 78 (23-300) U/L 08/21/20 Range/Units 09:47 WBC (3.8-10.6) k/uL RBC (4.30-5.90) m/uL Hgb (13.0-17.5) gm/dL Hct (39.0-53.0) % MCV (80.0-100.0) fL MCH (25.0-35.0) pg MCHC (31.0-37.0) g/dL RDW (11.5-15.5) % Plt Count (150-450) k/uL MPV Neutrophils % % Lymphocytes % % Monocytes % % Eosinophils % % Basophils % % Neutrophils # (1.3-7.7) k/uL Lymphocytes # (1.0-4.8) k/uL Monocytes # (0-1.0) k/uL Eosinophils # (0-0.7) k/uL Basophils # (0-0.2) k/uL Anisocytosis PT (9.0-12.0) sec INR (<1.2) APTT (22.0-30.0) sec Sodium (137-145) mmol/L Potassium (3.5-5.1) mmol/L Chloride (98-107) mmol/L Carbon Dioxide (22-30) mmol/L Anion Gap mmol/L BUN (9-20) mg/dL Creatinine (0.66-1.25) mg/dL Est GFR (CKD-EPI)AfAm (>60 ml/min/1.73 sqM) Est GFR (CKD-EPI)NonAf (>60 ml/min/1.73 sqM) Glucose (74-99) mg/dL Plasma Lactic Acid Luis 1.3 (0.7-2.0) mmol/L Calcium (8.4-10.2) mg/dL Total Bilirubin (0.2-1.3) mg/dL AST (17-59) U/L ALT (4-49) U/L Alkaline Phosphatase (38-126) U/L Total Protein (6.3-8.2) g/dL Albumin (3.5-5.0) g/dL Lipase (23-300) U/L - EKG Data EKG shows normal: sinus rhythm Rate: tachycardia EKG Comments: EKG was obtained at 0930 and shows sinus tachycardia with occasional PVCs, and incomplete right bundle branch block, inferior infarct, and prolonged QT.. Ventricular rate 118, WI interval 190, QRS duration 100, QT/QTc 400/560. Interpretation is abnormal ECG. - Radiology Data Radiology results: report reviewed CT of the abdomen and pelvis was obtained with contrast. Report was reviewed in its entirety. Impression per Dr. Yan is prominent small bowel loop left midabdomen. Obstruction not identified. Consider ileus. Mild fecal retention. Also, some nodularity in the right paraspinal region within the lower lung base. This may hae been present previously. Monitoring is recommended. 1 view chest xray was obtained. Report was reviewed in its entirety. Impression per Dr. Yan is COPD, cardiomegaly, and left lower lobe atelectasis or early infiltrate, correlate clinically. Stable appearing exostosis of the left first rib. Disposition Clinical Impression: Abdominal pain, Ileus Disposition: HOME SELF-CARE Condition: Good Instructions (If sedation given, give patient instructions): Abdominal Pain (ED), Ileus (ED) Additional Instructions: Follow-up with your primary care physician for recheck in 1-2 days. Return to the emergency department immediately for any new, worsening, or concerning symptoms. Is patient prescribed a controlled substance at d/c from ED?: No Referrals: Keyon Olivares DO [Primary Care Provider] - 1-2 days Time of Disposition: 13:11
[2020-08-21] MEDS: SODIUM CHLORIDE 0.9% 500 ML 500 ML IV SCH (09:52)
[2020-08-21 10:10] LABS: Anisocytosis Slight; Basophils # (A) 0.1 k/uL (0-0.2); Basophils % (A) 0 %; Eosinophils # (A) 0.1 k/uL (0-0.7); Eosinophils % (A) 0 %; HCT 51.8 % (39.0-53.0); Lymphocytes # (A) 0.8 k/uL (1.0-4.8); Lymphocytes % (A) 6 %; MCH 28.8 pg (25.0-35.0); MCHC 33.5 g/dL (31.0-37.0); MCV 85.8 fL (80.0-100.0); Monocytes # (A) 0.6 k/uL (0-1.0); Monocytes % (A) 5 %; Neutrophils # (A) 11.2 k/uL (1.3-7.7); Neutrophils % (A) 87 %; RBC 6.04 m/uL (4.30-5.90); RDW 16.2 % (11.5-15.5); WBC 12.9 k/uL (3.8-10.6)
[2020-08-21] MEDS ORDERED: MORPHINE SULFATE 4 MG/ML SYRINGE IVP STA (10:11)
[2020-08-21] MEDS ORDERED: ONDANSETRON 4 MG/2 ML VIAL IVP STA (10:11)
--- NOTE | 2020-08-21 10:22 | XR ---
EXAMINATION TYPE: XR chest 1V portable DATE OF EXAM: 08/21/2020 COMPARISON: 01/21/2018 HISTORY: Fever TECHNIQUE: Single frontal view of the chest is obtained. FINDINGS: Heart is enlarged and there is left lower lobe subsegmental consolidation. Pleural-based t hickening noted with no sizable pneumothorax. Exostosis off the left first rib stable from prior exam . No overt failure. Underlying COPD suspected. Hypertrophic change of the spine. IMPRESSION: 1. COPD, cardiomegaly and left lower lobe atelectasis or early infiltrate correlate clinically. 2. Stable appearing exostosis of the left first rib
[2020-08-21 10:23] LABS: ALT 17 U/L (4-49); AST 23 U/L (17-59); African American GFR (CKD) >90 (>60 ml/min/1.73 sqM); Albumin 4.3 g/dL (3.5-5.0); Alkaline Phosphatase 47 U/L (38-126); Anion Gap 7 mmol/L; Blood Urea Nitrogen 24 mg/dL (9-20); Calcium 9.5 mg/dL (8.4-10.2); Carbon Dioxide 27 mmol/L (22-30); Chloride 102 mmol/L (98-107); Glucose 132 mg/dL (74-99); HGB 17.4 gm/dL (13.0-17.5); Lipase 78 U/L (23-300); Non-African American GFR(CKD) 88 (>60 ml/min/1.73 sqM); Platelet Count 134 k/uL (150-450); Potassium 4.1 mmol/L (3.5-5.1); Sodium 136 mmol/L (137-145); Total Bilirubin 0.5 mg/dL (0.2-1.3); Total Protein 7.4 g/dL (6.3-8.2)
[2020-08-21 10:24] LABS: Partial Thromboplastin Time 24.2 sec (22.0-30.0); Prothrombin Time 10.4 sec (9.0-12.0)
--- NOTE | 2020-08-21 11:05 | CT ---
EXAMINATION TYPE: CT abdomen pelvis w con DATE OF EXAM: 08/21/2020 COMPARISON: 06/18/2020 INDICATION: Constipation for 3 days, fever DLP: 2070.6 mGycm, Automated exposure control for dose reduction was used. CONTRAST: 100 mL of Isovue 300. Study performed without Oral Contrast TECHNIQUE: Axial images were obtained from above the diaphragm to the pubic rami in the axial plane a t 5 mm thick sections. Reconstructed images are reviewed on the computer in the coronal plane. FINDINGS: Limited CT sections are obtained the lung bases. There may be some mild thickening streak atelectasi s within the left posterior lateral lung base, present previously. Long the medial aspect paraspinal region there is some thickening of the depth 1.1-1.6 cm. This was present previously. This may have been present on the 2018 comparison. Monitoring is recommended. CT ABDOMEN: Liver: Normal Spleen: Normal Pancreas: Normal Adrenal glands: The adrenal glands are normal. Gallbladder: There is a gallstone present. Kidneys: No masses are evident. No hydronephrosis is present. No cysts are present. Delayed images were obtained through the kidneys, which remain unremarkable. Aorta: Vascular calcification is within the aorta. Inferior vena cava: Normal. CT PELVIS: There is a dilated small bowel loop within the left upper quadrant of the abdomen. A zone of transiti on is in left upper quadrant without an etiology for obstruction. Consider ileus. Study is without or al contrast causing some limitation of the bowel evaluation. Fecal debris is within the colon. Postsu rgical changes are right midabdomen ascending colon region. Appendix: Not visualized Urinary bladder: Normal. Genitourinary structures: Prostate appears normal Osseous structures: No suspicious lytic or sclerotic lesions. IMPRESSIONS: 1. Prominent small bowel loop left midabdomen. Obstruction is not identified. Consider ileus. 2. Mild fecal retention. 3. Some nodularity in the right paraspinal region within the lower lung base. This may have been pres ent previously. Monitoring is recommended.
[2020-08-21] MEDS ORDERED: ACETAMINOPHEN TAB 500 MG TAB PO STA (12:51)
[2020-08-21 13:03] VITALS: BP 139/96; PULSE 76; RESP 18; TEMP 97.9
== END 2020-08-21 13:40 | disposition home or self-care (01) ==
LOC: EC 08:53
DX: K56.7 Ileus, unspecified (principal); R00.0 Tachycardia, unspecified; D72.829 Elevated white blood cell count, unspecified; J44.9 Chronic obstructive pulmonary disease, unspecified; J98.11 Atelectasis; I51.7 Cardiomegaly; Z79.899 Other long term (current) drug therapy; Z87.891 Personal history of nicotine dependence; Z90.49 Acquired absence of other specified parts of digestive tract
CPT/HCPCS: 93005; 80053; 83605; 83690; 85025; 85610; 85730; 87040; 71045; 74177; 99284; 96374; 96375; 96361; J2270; J2405; Q9967

== ENCOUNTER 2021-03-02 08:48 | Inpatient (IN) | payer MEDICARE, BC ==
[2021-03-02 09:56] LABS: ALT 18 U/L (4-49); AST 25 U/L (17-59); African American GFR (CKD) >90 (>60 ml/min/1.73 sqM); Albumin 4.2 g/dL (3.5-5.0); Alkaline Phosphatase 54 U/L (38-126); Anion Gap 8 mmol/L; Blood Urea Nitrogen 22 mg/dL (9-20); Calcium 8.9 mg/dL (8.4-10.2); Carbon Dioxide 27 mmol/L (22-30); Chloride 103 mmol/L (98-107); Glucose 104 mg/dL (74-99); Lipase 1070 U/L (23-300); Magnesium 1.8 mg/dL (1.6-2.3); Non-African American GFR(CKD) 86 (>60 ml/min/1.73 sqM); Potassium 4.2 mmol/L (3.5-5.1); Sodium 138 mmol/L (137-145); Total Bilirubin 0.8 mg/dL (0.2-1.3)
[2021-03-02 10:02] LABS: Basophils % (A) 1 %; Eosinophils # (A) 0.2 k/uL (0-0.7); Eosinophils % (A) 3 %; HCT 48.8 % (39.0-53.0); HGB 17.2 gm/dL (13.0-17.5); Lymphocytes # (A) 0.8 k/uL (1.0-4.8); Lymphocytes % (A) 12 %; MCH 31.3 pg (25.0-35.0); MCHC 35.3 g/dL (31.0-37.0); MCV 88.8 fL (80.0-100.0); Mean Platelet Volume 9.9; Monocytes # (A) 0.4 k/uL (0-1.0); Monocytes % (A) 6 %; Neutrophils # (A) 4.7 k/uL (1.3-7.7); Neutrophils % (A) 75 %; Platelet Count 104 k/uL (150-450); RBC 5.49 m/uL (4.30-5.90); RDW 13.1 % (11.5-15.5); WBC 6.3 k/uL (3.8-10.6)
--- NOTE | 2021-03-02 10:31 | US ---
EXAMINATION TYPE: US venous doppler duplex LE RT DATE OF EXAM: 03/02/2021 10:07 AM COMPARISON: NONE CLINICAL HISTORY: pain. Right leg pain and swelling SIDE PERFORMED: Right TECHNIQUE: The lower extremity deep venous system is examined utilizing real time linear array sonog dayna with graded compression, doppler sonography and color-flow sonography. VESSELS IMAGED: Common Femoral Vein Deep Femoral Vein Greater Saphenous Vein * Femoral Vein Popliteal Vein Small Saphenous Vein * Proximal Calf Veins (* superficial vessels) Unable to visualize distal femoral vein for compression image due to leg swelling Right Leg: Appears negative for DVT IMPRESSION: 1. No diagnostic evidence of DVT as visualized.
--- NOTE | 2021-03-02 10:38 | XR ---
EXAMINATION TYPE: XR chest 2V DATE OF EXAM: 03/02/2021 COMPARISON: NONE TECHNIQUE: PA and lateral views submitted. HISTORY: Shortness of breath FINDINGS: The lungs are clear and there is no pneumothorax, pleural effusion, or focal pneumonia. Hypertrophi c and degenerative change of the spine. Hyperinflation of the lungs. Surgical clips in the abdomen. B iapical pleural thickening. Heart is enlarged. IMPRESSION: 1. COPD.
--- NOTE | 2021-03-02 10:38 | ED ---
Lower Extremity Injury HPI - General Chief Complaint: Extremity Injury, Lower Stated Complaint: swelling in feet & legs Time Seen by Provider: 03/02/21 08:57 Source: patient, family, RN notes reviewed Mode of arrival: wheelchair Limitations: no limitations - History of Present Illness Initial Comments: 70-year-old male presents emergency Department chief complaint of leg swelling. Patient is brought in with son states that he started having increase in symptoms, there are sores on his lower leg. Occasionally her some drainage. No reported fever. Patient states she's had some discomfort patient has no abdominal discomfort. Son states that he used to drink alcohol heavily. Patient denies any orthopnea or chest pain at this time the headache or dizziness patient does not go to primary care physician. Son states he does not take care of himself does not have the ability to care for himself. - Related Data Home Medications Medication Instructions Recorded Confirmed Omeprazole 20 mg PO DAILY 08/21/20 03/02/21 Allergies Allergy/AdvReac Type Severity Reaction Status Date / Time No Known Allergies Allergy Verified 03/02/21 10:44 Review of Systems ROS Statement: Those systems with pertinent positive or pertinent negative responses have been documented in the HPI. ROS Other: All systems not noted in ROS Statement are negative. 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 [place], removed part of the colon Past Anesthesia/Blood Transfusion Reactions: No Reported Reaction Past Psychological History: No Psychological Hx Reported Smoking Status: Former smoker Past Alcohol Use History: None Reported Past Drug Use History: None Reported - Past Family History Father History Unknown: Yes Mother Family Medical History: Coronary Artery Disease (CAD) General Exam Limitations: no limitations General appearance: alert, in no apparent distress Head exam: Present: atraumatic, normocephalic, normal inspection Eye exam: Present: normal appearance, PERRL, EOMI. Absent: scleral icterus, conjunctival injection, periorbital swelling Respiratory exam: Present: normal lung sounds bilaterally. Absent: respiratory distress, wheezes, rales, rhonchi, stridor Cardiovascular Exam: Present: normal rhythm, tachycardia, normal heart sounds. Absent: systolic murmur, diastolic murmur, rubs, gallop, clicks GI/Abdominal exam: Present: soft, normal bowel sounds. Absent: distended, tenderness, guarding, rebound, rigid Extremities exam: Present: other (Left arm amputation, bilateral lower extremity swelling noted right greater than left, there are some skin breakdown, ulcerations or lower extremity markings over where the sock line, pulses are palpable mild venous stasis changes) Neurological exam: Present: alert Skin exam: Present: warm, dry, intact, normal color. Absent: rash Course Vital Signs 03/02/21 03/02/21 03/02/21 08:49 09:55 10:24 Temperature 98.7 F Pulse Rate 108 H Respiratory 18 18 18 Rate Blood Pressure 199/98 199/111 O2 Sat by Pulse 92 L Oximetry Medical Decision Making - Medical Decision Making Patient has elevated lipase of 1072 minimal discomfort patient states he has not all he states he has not drank recently patient states his been drinking on alcohol drinks. Patient states is also had extensive leg swelling but she does have some evidence of cellulitis. Patient denies any fevers or chills. Case discussed with some physician Dr. Gaitan with admit the patient for home healthcare - Lab Data Result diagrams: 03/02/21 09:30 03/02/21 09:30 Lab Results 03/02/21 03/02/21 03/02/21 Range/Units 09:30 09:30 09:30 WBC 6.3 (3.8-10.6) k/uL RBC 5.49 (4.30-5.90) m/uL Hgb 17.2 (13.0-17.5) gm/dL Hct 48.8 (39.0-53.0) % MCV 88.8 (80.0-100.0) fL MCH 31.3 (25.0-35.0) pg MCHC 35.3 (31.0-37.0) g/dL RDW 13.1 (11.5-15.5) % Plt Count 104 L (150-450) k/uL MPV 9.9 Neutrophils % 75 % Lymphocytes % 12 % Monocytes % 6 % Eosinophils % 3 % Basophils % 1 % Neutrophils # 4.7 (1.3-7.7) k/uL Lymphocytes # 0.8 L (1.0-4.8) k/uL Monocytes # 0.4 (0-1.0) k/uL Eosinophils # 0.2 (0-0.7) k/uL Basophils # 0.0 (0-0.2) k/uL Sodium 138 (137-145) mmol/L Potassium 4.2 (3.5-5.1) mmol/L Chloride 103 (98-107) mmol/L Carbon Dioxide 27 (22-30) mmol/L Anion Gap 8 mmol/L BUN 22 H (9-20) mg/dL Creatinine 0.89 (0.66-1.25) mg/dL Est GFR (CKD-EPI)AfAm >90 (>60 ml/min/1.73 sqM) Est GFR (CKD-EPI)NonAf 86 (>60 ml/min/1.73 sqM) Glucose 104 H (74-99) mg/dL Calcium 8.9 (8.4-10.2) mg/dL Magnesium 1.8 (1.6-2.3) mg/dL Total Bilirubin 0.8 (0.2-1.3) mg/dL AST 25 (17-59) U/L ALT 18 (4-49) U/L Alkaline Phosphatase 54 (38-126) U/L Troponin I <0.012 (0.000-0.034) ng/mL NT-Pro-B Natriuret Pep pg/mL Total Protein 7.0 (6.3-8.2) g/dL Albumin 4.2 (3.5-5.0) g/dL Lipase 1070 H (23-300) U/L Urine Color Urine Appearance (Clear) Urine pH (5.0-8.0) Ur Specific [place] (1.001-1.035) Urine Protein (Negative) Urine Glucose (UA) (Negative) Urine Ketones (Negative) Urine Blood (Negative) Urine Nitrite (Negative) Urine Bilirubin (Negative) Urine Urobilinogen (<2.0) mg/dL Ur Leukocyte Esterase (Negative) Urine RBC (0-5) /hpf Urine WBC (0-5) /hpf Ur Squamous Epith Cells (0-4) /hpf Urine Mucus (None) /hpf Serum Alcohol mg/dL 03/02/21 03/02/21 03/02/21 Range/Units 09:30 09:30 09:30 WBC (3.8-10.6) k/uL RBC (4.30-5.90) m/uL Hgb (13.0-17.5) gm/dL Hct (39.0-53.0) % MCV (80.0-100.0) fL MCH (25.0-35.0) pg MCHC (31.0-37.0) g/dL RDW (11.5-15.5) % Plt Count (150-450) k/uL MPV Neutrophils % % Lymphocytes % % Monocytes % % Eosinophils % % Basophils % % Neutrophils # (1.3-7.7) k/uL Lymphocytes # (1.0-4.8) k/uL Monocytes # (0-1.0) k/uL Eosinophils # (0-0.7) k/uL Basophils # (0-0.2) k/uL Sodium (137-145) mmol/L Potassium (3.5-5.1) mmol/L Chloride (98-107) mmol/L Carbon Dioxide (22-30) mmol/L Anion Gap mmol/L BUN (9-20) mg/dL Creatinine (0.66-1.25) mg/dL Est GFR (CKD-EPI)AfAm (>60 ml/min/1.73 sqM) Est GFR (CKD-EPI)NonAf (>60 ml/min/1.73 sqM) Glucose (74-99) mg/dL Calcium (8.4-10.2) mg/dL Magnesium (1.6-2.3) mg/dL Total Bilirubin (0.2-1.3) mg/dL AST (17-59) U/L ALT (4-49) U/L Alkaline Phosphatase (38-126) U/L Troponin I (0.000-0.034) ng/mL NT-Pro-B Natriuret Pep 209 pg/mL Total Protein (6.3-8.2) g/dL Albumin (3.5-5.0) g/dL Lipase (23-300) U/L Urine Color Yellow Urine Appearance Cloudy (Clear) Urine pH 6.5 (5.0-8.0) Ur Specific [place] 1.022 (1.001-1.035) Urine Protein Trace H (Negative) Urine Glucose (UA) Negative (Negative) Urine Ketones Negative (Negative) Urine Blood Negative (Negative) Urine Nitrite Negative (Negative) Urine Bilirubin Negative (Negative) Urine Urobilinogen <2.0 (<2.0) mg/dL Ur Leukocyte Esterase Negative (Negative) Urine RBC 3 (0-5) /hpf Urine WBC 2 (0-5) /hpf Ur Squamous Epith Cells <1 (0-4) /hpf Urine Mucus Rare H (None) /hpf Serum Alcohol <10 mg/dL Disposition Clinical Impression: Acute pancreatitis, Peripheral edema, Cellulitis, leg Disposition: ADMITTED IP TO THIS HOSP Condition: Fair Referrals: Keyon Olivares DO [Primary Care Provider] - 1-2 days
[2021-03-02 11:37] LABS: Appearance,Urine Cloudy (Clear); Bilirubin,Urine Negative (Negative); Blood,Urine Negative (Negative); Color,Urine Yellow; Glucose,Urine (UA) Negative (Negative); Ketones,Urine Negative (Negative); Leukocyte Esterase,Urine Negative (Negative); Mucus,Urine Rare /hpf; Nitrite,Urine Negative (Negative); PH, Urine 6.5 (5.0-8.0); Protein,Urine Trace (Negative); RBC,Urine 3 /hpf (0-5); Specific Gravity,Urine 1.022 (1.001-1.035); Squamous Epithelial Cell,Urine <1 /hpf (0-4); Urobilinogen,Urine <2.0 mg/dL (<2.0); WBC,Urine 2 /hpf (0-5)
[2021-03-02] MEDS ORDERED: ONDANSETRON 4 MG/2 ML VIAL IVP PRN (12:31)
[2021-03-02] MEDS ORDERED: NALOXONE 0.4 MG/ML 1 ML VIAL IV PRN (12:31)
[2021-03-02] MEDS ORDERED: hydrALAZINE HCL 20 MG/ML 1 ML VIAL IVP STA (12:39)
[2021-03-02] MEDS: SODIUM CHLORIDE 0.9% 1,000 ML IV SCH ×4 (12:49→20:19)
--- NOTE | 2021-03-02 14:15 | P.HPIM ---
History of Present Illness H&P Date: 03/02/21 Chief Complaint: Right foot erythema This is a 70-year-old white male who reported the hospital with right foot erythema. He states that he fell on his right foot few days ago and noticed redness and erythema. Symptoms got worse last he reported to the emergency room. He denies subjective fever or chills, no hematuria dysuria hematemesis or hematochezia. He denies chest pain, no dizziness or loss of consciousness. At the time of examination patient feels okay he does not appear to be in distress, he lies abdominal pain nausea or vomiting Review of Systems 10 systems reviewed, pertinent positive negative findings as in HPI, no chest pain, no abdominal pain. 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 [place], removed part of the colon Past Anesthesia/Blood Transfusion Reactions: No Reported Reaction Past Psychological History: No Psychological Hx Reported Smoking Status: Former smoker Past Alcohol Use History: None Reported Past Drug Use History: None Reported - Past Family History Father History Unknown: Yes Mother Family Medical History: Coronary Artery Disease (CAD) Medications and Allergies Home Medications Medication Instructions Recorded Confirmed Type Omeprazole 20 mg PO DAILY 08/21/20 03/02/21 History Allergies Allergy/AdvReac Type Severity Reaction Status Date / Time No Known Allergies Allergy Verified 03/02/21 10:44 Physical Exam Vitals: Vital Signs Temp Pulse Resp BP Pulse Ox 03/02/21 12:00 94 18 190/108 95 03/02/21 11:00 18 184/105 03/02/21 10:24 18 199/111 03/02/21 09:55 18 03/02/21 08:49 98.7 F 108 H 18 199/98 92 L Intake and Output 03/01/21 03/02/21 03/02/21 22:59 06:59 14:59 Other: Weight 119.295 kg Constitutional: No acute distress, conversant, pleasant Eyes: Anicteric sclerae, moist conjunctiva, no lid-lag, PERRLA ENMT: NC/AT Neck:Supple, FROM, no masses Lungs: Clear to auscultation, Clear to percussion, Normal respiratory effort, no accessory muscle use Cardiovascular: Heart regular in rate and rhythm, No murmurs, gallops, or rubs no peripheral edema Abdominal: Soft Nontender, non distended, no guarding, scars from previous surgeries Skin: Normal temperature, tone, texture, turgor, No induration No subcutaneous nodules, No rash, lesions, No ulcers. Right foot erythema and warmth. Extremities:No digital cyanosis No clubbing, Pedal pulses intact and symmetrical . Left upper extremity. Psychiatric: Alert and oriented to person, place and time, Appropriate affect Intact judgement Neuro: Muscles Strength 5/5 in all 4 extremities, Sensation to light touch grossly present throughout, Cranial nerves II-XII grossly intact. No focal sensory deficits Results CBC & Chem 7: 03/02/21 09:30 03/02/21 09:30 Labs: Abnormal Lab Results - Last 24 Hours (Table) 03/02/21 03/02/21 03/02/21 Range/Units 09:30 09:30 09:30 Plt Count 104 L (150-450) k/uL Lymphocytes # 0.8 L (1.0-4.8) k/uL BUN 22 H (9-20) mg/dL Glucose 104 H (74-99) mg/dL Lipase 1070 H (23-300) U/L Urine Protein Trace H (Negative) Urine Mucus Rare H (None) /hpf Assessment and Plan Plan: 1. Right foot cellulitis unknown organism: Start clindamycin supportive care. Check d-dimer, obtain lower extension to Dopplers. 2. Elevated lipase, likely associated with acute hepatitis in the setting of alcohol use: Supportive care, bowel rest, pain control and antiemetics as indicated. 3. Alcohol use/dependence without evidence of withdrawal: Supportive care, CIWA protocol as needed. Thiamine, folate and multivitamins. 4. 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 Hypovolemia: Normal saline at 75 mL/h DVT prophylaxis: SCDs Disposition: Home in 2-3 days once clinically stable
--- NOTE | 2021-03-02 15:25 | US ---
EXAMINATION TYPE: US venous doppler duplex LE LT DATE OF EXAM: 03/02/2021 3:01 PM COMPARISON: Right LEV today CLINICAL HISTORY: leg swelling . Abhijit LE swelling SIDE PERFORMED: Left TECHNIQUE: The lower extremity deep venous system is examined utilizing real time linear array sonog dayna with graded compression, doppler sonography and color-flow sonography. VESSELS IMAGED: Common Femoral Vein Deep Femoral Vein Greater Saphenous Vein * Femoral Vein Popliteal Vein Small Saphenous Vein * Proximal Calf Veins (* superficial vessels) Left Leg: Negative for DVT. IMPRESSION: Grayscale, color doppler, spectral doppler imaging performed of the deep veins of the lo wer extremities. There is normal flow, compressibility, vascular waveforms.
[2021-03-02] MEDS ORDERED: hydrALAZINE HCL 20 MG/ML 1 ML VIAL IV PRN (16:34)
[2021-03-02] MEDS: CLINDAMYCIN 300 MG in DEXTROSE 5% IN WATER 50 ML IVPB SCH ×4 (16:48→20:17)
[2021-03-02] MEDS: amLODIPine 5 MG TAB PO SCH (16:52)
[2021-03-02] MEDS: THIAMINE 100 MG TAB PO SCH (16:52)
[2021-03-02] MEDS: MULTIVITAMINS, THERA 1 EACH TAB PO SCH (16:52)
[2021-03-02] MEDS: FOLIC ACID 1 MG TAB PO SCH (16:52)
[2021-03-02] MEDS ORDERED: cloNIDine HCL 0.2 MG TAB PO PRN (19:28)
[2021-03-03] MEDS: CLINDAMYCIN 300 MG in DEXTROSE 5% IN WATER 50 ML IVPB SCH ×8 (02:28→20:11)
[2021-03-03] MEDS: SODIUM CHLORIDE 0.9% 1,000 ML IV SCH ×3 (05:50→18:50)
[2021-03-03] MEDS: amLODIPine 5 MG TAB PO SCH (07:02)
[2021-03-03] MEDS: THIAMINE 100 MG TAB PO SCH (07:02)
[2021-03-03] MEDS: MULTIVITAMINS, THERA 1 EACH TAB PO SCH (07:02)
[2021-03-03] MEDS: PANTOPRAZOLE 40 MG TABLET PO SCH (07:02)
[2021-03-03] MEDS: FOLIC ACID 1 MG TAB PO SCH (07:02)
[2021-03-03] MEDS ORDERED: hydrALAZINE HCL 25 MG TAB PO PRN (10:19)
[2021-03-03] MEDS: amLODIPine 10 MG TAB PO SCH (11:01)
[2021-03-03] MEDS: lisinopriL 10 MG TAB PO SCH (11:01)
[2021-03-03 12:15] LABS: African American GFR (CKD) 116.4 (60.0-200.0); Albumin 3.7 g/dL (3.80-4.90); Albumin/Globulin Ratio 1.61 (1.60-3.17); Anion Gap 6.8 mmol/L (4.00-12.00); Calcium 7.7 mg/dL (8.7-10.3); Carbon Dioxide 23.2 mmol/L (21.6-31.8); Globulin 2.3 g/dL (1.6-3.3); Non-African American GFR(CKD) 100.4 (60.0-200.0); Potassium 3.5 mmol/L (3.5-5.5)
[2021-03-03 13:23] LABS: Basophils # (A) 0.03 X 10*3/uL (0.00-0.10); Basophils % (A) 0.4 %; Eosinophils # (A) 0.07 X 10*3/uL (0.04-0.35); Eosinophils % (A) 0.9 %; HCT 47.5 % (39.6-50.0); HGB 15.4 g/dL (13.0-17.0); Lymphocytes # (A) 0.66 X 10*3/uL (0.90-5.00); Lymphocytes % (A) 8.9 %; MCH 29.8 pg (27.0-32.0); MCHC 32.4 g/dL (32.0-37.0); MCV 92.1 fL (80.0-97.0); Mean Platelet Volume 12.6 fL (9.5-12.2); Monocytes # (A) 0.73 X 10*3/uL (0.20-1.00); Monocytes % (A) 9.8 %; Neutrophils # (A) 5.95 X 10*3/uL (1.80-7.70); Neutrophils % (A) 79.9 %; Platelet Count 97 X 10*3/uL (140-440); RBC 5.16 X 10*6/uL (4.40-5.60); RDW 13.1 % (11.5-14.5); WBC 7.45 X 10*3/uL (4.50-10.00)
--- NOTE | 2021-03-03 16:06 | P.PN ---
Subjective Progress Note Date: 03/03/21 No new complaints. Cellulitis is improving. LE dopplers negative for DVT. Pts BPs still uncontrolled. Objective - Vital Signs Vital signs: Vital Signs Temp 98 F 03/03/21 13:54 Pulse 95 03/03/21 13:54 Resp 17 03/03/21 13:54 BP 134/83 03/03/21 13:54 Pulse Ox 91 L 03/03/21 13:54 Intake & Output 03/02/21 03/03/21 03/03/21 18:59 06:59 18:59 Output Total 250 Balance -250 Weight 119.295 kg Output: Urine 250 Other: Voiding Method Urinal Urinal # Voids 4 - Exam Gen: awake, alert HEENT: normocephalic, atraumatic, good hearing acuity, moist mucous membranes Resp: good air exchange, breathing comfortably with no accessory muscle use CVS: good distal perfusion x 4,, regular rate and rhythm without murmurs GI: soft, NTTP, ND, appropriate bowel sounds : no SPT, no CVAT, hood catheter not present MSK: Bilateral pitting edema superimposed on lymphedema with woody dermatitis changes as well as onychomycosis, no clubbing, amputated left arm at the shoulder Neuro: non-focal, moving all existing extremities Psych: cooperative, euthymic mood - Labs CBC & Chem 7: 03/03/21 06:31 03/03/21 06:19 Labs: Abnormal Lab Results - Last 24 Hours (Table) 03/03/21 03/03/21 Range/Units 06:19 06:31 Plt Count 97 L (140-440) X 10*3/uL Plt Count Comment DECREASED A MPV 12.6 H (9.5-12.2) fL Lymphocytes # 0.66 L (0.90-5.00) X 10*3/uL BUN/Creatinine Ratio 25.00 H (12.00-20.00) Ratio Calcium 7.7 L (8.7-10.3) mg/dL Total Protein 6.0 L (6.2-8.2) g/dL Albumin 3.70 L (3.80-4.90) g/dL Assessment and Plan Assessment: Right foot cellulitis -Continue clindamycin -Continue to monitor clinically -Lower extremity ultrasounds were negative for DVT -Will need outpatient wound care/podiatry Hypertensive urgency -Started amlodipine, lisinopril -Hydralazine when necessary Elevated lipase -Supportive care -Pain control when necessary -Nausea control when necessary -Diet as tolerated Alcohol use/dependence -[facility] protocol -Thiamine, folate, multivitamin -Alcohol cessation counseling DVT prophylaxis with SCDs Patient is full code Anticipated discharge: Tomorrow
[2021-03-04] MEDS: CLINDAMYCIN 300 MG in DEXTROSE 5% IN WATER 50 ML IVPB SCH ×4 (02:03→06:45)
[2021-03-04] MEDS: SODIUM CHLORIDE 0.9% 1,000 ML IV SCH ×2 (02:05→02:06)
[2021-03-04 02:22] VITALS: PULSE 94; TEMP 97.8
[2021-03-04 06:44] VITALS: RESP 18
[2021-03-04] MEDS: THIAMINE 100 MG TAB PO SCH (06:44)
[2021-03-04] MEDS: PANTOPRAZOLE 40 MG TABLET PO SCH (06:44)
[2021-03-04] MEDS: lisinopriL 10 MG TAB PO SCH (06:44)
[2021-03-04] MEDS: FOLIC ACID 1 MG TAB PO SCH (06:44)
[2021-03-04] MEDS: amLODIPine 10 MG TAB PO SCH (06:45)
[2021-03-04] MEDS: MULTIVITAMINS, THERA 1 EACH TAB PO SCH (06:45)
[2021-03-04 10:28] VITALS: BP 171/79
--- NOTE | 2021-03-04 12:05 | P.DS ---
Providers Date of admission: 03/02/21 12:23 Expected date of discharge: 03/04/21 Attending physician: Gabriela Nolasco DO Primary care physician: Keyon Marshall [place] Course: HPI: This is a 70-year-old white male who reported the hospital with right foot erythema. He states that he fell on his right foot few days ago and noticed redness and erythema. Symptoms got worse last he reported to the emergency room. He denies subjective fever or chills, no hematuria dysuria hematemesis or hematochezia. He denies chest pain, no dizziness or loss of consciousness. At the time of examination patient feels okay he does not appear to be in distress, he lies abdominal pain nausea or vomiting Hospital Course: Right foot cellulitis Hypertensive urgency Elevated lipase Alcohol use/dependence Patient was started on clindamycin for right lower extremity cellulitis, which improved quickly with antibiotics. Concern for DVT given lower extremity swelling as well as with a dermatitis changes lead to lower extremity ultrasound bilaterally which was negative for blood clot. Patient was advised that he would need outpatient wound care/podiatry for ongoing foot care. Incidentally noted during admission was his high blood pressures with systolic blood pressure going as high as 190-200. Patient was started on amlodipine as well as lisinopril, and given hydralazine when necessary. With these interventions his blood pressures range between 140-160. I advised that he follow-up with his primary care doctor regarding further titration of blood pressure medication. Patient was also counseled on alcohol cessation. He was monitored with CIWA protocol, but did not warrant any Ativan. He was provided a two-week course of thiamine, folate, multivitamin on discharge. He was also prescribed 5 days of clindamycin to complete a seven-day course of antibiotics. I spent 32 minutes coordinating this complex discharge Assessment: Gen: awake, alert HEENT: normocephalic, atraumatic, good hearing acuity, moist mucous membranes Resp: good air exchange, breathing comfortably with no accessory muscle use CVS: good distal perfusion x 4,, regular rate and rhythm without murmurs GI: soft, NTTP, ND, appropriate bowel sounds : no SPT, no CVAT, hood catheter not present MSK: Bilateral pitting edema superimposed on lymphedema with woody dermatitis changes as well as onychomycosis, no clubbing, amputated left arm at the shoulder Neuro: non-focal, moving all existing extremities Psych: cooperative, euthymic mood Patient Condition at Discharge: Good Plan - Discharge Summary Discharge Rx Participant: Yes New Discharge Prescriptions: New clindamycin HCL [Cleocin] 300 mg PO Q8H #15 cap Folic Acid 1 mg PO DAILY #14 tab Multivitamins, Thera [Multivitamin (formulary)] 1 each PO DAILY #14 tab amLODIPine [Norvasc] 10 mg PO DAILY #30 tab Thiamine [Vitamin B-1] 100 mg PO DAILY #14 tab lisinopriL [Zestril] 10 mg PO DAILY #30 tab Continue Omeprazole 20 mg PO DAILY Discharge Medication List Omeprazole 20 mg PO DAILY 08/21/20 [History] Folic Acid 1 mg PO DAILY #14 tab 03/04/21 [Rx] Multivitamins, Thera [Multivitamin (formulary)] 1 each PO DAILY #14 tab 03/04/21 [Rx] Thiamine [Vitamin B-1] 100 mg PO DAILY #14 tab 03/04/21 [Rx] amLODIPine [Norvasc] 10 mg PO DAILY #30 tab 03/04/21 [Rx] clindamycin HCL [Cleocin] 300 mg PO Q8H #15 cap 03/04/21 [Rx] lisinopriL [Zestril] 10 mg PO DAILY #30 tab 03/04/21 [Rx] Follow up Appointment(s)/Referral(s): Keyon Olivares DO [Primary Care Provider] - 1-2 days Patient Instructions/Handouts: Cellulitis (DC) Discharge Disposition: HOME SELF-CARE
== END 2021-03-04 12:35 | disposition home or self-care (01) | DRG 603 ==
LOC: EC 08:48 → 4SSUR 12:23
PROVIDERS: ADMIT Internal Medicine; ATTEND Internal Medicine
DX: L03.115 Cellulitis of right lower limb (principal); K70.10 Alcoholic hepatitis without ascites; F10.20 Alcohol dependence, uncomplicated; B35.1 Tinea unguium; Z20.822 Contact with and (suspected) exposure to COVID-19; Y90.0 Blood alcohol level of less than 20 mg/100 ml; I16.0 Hypertensive urgency; E86.1 Hypovolemia; I10 Essential (primary) hypertension; I89.0 Lymphedema, not elsewhere classified; L30.9 Dermatitis, unspecified; Z87.891 Personal history of nicotine dependence; Z89.232 Acquired absence of left shoulder; Z85.89 Personal history of malignant neoplasm of other organs and systems; Z92.21 Personal history of antineoplastic chemotherapy; W19.XXXA Unspecified fall, initial encounter; Z82.49 Family history of ischemic heart disease and other diseases of the circulatory system
CPT/HCPCS: 36415; 71046; 80053; 80320; 81001; 83690; 83735; 83880; 84484; 85025; 85379; 87635; 93005; 99285

== ENCOUNTER → 2021-11-26 | Outpatient (CLI) | payer MEDICARE, BC ==
[2021-11-26 18:31] LABS: Basophils # (A) 0.05 X 10*3/uL (0.00-0.10); Basophils % (A) 0.7 %; Eosinophils # (A) 0.25 X 10*3/uL (0.04-0.35); Eosinophils % (A) 3.7 %; HCT 38.9 % (39.6-50.0); Immature Grans, Automated 0.4 %; Lymphocytes # (A) 1.31 X 10*3/uL (0.90-5.00); Lymphocytes % (A) 19.3 %; MCHC 30.8 g/dL (32.0-37.0); MCV 87.4 fL (80.0-97.0); Mean Platelet Volume 12.7 fL (9.5-12.2); Monocytes # (A) 0.66 X 10*3/uL (0.20-1.00); Monocytes % (A) 9.7 %; NRBC Per 100 WBC 0 /100 WBCS (0.0-0.0); Neutrophils # (A) 4.48 X 10*3/uL (1.80-7.70); Neutrophils % (A) 66.2 %; Platelet Count 242 X 10*3/uL (140-440); RBC 4.45 X 10*6/uL (4.40-5.60); RDW 13.2 % (11.5-14.5); WBC 6.78 X 10*3/uL (4.50-10.00)
[2021-11-26 18:37] LABS: African American GFR (CKD) 90.2 (60.0-200.0); BUN/Creat Ratio 20.77 Ratio (12.00-20.00); Calcium 9.5 mg/dL (8.7-10.3); Carbon Dioxide 22.9 mmol/L (20.0-27.5); Non-African American GFR(CKD) 77.8 (60.0-200.0); Potassium 4.4 mmol/L (3.5-5.5)
== END | disposition home or self-care (01) ==
LOC: LABPAT 10:31
PROVIDERS: ATTEND Urology
DX: Z01.812 Encounter for preprocedural laboratory examination (principal); N43.3 Hydrocele, unspecified
CPT/HCPCS: 80048; 85025

== ENCOUNTER 2021-12-03 06:13 | Day surgery (SDC) | payer MEDICARE, BC ==
--- NOTE | 2021-11-29 14:46 | P.HPIHPCON ---
History of Present Illness H&P Date: 11/29/21 Chief Complaint: left hydrocele This is a 71 yo male with hx of left hydrocele, he is symptomatic from his left hydrocele. Discussed option of left hydrocelectomy. Discussed risk and benefit of surgery. Risk of bleeding, infection, injury to the testicle and persistent symptoms. discussed also the risk of recurrence. Discussed risk from anesthesia which includes but not limited to heart attack, stroke, blood clots. He understood all the risk and agreed to proceed with left hydrocelectomy Consent for Procedure: I have explained the operation/procedure to the patient, including the risks, benefits, side effects, alternative therapies (including not receiving the proposed treatment or service), the likelihood of the patient achieving his/her goals, and potential recuperation problems for the procedure/sedation/analgesia, as well as any blood products, if indicated. I also explained to the patient the risks, benefits and side effects of the alternatives, as well as the risks related to not receiving the proposed procedure, care, treatment, or services. 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 Arm amputation ('s) r/t chemo [place], removed part of the colon Past Anesthesia/Blood Transfusion Reactions: No Reported Reaction Past Psychological History: No Psychological Hx Reported Smoking Status: Former smoker Past Alcohol Use History: None Reported Additional Past Alcohol Use History / Comment(s): smoked cigars years ago; has been a drinker since he was 14 years old and it has progressively gotten worse; just quit january 2018; now drinks non alcoholic beer Past Drug Use History: None Reported - Past Family History Father History Unknown: Yes Mother Family Medical History: Coronary Artery Disease (CAD) Medications and Allergies Home Medications Medication Instructions Recorded Confirmed Type Omeprazole 20 mg PO DAILY 08/21/20 03/02/21 History Folic Acid 1 mg PO DAILY #14 tab 03/04/21 Rx Multivitamins, Thera [Multivitamin 1 each PO DAILY #14 tab 03/04/21 Rx (formulary)] Thiamine [Vitamin B-1] 100 mg PO DAILY #14 tab 03/04/21 Rx amLODIPine [Norvasc] 10 mg PO DAILY #30 tab 03/04/21 Rx clindamycin HCL [Cleocin] 300 mg PO Q8H #15 cap 03/04/21 Rx lisinopriL [Zestril] 10 mg PO DAILY #30 tab 03/04/21 Rx Allergies Allergy/AdvReac Type Severity Reaction Status Date / Time No Known Allergies Allergy Verified 03/02/21 10:44 Surgical - Exam - General no distress, moderate pain - Eyes PERRL, normal ocular movement - ENT normal nares, normal mucosa - Respiratory normal expansion, normal respiratory effort - Psychiatric oriented to time, oriented to person Assessment and Plan Assessment: -OR for left hydrocelectomy
[2021-11-30 08:23] VITALS: BMI 387.6
[~2021-12-03 06:13] MED LIST: DEXAMETHASONE SOD PHOSPHATE 4 MG/ML 1 ML VIAL IV ONE; LACTATED RINGERS 1,000 ML IV SCH; LIDOCAINE 1% (10MG/ML) FOR IV START INTRADERMA PRN; ONDANSETRON 4 MG/2 ML VIAL IVP ONE; ceFAZolin 3 GM in SODIUM CHLORIDE 0.9% 100 ML IVPB PRN
[2021-12-03] MEDS ORDERED: HYDROmorphone 0.5 MG/0.5 ML SYRINGE IVP PRN (07:00)
[2021-12-03] MEDS ORDERED: fentaNYL (PF) 50 MCG/ML 2 ML AMP ONE (07:37)
[2021-12-03] MEDS ORDERED: PROPOFOL 10 MG/ML 20 ML VIAL IV ONE (07:37)
[2021-12-03] MEDS ORDERED: PHENYLEPHRINE-0.9% NACL SYG 1,000 MCG/10 ML SYRINGE ONE (07:37)
[2021-12-03] MEDS ORDERED: LIDOCAINE 1% INJ 10MG/ML (20 ML MDV) ONE (07:37)
[2021-12-03] MEDS ORDERED: SUCCINYLCHOLINE CHLORIDE 100 MG/5 ML SYR IV ONE (07:37)
[2021-12-03] MEDS ORDERED: BUPIVACAINE (PF) 0.5% 30 ML VIAL SQ ONE ×2 (07:58→08:27)
--- NOTE | 2021-12-03 08:38 | P.OP ---
Date of Procedure: 12/03/21 Preoperative Diagnosis: left hydrocele Postoperative Diagnosis: same Procedure(s) Performed: Left hydrocelectomy Anesthesia: MAVERICKA Surgeon: Ramone Cevallos Estimated Blood Loss (ml): 20 Pathology: other (left hydrocele sac) Condition: stable Disposition: PACU Indications for Procedure: This is a 71 yo male with hx of left hydrocele, he is symptomatic from his left hydrocele. Discussed option of left hydrocelectomy. Discussed risk and benefit of surgery. Risk of bleeding, infection, injury to the testicle and persistent symptoms. discussed also the risk of recurrence. Discussed risk from anesthesia which includes but not limited to heart attack, stroke, blood clots. He u nderstood all the risk and agreed to proceed with left hydrocelectomy Operative Findings: Large left hydrocele Description of Procedure: Patient was brought to the operating room, general anesthesia was induced. He was prepped and draped in sterile fashion and placed in a supine position. A incision was made along a left hemiscrotum. Next the dartos fascia was incised using electrocautery. Next the hydrocele sac was exposed. Of note the hydrocele sac was fairly thick. Next the hydrocele sac was delivered to the field. The incision was made in the hydrocele sac and fluid was drained from the hydrocele sac. Of note the testicle was fairly adherent to the hydrocele sac. I was able to dissect the testicle off of the hydrocele sac, and the hydrocele sac was sent to pathology. Hemostasis was achieved using electrocautery. Of note the testicle was atrophic, but no abnormality was appreciated within the testicle.. The testicle was delivered back to the field. The dartos was closed using 3-0 Vicryl, the skin was closed using 4-0 chromic area of skin glue was applied to the incision. Patient tolerated the procedure was taken to recovery in stable condition
[2021-12-03 08:47] VITALS: TEMP 97.9
[2021-12-03] MEDS ORDERED: LACTATED RINGERS 1,000 ML IV ONE (09:21)
[2021-12-03 10:01] VITALS: RESP 16
[2021-12-03 10:25] VITALS: BP 132/77; PULSE 100
== END 2021-12-03 10:36 | disposition home or self-care (01) ==
LOC: OR 06:13
PROVIDERS: ATTEND Urology
DX: N43.3 Hydrocele, unspecified (principal); I10 Essential (primary) hypertension; Z85.89 Personal history of malignant neoplasm of other organs and systems; Z92.21 Personal history of antineoplastic chemotherapy; Z87.19 Personal history of other diseases of the digestive system; Z90.49 Acquired absence of other specified parts of digestive tract; Z87.891 Personal history of nicotine dependence; Z82.49 Family history of ischemic heart disease and other diseases of the circulatory system; E78.5 Hyperlipidemia, unspecified; E66.01 Morbid (severe) obesity due to excess calories; Z68.41 Body mass index [BMI] 40.0-44.9, adult; D64.9 Anemia, unspecified; Z79.899 Other long term (current) drug therapy
CPT/HCPCS: 88302; 55040; J1100; J0690; J2405; J2001; J3010; J2370; J0330; J2704

== ENCOUNTER 2022-03-05 19:32 | Inpatient (IN) | payer MEDICARE, BC ==
[2022-03-05 20:25] LABS: Anisocytosis Slight; Basophils # (A) 0.1 k/uL (0-0.2); Basophils % (A) 1 %; Eosinophils # (A) 0.1 k/uL (0-0.7); Eosinophils % (A) 1 %; HCT 41.7 % (39.0-53.0); HGB 12.9 gm/dL (13.0-17.5); Lymphocytes # (A) 0.6 k/uL (1.0-4.8); Lymphocytes % (A) 5 %; MCH 25.8 pg (25.0-35.0); MCHC 30.9 g/dL (31.0-37.0); MCV 83.4 fL (80.0-100.0); Monocytes # (A) 0.9 k/uL (0-1.0); Monocytes % (A) 7 %; Neutrophils # (A) 10.9 k/uL (1.3-7.7); Neutrophils % (A) 85 %; Platelet Count 173 k/uL (150-450); RBC 4.99 m/uL (4.30-5.90); RDW 16.9 % (11.5-15.5); WBC 12.7 k/uL (3.8-10.6)
[2022-03-05 20:34] LABS: ALT 10 U/L (4-49); AST 16 U/L (17-59); African American GFR (CKD) >90 (>60 ml/min/1.73 sqM); Albumin 3.6 g/dL (3.5-5.0); Alkaline Phosphatase 78 U/L (38-126); Anion Gap 7 mmol/L; Blood Urea Nitrogen 14 mg/dL (9-20); Calcium 8.5 mg/dL (8.4-10.2); Carbon Dioxide 24 mmol/L (22-30); Chloride 97 mmol/L (98-107); Glucose 119 mg/dL (74-99); Non-African American GFR(CKD) 88 (>60 ml/min/1.73 sqM); Sodium 128 mmol/L (137-145); Total Bilirubin 0.5 mg/dL (0.2-1.3); Total Protein 6.6 g/dL (6.3-8.2)
[2022-03-05] MEDS ORDERED: ACETAMINOPHEN TAB 325 MG TAB PO STA (22:05)
--- NOTE | 2022-03-05 22:50 | US ---
EXAMINATION TYPE: US scrotum with doppler. Grayscale and color Doppler Duplex imaging performed of t aris scrotum. DATE OF EXAM: 03/05/2022 COMPARISON: NONE CLINICAL HISTORY: Enlarged scrotum with bleeding and discharge. Patient states he has had scrotal swe lling for 1 year and today he noticed bleeding and discharge from scrotum. EXAM MEASUREMENTS: TESTICLES: Right Testicle: 5.3 x 2.3 x 2.7 cm Left Testicle: 4.7 x 2.7 x 3.0 cm EPIDIDYMIS HEAD: Right Epididymis: Not visualized due to extreme swelling Left Epididymis: Not visualized due to extreme swelling Doppler performed to assess for testicular vascularity; good bilateral color flow and waveforms are s een. There is no evidence of testicular torsion. Presence of hydroceles: No Presence of varicoceles: No There is a large, 11 cm heterogenous area seen adjacent to the left testicle showing no vascularity. Patient denies any surgeries or trauma. Scrotal swelling x 1 year with bleeding and discharge present ing from scrotum today. Difficult exam due to excessive edema. IMPRESSION: There is a large left-sided scrotal mass that could be a tumor of the left testicle. This is contiguous with the testicle and and could be arising from the testicle. No evidence of testicular torsion.
[2022-03-05] MEDS ORDERED: NALOXONE 0.4 MG/ML 1 ML VIAL IV PRN (23:28)
--- NOTE | 2022-03-05 23:28 | ED ---
Male Urogenital HPI - General Chief complaint: Urogenital Stated complaint: Male Time Seen by Provider: 03/05/22 19:51 Source: patient, EMS Mode of arrival: EMS Limitations: no limitations - History of Present Illness Initial comments: Patient is a 71-year-old male presenting with chief complaint of scrotal bleeding. Patient has had scrotal swelling for over a year, he states today while sitting he noticed some bleeding from the underside of the scrotum. He has followed with Dr. Cevallos in the past, he was last seen in November for hydrocele. Bleeding has now slowed down, however patient is still having quite a bit of discomfort and there is some foul-smelling drainage coming from the area. He denies any fever, chills, nausea, vomiting, abdominal pain, dysuria, hematuria, urgency, frequency, hematochezia, melena. - Related Data Home Medications Medication Instructions Recorded Confirmed Acetaminophen [Tylenol 8 Hour] 650 mg PO Q4H PRN 03/05/22 03/05/22 Ferrous Sulfate [Feosol] 325 mg PO DAILY@0800 03/05/22 03/05/22 Magnesium Hydroxide [Milk of 7,200 mg PO DAILY PRN 03/05/22 03/05/22 Magnesia Concentrate] Na Phos,M-B/Na Phos,Di-Ba [Fleet 133 ml RECTAL DAILY PRN 03/05/22 03/05/22 Adult] Sertraline HCl [Zoloft] 50 mg PO HS@2100 03/05/22 03/05/22 amLODIPine [Norvasc] 10 mg PO DAILY@0800 03/05/22 03/05/22 bisacodyL [Dulcolax] 10 mg RECTAL DAILY PRN 03/05/22 03/05/22 lisinopriL [Zestril] 10 mg PO DAILY@0800 03/05/22 03/05/22 Allergies Allergy/AdvReac Type Severity Reaction Status Date / Time No Known Allergies Allergy Verified 03/05/22 21:37 Review of Systems ROS Statement: Those systems with pertinent positive or pertinent negative responses have been documented in the HPI. ROS Other: All systems not noted in ROS Statement are negative. 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 Past Anesthesia/Blood Transfusion Reactions: No Reported Reaction Past Psychological History: No Psychological Hx Reported Smoking Status: Former smoker Past Alcohol Use History: None Reported Past Drug Use History: None Reported - Past Family History Father History Unknown: Yes Mother Family Medical History: No Reported History General Exam Limitations: no limitations General appearance: alert, in no apparent distress Head exam: Present: atraumatic, normocephalic, normal inspection Eye exam: Present: normal appearance, EOMI. Absent: scleral icterus Neck exam: Present: normal inspection Respiratory exam: Present: normal lung sounds bilaterally. Absent: respiratory distress, wheezes, rales, rhonchi, stridor Cardiovascular Exam: Present: regular rate, normal rhythm, normal heart sounds. Absent: systolic murmur, diastolic murmur, rubs, gallop, clicks exam: Present: scrotal swelling, other (There is some foul-smelling serosanguineous drainage from a lengthwise incision along the scrotal skin). Absent: testicular tenderness, urethral discharge, circumcision Neurological exam: Present: alert, oriented X3, CN II-XII intact Psychiatric exam: Present: normal affect, normal mood Skin exam: Present: warm, dry, intact, normal color. Absent: rash Course Vital Signs 03/05/22 03/05/22 19:34 22:09 Temperature 99.5 F 98.4 F Pulse Rate 83 95 Respiratory 18 18 Rate Blood Pressure 119/67 141/87 O2 Sat by Pulse 91 L 95 Oximetry Medical Decision Making - Medical Decision Making Patient is a 71-year-old male presenting with chief complaint of scrotal bleeding. Patient has had significant scrotal swelling for over a year now, today while sitting he noticed bleeding. He has followed with Dr. Cevallos in the past for hydrocele. He denies any urinary symptoms, fever, chills, abdominal pain. On exam there is significant scrotal swelling, there is some induration on palpation, no tenderness. Foul-smelling serosanguineous drainage is noticed from a lengthwise incision on the underside of the scrotum. WBC of 12.7. Sodium of 128. Scrotum ultrasound is suggestive of a tumor, however this exam is limited due to significant swelling. I spoke with Dr. Cevallos who advised keeping the patient for observation so that he may see him in the morning and rule out an abscess. Patient is admitted for observation. I explained the plan to the patient, he was agreeable. I discussed this case with my attending Dr. Medellin. - Lab Data Result diagrams: 03/05/22 20:14 03/05/22 20:14 Lab Results 03/05/22 03/05/22 Range/Units 20:14 20:14 WBC 12.7 H (3.8-10.6) k/uL RBC 4.99 (4.30-5.90) m/uL Hgb 12.9 L (13.0-17.5) gm/dL Hct 41.7 (39.0-53.0) % MCV 83.4 (80.0-100.0) fL MCH 25.8 (25.0-35.0) pg MCHC 30.9 L (31.0-37.0) g/dL RDW 16.9 H (11.5-15.5) % Plt Count 173 (150-450) k/uL MPV 10.0 Neutrophils % 85 % Lymphocytes % 5 % Monocytes % 7 % Eosinophils % 1 % Basophils % 1 % Neutrophils # 10.9 H (1.3-7.7) k/uL Lymphocytes # 0.6 L (1.0-4.8) k/uL Monocytes # 0.9 (0-1.0) k/uL Eosinophils # 0.1 (0-0.7) k/uL Basophils # 0.1 (0-0.2) k/uL Anisocytosis Slight Sodium 128 L (137-145) mmol/L Potassium 4.0 (3.5-5.1) mmol/L Chloride 97 L (98-107) mmol/L Carbon Dioxide 24 (22-30) mmol/L Anion Gap 7 mmol/L BUN 14 (9-20) mg/dL Creatinine 0.81 (0.66-1.25) mg/dL Est GFR (CKD-EPI)AfAm >90 (>60 ml/min/1.73 sqM) Est GFR (CKD-EPI)NonAf 88 (>60 ml/min/1.73 sqM) Glucose 119 H (74-99) mg/dL Calcium 8.5 (8.4-10.2) mg/dL Total Bilirubin 0.5 (0.2-1.3) mg/dL AST 16 L (17-59) U/L ALT 10 (4-49) U/L Alkaline Phosphatase 78 (38-126) U/L Total Protein 6.6 (6.3-8.2) g/dL Albumin 3.6 (3.5-5.0) g/dL Disposition Clinical Impression: Scrotal mass Disposition: ADMITTED IP TO THIS [facility] Condition: Good Referrals: Aexl Hernandez DO [Primary Care Provider] - 1-2 days Time of Disposition: 23:26 Decision to Admit Reason: Admit from EC Decision Date: 03/05/22 Decision Time: 23:26
[2022-03-05] MEDS ORDERED: SODIUM CHLORIDE 0.9% 1,000 ML IV ONE (23:45)
[2022-03-06] MEDS: SODIUM CHLORIDE 0.9% 1,000 ML IV SCH ×2 (00:41→13:35)
[2022-03-06] MEDS ORDERED: HYDROmorphone 0.5 MG/0.5 ML SYRINGE IVP STA (03:37)
[2022-03-06 03:58] LABS: Appearance,Urine Clear (Clear); Bacteria,Urine Few /hpf; Bilirubin,Urine Negative (Negative); Blood,Urine Negative (Negative); Color,Urine Light Yellow; Glucose,Urine (UA) Negative (Negative); Ketones,Urine Negative (Negative); Leukocyte Esterase,Urine Moderate (Negative); Nitrite,Urine Negative (Negative); Protein,Urine Negative (Negative); Specific Gravity,Urine 1.004 (1.001-1.035); Urobilinogen,Urine <2.0 mg/dL (<2.0); WBC,Urine 12 /hpf (0-5)
[2022-03-06 07:07] LABS: Anisocytosis Slight; Basophils # (A) 0.1 k/uL (0-0.2); Basophils % (A) 1 %; Eosinophils # (A) 0.2 k/uL (0-0.7); Eosinophils % (A) 2 %; HCT 44.5 % (39.0-53.0); HGB 13.8 gm/dL (13.0-17.5); Lymphocytes # (A) 1.2 k/uL (1.0-4.8); Lymphocytes % (A) 11 %; MCH 26.2 pg (25.0-35.0); MCV 84.3 fL (80.0-100.0); Mean Platelet Volume 10.2; Monocytes # (A) 0.8 k/uL (0-1.0); Monocytes % (A) 8 %; Neutrophils # (A) 7.9 k/uL (1.3-7.7); Neutrophils % (A) 76 %; Platelet Count 168 k/uL (150-450); RBC 5.28 m/uL (4.30-5.90); RDW 16.6 % (11.5-15.5); WBC 10.5 k/uL (3.8-10.6)
[2022-03-06 07:13] LABS: ALT 11 U/L (4-49); AST 16 U/L (17-59); African American GFR (CKD) >90 (>60 ml/min/1.73 sqM); Albumin 3.7 g/dL (3.5-5.0); Alkaline Phosphatase 71 U/L (38-126); Anion Gap 9 mmol/L; Blood Urea Nitrogen 11 mg/dL (9-20); Calcium 8.7 mg/dL (8.4-10.2); Carbon Dioxide 25 mmol/L (22-30); Chloride 98 mmol/L (98-107); Glucose 103 mg/dL (74-99); Non-African American GFR(CKD) >90 (>60 ml/min/1.73 sqM); Potassium 3.9 mmol/L (3.5-5.1); Sodium 132 mmol/L (137-145); Total Bilirubin 0.6 mg/dL (0.2-1.3); Total Protein 6.9 g/dL (6.3-8.2)
--- NOTE | 2022-03-06 08:20 | P.GSHP ---
History of Present Illness H&P Date: 03/06/22 Chief Complaint: Left scrotal fluid collection This is a 71-year-old male with history of a left hydrocele, underwent a left hydrocelectomy on December 03, located by a postop hematoma. He presented to the hospital yesterday drainage from the scrotal incision with scrotal edema. He indicated that her edema is unchanged since his surgery. Denies any fevers or chills denies any abdominal pain or flank pain. On presentation he did have a slight leukocytosis of 12.8, but otherwise her vitals was within normal limits. Underwent a scrotal ultrasound that showed evidence of an 11 cm left scrotal collection, and this morning he's been having bloody-purulent drainage - Constitutional Constitutional: Denies chills, Denies fever - EENT Ears, nose, mouth and throat: Denies headache, Denies sore throat - Cardiovascular Cardiovascular: Denies chest pain, Denies shortness of breath - Respiratory Respiratory: Denies cough, Denies 7 - Gastrointestinal Gastrointestinal: Denies abdominal pain, Denies diarrhea, Denies nausea, Denies vomiting - Genitourinary (Male) Genitourinary: Reports genital pain, Reports testicular pain, Denies flank pain - Integumentary Integumentary: Denies pruritus, Denies rash - Neurological Neurological: Denies numbness, Denies weakness 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 Past Anesthesia/Blood Transfusion Reactions: No Reported Reaction Past Psychological History: No Psychological Hx Reported Smoking Status: Former smoker Past Alcohol Use History: None Reported Additional Past Alcohol Use History / Comment(s): smoked cigars years ago; has been a drinker since he was 14 years old and it has progressively gotten worse; just quit january 2018; now drinks non alcoholic beer Past Drug Use History: None Reported - Past Family History Father History Unknown: Yes Mother Family Medical History: No Reported History Medications and Allergies Home Medications Medication Instructions Recorded Confirmed Type Acetaminophen [Tylenol 8 Hour] 650 mg PO Q4H PRN 03/05/22 03/05/22 History Ferrous Sulfate [Feosol] 325 mg PO DAILY@0800 03/05/22 03/05/22 History Magnesium Hydroxide [Milk of 7,200 mg PO DAILY PRN 03/05/22 03/05/22 History Magnesia Concentrate] Na Phos,M-B/Na Phos,Di-Ba [Fleet 133 ml RECTAL DAILY PRN 03/05/22 03/05/22 History Adult] Sertraline HCl [Zoloft] 50 mg PO HS@2100 03/05/22 03/05/22 History amLODIPine [Norvasc] 10 mg PO DAILY@0800 03/05/22 03/05/22 History bisacodyL [Dulcolax] 10 mg RECTAL DAILY PRN 03/05/22 03/05/22 History lisinopriL [Zestril] 10 mg PO DAILY@0800 03/05/22 03/05/22 History Allergies Allergy/AdvReac Type Severity Reaction Status Date / Time No Known Allergies Allergy Verified 03/05/22 21:37 Surgical - Exam Vital Signs Temp Pulse Resp BP Pulse Ox 99.5 F 83 18 119/67 91 L 03/05/22 19:34 03/05/22 19:34 03/05/22 19:34 03/05/22 19:34 03/05/22 19:34 - General no distress, moderate pain - Eyes normal ocular movement, no pale - ENT normal nares, normal mucosa - Respiratory normal expansion, normal respiratory effort - Abdomen Abdomen: soft, non tender - Genitourinary Left scrotal edema and swelling, mild tenderness, incision is intact, bloody purulent drainage could be expressed. No erythema appreciated Results - Labs 03/06/22 06:24 03/06/22 06:24 Abnormal Lab Results - Last 24 Hours (Table) 03/05/22 03/05/22 03/06/22 Range/Units 20:14 20:14 03:30 WBC 12.7 H (3.8-10.6) k/uL Hgb 12.9 L (13.0-17.5) gm/dL MCHC 30.9 L (31.0-37.0) g/dL RDW 16.9 H (11.5-15.5) % Neutrophils # 10.9 H (1.3-7.7) k/uL Lymphocytes # 0.6 L (1.0-4.8) k/uL Sodium 128 L (137-145) mmol/L Chloride 97 L (98-107) mmol/L Glucose 119 H (74-99) mg/dL AST 16 L (17-59) U/L Ur Leukocyte Esterase Moderate H (Negative) Urine WBC 12 H (0-5) /hpf Urine Bacteria Few H (None) /hpf 03/06/22 03/06/22 Range/Units 06:24 06:24 WBC (3.8-10.6) k/uL Hgb (13.0-17.5) gm/dL MCHC (31.0-37.0) g/dL RDW 16.6 H (11.5-15.5) % Neutrophils # 7.9 H (1.3-7.7) k/uL Lymphocytes # (1.0-4.8) k/uL Sodium 132 L (137-145) mmol/L Chloride (98-107) mmol/L Glucose 103 H (74-99) mg/dL AST 16 L (17-59) U/L Ur Leukocyte Esterase (Negative) Urine WBC (0-5) /hpf Urine Bacteria (None) /hpf Diabetes panel 03/05/22 03/06/22 Range/Units 20:14 06:24 Sodium 128 L 132 L (137-145) mmol/L Potassium 4.0 3.9 (3.5-5.1) mmol/L Chloride 97 L 98 (98-107) mmol/L Carbon Dioxide 24 25 (22-30) mmol/L BUN 14 11 (9-20) mg/dL Creatinine 0.81 0.74 (0.66-1.25) mg/dL Glucose 119 H 103 H (74-99) mg/dL Calcium 8.5 8.7 (8.4-10.2) mg/dL AST 16 L 16 L (17-59) U/L ALT 10 11 (4-49) U/L Alkaline Phosphatase 78 71 (38-126) U/L Total Protein 6.6 6.9 (6.3-8.2) g/dL Albumin 3.6 3.7 (3.5-5.0) g/dL Calcium panel 03/05/22 03/06/22 Range/Units 20:14 06:24 Calcium 8.5 8.7 (8.4-10.2) mg/dL Albumin 3.6 3.7 (3.5-5.0) g/dL Pituitary panel 03/05/22 03/06/22 Range/Units 20:14 06:24 Sodium 128 L 132 L (137-145) mmol/L Potassium 4.0 3.9 (3.5-5.1) mmol/L Chloride 97 L 98 (98-107) mmol/L Carbon Dioxide 24 25 (22-30) mmol/L BUN 14 11 (9-20) mg/dL Creatinine 0.81 0.74 (0.66-1.25) mg/dL Glucose 119 H 103 H (74-99) mg/dL Calcium 8.5 8.7 (8.4-10.2) mg/dL Adrenal panel 03/05/22 03/06/22 Range/Units 20:14 06:24 Sodium 128 L 132 L (137-145) mmol/L Potassium 4.0 3.9 (3.5-5.1) mmol/L Chloride 97 L 98 (98-107) mmol/L Carbon Dioxide 24 25 (22-30) mmol/L BUN 14 11 (9-20) mg/dL Creatinine 0.81 0.74 (0.66-1.25) mg/dL Glucose 119 H 103 H (74-99) mg/dL Calcium 8.5 8.7 (8.4-10.2) mg/dL Total Bilirubin 0.5 0.6 (0.2-1.3) mg/dL AST 16 L 16 L (17-59) U/L ALT 10 11 (4-49) U/L Alkaline Phosphatase 78 71 (38-126) U/L Total Protein 6.6 6.9 (6.3-8.2) g/dL Albumin 3.6 3.7 (3.5-5.0) g/dL Assessment and Plan Assessment: 71-year-old male admitted to the hospital 11 cm left scrotal fluid collection, concerning for a for scrotal abscess. Discussed with him at this point recommend scrotal exploration. Discussed with him the possibility this could be abscess versus infected hematoma. Discussed with him if the testicle was involved potential of requiring an orchiectomy. Discussed this is highly unlikely to be a testicular cancer. Given his recent surgery its more consistent with a hematoma versus a abscess. Discussed the potential of bleeding and drain and potential of having an open incision. Risk and benefits of surgery were discussed in detail -Nothing by mouth past midnight OR tomorrow for left scrotal exploration possible orchiectomy
[2022-03-06] MEDS ORDERED: VANCOMYCIN IV PER PHARMACY 1 EACH MISC MISCELLANE PRN (08:22)
[2022-03-06] MEDS ORDERED: SENNOSIDES 8.6 MG TAB PO PRN (08:23)
[2022-03-06] MEDS: ACETAMINOPHEN TAB 325 MG TAB PO PRN ×3 (08:57→21:19)
[2022-03-06] MEDS: amLODIPine 10 MG TAB PO SCH (08:58)
[2022-03-06] MEDS: VANCOMYCIN 1,500 MG in SODIUM CHLORIDE 0.9% 250 ML IVPB SCH ×2 (09:40→21:20)
--- NOTE | 2022-03-06 14:23 | P.CONS ---
History of Present Illness - Reason for Consult Consult date: 03/06/22 Medical management Requesting physician: Ramone Cevallos - Chief Complaint Scrotal drainage - History of Present Illness This is a very pleasant 71-year-old patient of Dr. Hernandez. Chronic stable medical conditions include hypertension, depression, diverticulosis. On December 03 patient underwent left hydrocelectomy by Dr. cevallos. 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 Subsequently patient presented to the ER on December 17 with large left scrotal swelling with drainage. Patient now presents with increasing puslike drainage from the scrotum. It has not really recovered. Denies any fever and chills. Some local pain. Ultrasound was done in the ER. Patient be going to the OR tomorrow. Patient denies any cardiac history. Has a fair exercise tolerance. No chest pain or shortness of breath. 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 DID SMOKE IN THE REMOTE PAST. Lives alone. Family history: Reviewed, noncontributory to presentation Physical examination: VITAL SIGNS: 98, 87, 18, 108/71, 92% room air GENERAL: BMI 23.4, declined but awake, not in distress. EYES: Pupils equal. Conjunctiva normal. HEENT: External appearance of nose and ears normal, oral cavity grossly normal. NECK: JVD not raised; masses not palpable. HEART: First and second heart sounds are normal; no edema. LUNGS: Respiratory rate normal; decreased breath sounds. ABDOMEN: Soft, nontender, liver spleen not palpable, no masses palpable. See urology notes was scrotal exam PSYCH: Alert and oriented x3; mood and affect normal. MUSCULOSKELETAL:No Clubbing/cyanosis;muscles-grossly intact. Left arm amputation NEUROLOGICAL: Cranial nerves grossly intact; no facial asymmetry, power and sensation grossly intact. LYMPHATICS: No lymph nodes palpable in the axilla and neck INVESTIGATIONS, reviewed in the clinical context: White count 10.5 hemoglobin 13.8 platelets 168 sodium 132 potassium 3.9 creatinine 0.74 UA positive for tube*, WBC Scrotal ultrasound: Large left scrotal mass contiguous with the testicle. Chest x-ray film personally reviewed by me-sinus rhythm Assessment and plan: -Left scrotal abscess, likely secondary to infected hematoma . Patient had surgery with left hydrocele removed on December 03. Subsequently presented to the ER on December 17 with the swelling and discharge. Says that has continued to have drainage. Including pus. Likely infected hematoma. Patient related to the OR tomorrow. Culture will be sent. Patient currently on IV ceftriaxone and IV vancomycin. -Chronic left arm amputation -Depression not otherwise specified Zoloft 50 mg daily at bedtime -Essential hypertension Amlodipine 10 mg a day, Zestril 10 mg a day -Hyponatremia from decreased oral intake Saline. IV ceftriaxone. IV vancomycin. IV fluids. Subcu Lovenox. Care was discussed with the patient. Questions answered. Resume home medications. Thank you Dr. 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 Past Anesthesia/Blood Transfusion Reactions: No Reported Reaction Past Psychological History: No Psychological Hx Reported Smoking Status: Former smoker Past Alcohol Use History: None Reported Additional Past Alcohol Use History / Comment(s): smoked cigars years ago; has been a drinker since he was 14 years old and it has progressively gotten worse; just quit january 2018; now drinks non alcoholic beer Past Drug Use History: None Reported - Past Family History Father History Unknown: Yes Mother Family Medical History: No Reported History Medications and Allergies Home Medications Medication Instructions Recorded Confirmed Type Acetaminophen [Tylenol 8 Hour] 650 mg PO Q4H PRN 03/05/22 03/05/22 History Ferrous Sulfate [Feosol] 325 mg PO DAILY@0800 03/05/22 03/05/22 History Magnesium Hydroxide [Milk of 7,200 mg PO DAILY PRN 03/05/22 03/05/22 History Magnesia Concentrate] Na Phos,M-B/Na Phos,Di-Ba [Fleet 133 ml RECTAL DAILY PRN 03/05/22 03/05/22 History Adult] Sertraline HCl [Zoloft] 50 mg PO HS@2100 03/05/22 03/05/22 History amLODIPine [Norvasc] 10 mg PO DAILY@0800 03/05/22 03/05/22 History bisacodyL [Dulcolax] 10 mg RECTAL DAILY PRN 03/05/22 03/05/22 History lisinopriL [Zestril] 10 mg PO DAILY@0800 03/05/22 03/05/22 History Allergies Allergy/AdvReac Type Severity Reaction Status Date / Time No Known Allergies Allergy Verified 03/05/22 21:37 Physical Exam Vitals: Vital Signs Temp Pulse Pulse Resp BP BP Pulse Ox 03/06/22 07:42 97.9 F 99 18 127/81 92 L 03/06/22 00:26 98.0 F 87 18 118/71 92 L 03/05/22 22:09 98.4 F 95 18 141/87 95 03/05/22 19:34 99.5 F 83 18 119/67 91 L Intake and Output 03/05/22 03/06/22 03/06/22 22:59 06:59 14:59 Intake Total 118 Output Total 660 Balance -660 118 Intake: Oral 118 Output: Urine 660 Other: Voiding Method Urinal # Voids 1 # Bowel Movements 2 Weight 82.554 kg 82.554 kg Results CBC & Chem 7: 03/06/22 06:24 03/06/22 06:24 Labs: Abnormal Lab Results - Last 24 Hours (Table) 03/05/22 03/05/22 03/06/22 Range/Units 20:14 20:14 03:30 WBC 12.7 H (3.8-10.6) k/uL Hgb 12.9 L (13.0-17.5) gm/dL MCHC 30.9 L (31.0-37.0) g/dL RDW 16.9 H (11.5-15.5) % Neutrophils # 10.9 H (1.3-7.7) k/uL Lymphocytes # 0.6 L (1.0-4.8) k/uL Sodium 128 L (137-145) mmol/L Chloride 97 L (98-107) mmol/L Glucose 119 H (74-99) mg/dL AST 16 L (17-59) U/L Ur Leukocyte Esterase Moderate H (Negative) Urine WBC 12 H (0-5) /hpf Urine Bacteria Few H (None) /hpf 03/06/22 03/06/22 Range/Units 06:24 06:24 WBC (3.8-10.6) k/uL Hgb (13.0-17.5) gm/dL MCHC (31.0-37.0) g/dL RDW 16.6 H (11.5-15.5) % Neutrophils # 7.9 H (1.3-7.7) k/uL Lymphocytes # (1.0-4.8) k/uL Sodium 132 L (137-145) mmol/L Chloride (98-107) mmol/L Glucose 103 H (74-99) mg/dL AST 16 L (17-59) U/L Ur Leukocyte Esterase (Negative) Urine WBC (0-5) /hpf Urine Bacteria (None) /hpf
--- NOTE | 2022-03-06 14:55 | XR ---
EXAMINATION TYPE: XR chest 1V DATE OF EXAM: 03/06/2022 COMPARISON: Chest x-ray 03/02/2021 and chest x-ray 01/21/2022 HISTORY: Clearance for surgery TECHNIQUE: Single frontal view of the chest is obtained. FINDINGS: Patient is rotated. There is no evident pneumothorax. Patchy density is suspected at the l eft lung base, patient with prominent epicardial fat pad. There is asymmetric increased attenuation a t the right lung apex as compared to the left, chronic. Aorta is dense. Cardiac mediastinal silhouett e not significantly changed, upper limit of normal. IMPRESSION: Possible left lower lobe atelectasis or scarring rather than pneumonia, correlate. Essen herbert stable findings. Borderline cardiac size.
[2022-03-06] MEDS: ENOXAPARIN 40 MG/0.4 ML SYRINGE SQ SCH (15:05)
[2022-03-06] MEDS: SERTRALINE 50 MG TAB PO SCH (21:20)
[2022-03-07] MEDS: SODIUM CHLORIDE 0.9% 1,000 ML IV SCH ×2 (02:25→13:04)
[2022-03-07] MEDS: amLODIPine 10 MG TAB PO SCH (07:30)
[2022-03-07] MEDS: ENOXAPARIN 40 MG/0.4 ML SYRINGE SQ SCH (07:30)
[2022-03-07] MEDS ORDERED: IV FLUID CONTINUATION 100 ML IV ONE (09:07)
[2022-03-07] MEDS ORDERED: ONDANSETRON 4 MG/2 ML VIAL ONE (09:17)
[2022-03-07] MEDS ORDERED: ONDANSETRON 4 MG/2 ML VIAL IVP ONE (09:21)
[2022-03-07] MEDS ORDERED: PROPOFOL 10 MG/ML 20 ML VIAL IV ONE (10:50)
[2022-03-07] MEDS ORDERED: MIDAZOLAM 2 MG/2 ML VIAL ONE (10:50)
[2022-03-07] MEDS ORDERED: HYDROmorphone (PF) 1 MG/ML ONE (10:50)
[2022-03-07] MEDS ORDERED: SUCCINYLCHOLINE CHLORIDE 100 MG/5 ML SYR IV ONE (10:50)
[2022-03-07] MEDS ORDERED: fentaNYL (PF) 50 MCG/ML 2 ML AMP ONE (10:50)
[2022-03-07] MEDS ORDERED: LIDOCAINE 2% INJ 20 MG/ML (2 ML VIAL) ONE (10:50)
[2022-03-07] MEDS ORDERED: BUPIVACAINE (PF) 0.5% 30 ML VIAL SQ ONE ×2 (11:18)
[2022-03-07] MEDS ORDERED: HYDROmorphone 0.5 MG/0.5 ML SYRINGE IVP ONE (12:00)
--- NOTE | 2022-03-07 12:13 | P.PN ---
Subjective Progress Note Date: 03/07/22 No acute overnight events, still having drainage per scrotum Objective - Vital Signs Vital signs: Vital Signs Temp 98.1 F 03/07/22 09:10 Pulse 109 H 03/07/22 11:54 Resp 16 03/07/22 11:54 BP 134/74 03/07/22 11:54 Pulse Ox 96 03/07/22 11:54 FiO2 Intake & Output 03/06/22 03/07/22 03/07/22 18:59 06:59 18:59 Intake Total 118 800 Output Total 20 Balance 118 780 Intake: IV 800 Oral 118 Output: Estimated Blood Loss 20 Other: Voiding Method Urinal # Voids 1 4 # Bowel Movements 1 - Constitutional General appearance: Present: no acute distress - Gastrointestinal General gastrointestinal: Present: soft. Absent: distended - Genitourinary Genitourinary Comment(s): Left scrotal pain, purulent bloody drainage per scrotum - Psychiatric Psychiatric: Present: A&O x's 3 - Labs CBC & Chem 7: 03/06/22 06:24 03/06/22 06:24 Labs: Microbiology - Last 24 Hours (Table) 03/06/22 14:15 Gram Stain - Preliminary Other - Other Wound Culture - Preliminary 03/06/22 03:30 Urine Culture - Preliminary Urine,Voided Assessment and Plan Assessment: 71-year-old male admitted to the hospital 11 cm left scrotal fluid collection, concerning for a for scrotal abscess. Discussed with him at this point recommend scrotal exploration. Discussed with him the possibility this could be abscess versus infected hematoma. Discussed with him if the testicle was involved potential of requiring an orchiectomy. Discussed this is highly unlikely to be a testicular cancer. Given his recent surgery its more consistent with a hematoma versus a abscess. Discussed the potential of bleeding and drain and potential of having an open incision. Risk and benefits of surgery were discussed in detail -Nothing by mouth today OR for left scrotal exploration possible orchiectomy
[2022-03-07] MEDS ORDERED: SODIUM CHLORIDE 0.9% 1,000 ML IV ONE (12:18)
--- NOTE | 2022-03-07 12:42 | P.OP ---
Date of Procedure: 03/07/22 Preoperative Diagnosis: Scrotal abscess Postoperative Diagnosis: Same Procedure(s) Performed: Left scrotal exploration, incision and drainage of scrotal abscess Anesthesia: GETA Estimated Blood Loss (ml): 25 Pathology: other (Left scrotal wound culture) Condition: stable Disposition: PACU Indications for Procedure: 71-year-old male admitted to the hospital 11 cm left scrotal fluid collection, concerning for a for scrotal abscess. Discussed with him at this point recommend scrotal exploration. Discussed with him the possibility this could be abscess versus infected hematoma. Discussed with him if the testicle was involved potential of requiring an orchiectomy. Discussed this is highly unlikely to be a testicular cancer. Given his recent surgery its more consistent with a hematoma versus a abscess. Discussed the potential of bleeding and drain and potential of having an open incision. Risk and benefits of surgery were discussed in detail Operative Findings: Large scrotal abscess, Description of Procedure: Patient brought to the operating room, general anesthesia was induced. He was prepped and draped in sterile fashion and placed in a supine position. Next using a scalpel an incision was made along the left hemiscrotum using the previous hydrocele incision. Next the dartos was incised using cautery at this point a large abscess cavity was encountered, and approximately 100 mL of purulent drainage was obtained, wound cultures were obtained. Additionally the wound cavity was thoroughly irrigated using saline. The testicle could be palpated, and it appeared viable. But of note the testicle was fixed to the left scrotal wall. Given the viability of the testicle decision was made not to proceed with an orchiectomy. At this point a counter incision was made along the inferior portion of the scrotum, and a [place] was placed through the incision and through the counterincision. This was secured to the skin using 2- 0 silk. Next the wound was packed using Kerlix. The lateral edge of the incision was loosely approximated using 2-0 silk. Patient tolerated procedure well and was taken to recovery in stable condition
[2022-03-07] MEDS: LACTATED RINGERS 1,000 ML IV SCH (13:04)
[2022-03-07] MEDS: VANCOMYCIN 1,500 MG in SODIUM CHLORIDE 0.9% 250 ML IVPB SCH ×2 (13:05→21:02)
[2022-03-07] MEDS: ACETAMINOPHEN TAB 325 MG TAB PO PRN ×2 (14:51→20:58)
--- NOTE | 2022-03-07 17:11 | P.PN ---
Progress Note - Text Progress Note Date: 03/07/22 - Chief Complaint Scrotal drainage Hospital course This is a very pleasant 71-year-old patient of Dr. Hernandez. Chronic stable medical conditions include hypertension, depression, diverticulosis. On December 03 patient underwent left hydrocelectomy by Dr. ortega. 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 Subsequently patient presented to the ER on December 17 with large left scrotal swelling with drainage. Patient now presents with increasing puslike drainage from the scrotum. It has not really recovered. Denies any fever and chills. Some local pain. Ultrasound was done in the ER. Patient be going to the OR tomorrow. Patient denies any cardiac history. Has a fair exercise tolerance. No chest pain or shortness of breath. March 07: Patient taken to the OR today. Large abscess was drained. Left t esticle is preserved. Valente drain. Postprocedure patient rather tired. On IV ceftriaxone and vancomycin. Initial cultures from admission showing gram- negative bacilli Active Medications Acetaminophen (Acetaminophen Tab 325 Mg Tab) 650 mg PO Q6HR PRN PRN Reason: Mild Pain or Fever > 100.5 Last Admin: 03/07/22 14:51 Dose: 650 mg Amlodipine Besylate (Amlodipine 10 Mg Tab) 10 mg PO DAILY [facility] Last Admin: 03/07/22 07:30 Dose: 10 mg Enoxaparin Sodium (Enoxaparin 40 Mg/0.4 Ml Syringe) 40 mg SQ DAILY [facility] Last Admin: 03/07/22 07:30 Dose: 40 mg Sodium Chloride (Saline 0.9%) 1,000 mls @ 75 mls/hr IV .[id number] [facility] Last Admin: 03/07/22 13:04 Dose: 75 mls/hr Ceftriaxone Sodium 1 gm/ (Sodium Chloride) 50 mls @ 100 mls/hr IVPB Q24HR [facility]; Protocol Last Admin: 03/07/22 07:31 Dose: 100 mls/hr Vancomycin HCl 1,500 mg/ (Sodium Chloride) 250 mls @ 125 mls/hr IVPB Q12H [facility] Last Admin: 03/07/22 13:05 Dose: 125 mls/hr Lactated Ringer's (Lactated Ringers) 1,000 mls @ 20 mls/hr IV .Q24H [facility] Last Admin: 03/07/22 13:04 Dose: Not Given Miscellaneous Information (Vancomycin Trough Due 1 Each Misc) 0 each MISCELLANE DIRECTED ONE Stop: 03/08/22 09:01 Naloxone HCl (Naloxone 0.4 Mg/Ml 1 Ml Vial) 0.2 mg IV Q2M PRN PRN Reason: Opioid Reversal Senna (Sennosides 8.6 Mg Tab) 8.6 mg PO BID PRN PRN Reason: Constipation Last Admin: 03/06/22 08:58 Dose: 8.6 mg Sertraline HCl (Sertraline 50 Mg Tab) 50 mg PO HS@2100 [facility] Last Admin: 03/06/22 21:20 Dose: 50 mg Past medical history to include: Hypertension, diverticulitis, 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 DID SMOKE IN THE REMOTE PAST. Lives alone. Family history: Reviewed, noncontributory to presentation Physical examination: VITAL SIGNS: 97, 107, 18, 119-70, 92% room air GENERAL: Laying in bed rather tired. EYES: Pupils equal. Conjunctiva normal. HEENT: External appearance of nose and ears normal, oral cavity grossly normal. NECK: JVD not raised; masses not palpable. HEART: First and second heart sounds are normal; no edema. LUNGS: Respiratory rate normal; decreased breath sounds. ABDOMEN: Soft, nontender, liver spleen not palpable, no masses palpable. Dressing over the scrotum with support PSYCH: Lethargic postop MUSCULOSKELETAL:No Clubbing/cyanosis;muscles-grossly intact. Left arm amputation INVESTIGATIONS, reviewed in the clinical context: White count 10.5 hemoglobin 13.8 platelets 168 sodium 132 potassium 3.9 creatinine 0.74 UA positive for tube*, WBC Scrotal ultrasound: Large left scrotal mass contiguous with the testicle. Chest x-ray film personally reviewed by me-sinus rhythm Assessment and plan: -Left scrotal abscess, likely secondary to infected hematoma: Slow to respond March 07 large left scrotal abscesses drained. Valente in place. Left testicle present. -Chronic left arm amputation -Depression not otherwise specified Zoloft 50 mg daily at bedtime -Essential hypertension Amlodipine 10 mg a day, Zestril 10 mg a day -Hyponatremia from decreased oral intake Saline. IV ceftriaxone. IV vancomycin. IV fluids. Subcu Lovenox. Valente drain. Await culture results. Thank you Dr. ortega
[2022-03-07] MEDS: SERTRALINE 50 MG TAB PO SCH (20:26)
[2022-03-08] MEDS: SODIUM CHLORIDE 0.9% 1,000 ML IV SCH (04:20)
[2022-03-08] MEDS ORDERED: VANCOMYCIN TROUGH DUE 1 EACH MISC MISCELLANE ONE (09:00)
[2022-03-08 09:11] LABS: African American GFR (CKD) >90 (>60 ml/min/1.73 sqM); Anion Gap 8 mmol/L; Blood Urea Nitrogen 11 mg/dL (9-20); Calcium 8.3 mg/dL (8.4-10.2); Carbon Dioxide 25 mmol/L (22-30); Chloride 101 mmol/L (98-107); Glucose 119 mg/dL (74-99); Non-African American GFR(CKD) >90 (>60 ml/min/1.73 sqM); Potassium 4.3 mmol/L (3.5-5.1); Sodium 134 mmol/L (137-145)
[2022-03-08] MEDS: ENOXAPARIN 40 MG/0.4 ML SYRINGE SQ SCH (09:13)
[2022-03-08] MEDS: amLODIPine 10 MG TAB PO SCH (09:13)
[2022-03-08] MEDS: VANCOMYCIN 1,500 MG in SODIUM CHLORIDE 0.9% 250 ML IVPB SCH (11:59)
[2022-03-08] MEDS: ACETAMINOPHEN TAB 325 MG TAB PO PRN (12:58)
[2022-03-08 13:12] VITALS: BP 134/73; PULSE 93; RESP 18; TEMP 98.4
[2022-03-08] MEDS: LACTATED RINGERS 1,000 ML IV SCH (13:39)
--- NOTE | 2022-03-08 16:04 | P.DS ---
Providers Date of admission: 03/07/22 11:54 Attending physician: Ramone Cevallos MD Consults: 03/05/22 23:28 Consult Physician Urgent Consulting Provider: Jose Bernstein Consult Reason/Comments: medical management Do you want consulting provider notified?: Yes Primary care physician: [facility] Course: This is a 71 yo male admitted with left sided scrotal abscess, he underwent left scrotal exploration and incision and drainage of a scrotal abscess on March 07. Please see op note dated March 07 for surgery details. He had an uneventful hospital course. He was discharged home on postoperative day #1 with Bactrim. Of note a Valente was maintained in his incision. At time of discharge she was tolerating a diet, pain was controlled. His incision was clean Patient Condition at Discharge: Good Plan - Discharge Summary New Discharge Prescriptions: New Sulfamethox-Tmp 800-160Mg [Bactrim DS 800-160 mg] 1 tab PO Q12HR #14 tab No Action bisacodyL [Dulcolax] 10 mg RECTAL DAILY PRN PRN Reason: Constipation Acetaminophen [Tylenol 8 Hour] 650 mg PO Q4H PRN PRN Reason: Pain Or Fever > 100.5 amLODIPine [Norvasc] 10 mg PO DAILY@0800 Ferrous Sulfate [Feosol] 325 mg PO DAILY@0800 Magnesium Hydroxide [Milk of Magnesia Concentrate] 7,200 mg PO DAILY PRN PRN Reason: Constipation Na Phos,M-B/Na Phos,Di-Ba [Fleet Adult] 133 ml RECTAL DAILY PRN PRN Reason: Constipation lisinopriL [Zestril] 10 mg PO DAILY@0800 Sertraline HCl [Zoloft] 50 mg PO HS@2100 Discharge Medication List Acetaminophen [Tylenol 8 Hour] 650 mg PO Q4H PRN 03/05/22 [History] Ferrous Sulfate [Feosol] 325 mg PO DAILY@0800 03/05/22 [History] Magnesium Hydroxide [Milk of Magnesia Concentrate] 7,200 mg PO DAILY PRN 03/05/22 [History] Na Phos,M-B/Na Phos,Di-Ba [Fleet Adult] 133 ml RECTAL DAILY PRN 03/05/22 [History] Sertraline HCl [Zoloft] 50 mg PO HS@2100 03/05/22 [History] amLODIPine [Norvasc] 10 mg PO DAILY@0800 03/05/22 [History] bisacodyL [Dulcolax] 10 mg RECTAL DAILY PRN 03/05/22 [History] lisinopriL [Zestril] 10 mg PO DAILY@0800 03/05/22 [History] Sulfamethox-Tmp 800-160Mg [Bactrim DS 800-160 mg] 1 tab PO Q12HR #14 tab 03/08/22 [Rx] Follow up Appointment(s)/Referral(s): Axel Hernandez DO [Primary Care Provider] - 1-2 days Ramone Cevallos MD [STAFF PHYSICIAN] - 1 Week Activity/Diet/Wound Care/Special Instructions: Change the dressing daily
[2022-03-08] MEDS ORDERED: MAGNESIUM HYDROXIDE 2,400 MG/10 ML CUP PO PRN (16:05)
[2022-03-08] MEDS ORDERED: NON FORMULARY DRUG (Acetaminophen [Tylenol 8 Hour] 650 MG Tablet) PO PRN (16:05)
[2022-03-08] MEDS ORDERED: NA PHOS,M-B/NA PHOS,DI-BA 133 ML ENEMA RECTAL PRN (16:05)
[2022-03-08] MEDS ORDERED: bisacodyL 10 MG SUPP RECTAL PRN (16:05)
[2022-03-09] MEDS ORDERED: lisinopriL 10 MG TAB PO SCH (08:00)
[2022-03-09] MEDS ORDERED: FERROUS SULFATE 325 MG TAB PO SCH (08:00)
== END 2022-03-08 17:02 | DRG 728 ==
LOC: EC 19:32 → 6NMEDSUR 23:32 → OBSVTOIN 03-07 11:54
PROVIDERS: ADMIT Urology; ATTEND Urology
PROC: 0V9500Z Drainage of Scrotum with Drainage Device, Open Approach (ICD-10-PCS; principal; 2022-03-07 07:30)
DX: N49.2 Inflammatory disorders of scrotum (principal); E87.1 Hypo-osmolality and hyponatremia; K57.92 Diverticulitis of intestine, part unspecified, without perforation or abscess without bleeding; Z20.822 Contact with and (suspected) exposure to COVID-19; F32.A Depression, unspecified; I10 Essential (primary) hypertension; K59.00 Constipation, unspecified; N50.0 Atrophy of testis; Z79.899 Other long term (current) drug therapy; Z87.891 Personal history of nicotine dependence; Z87.19 Personal history of other diseases of the digestive system; Z89.202 Acquired absence of left upper limb, unspecified level; Z92.21 Personal history of antineoplastic chemotherapy; Z85.47 Personal history of malignant neoplasm of testis
CPT/HCPCS: 36415; 71045; 76870; 80048; 80053; 80202; 81001; 84145; 85025; 87070; 87075; 87077; 87086; 87186; 87205; 87635; 93975; 96374; 99285

== ENCOUNTER 2024-04-21 15:23 | Inpatient (IN) | payer MEDICARE ==
--- NOTE | 2024-04-21 16:26 | ED ---
General Adult HPI - General Chief complaint: Recheck/Abnormal Lab/Rx Stated complaint: AMS/abn labs Time Seen by Provider: 04/21/24 15:25 Source: patient, EMS, RN notes reviewed Mode of arrival: EMS Limitations: physical limitation - History of Present Illness Initial comments: Patient is a 73-year-old male present to the emergency department with concerns for hyponatremia. Patient states he feels fine and has no complaints. Patient presents from detention with concern of sodium 114. They do report the patient has been confused. Patient denies any fatigue. Patient states he has been eating and drinking normally. - Related Data Home Medications Medication Instructions Recorded Confirmed Magnesium Hydroxide [Milk of 7,200 mg PO DAILY PRN 03/05/22 04/21/24 Magnesia Concentrate] Na Phos,M-B/Na Phos,Di-Ba [Fleet 133 ml RECTAL DAILY PRN 03/05/22 04/21/24 Adult] amLODIPine [Norvasc] 10 mg PO DAILY@0800 03/05/22 04/21/24 bisacodyL [Dulcolax] 10 mg RECTAL DAILY PRN 03/05/22 04/21/24 lisinopriL [Zestril] 10 mg PO DAILY@0800 03/05/22 04/21/24 Acetaminophen Tab [Tylenol] 650 mg PO Q4H PRN 04/21/24 04/21/24 Chlorhexidine Gluconate [Peridex] 15 ml PO BID@0800,1700 04/21/24 04/21/24 Cholecalciferol [Vitamin D3 (125 125 mcg PO DAILY@0800 04/21/24 04/21/24 Mcg = 5000 Iu)] Doxycycline Hyclate 100 mg PO BID@0800,1700 04/21/24 04/21/24 Gabapentin [Neurontin] 100 mg PO TID@0600,1400,2200 04/21/24 04/21/24 Loperamide HCl [Imodium A-D] 2 - 4 mg PO TID PRN MDD 8MG 04/21/24 04/21/24 Magic Butt Paste 1 applic TOPICAL BID 04/21/24 04/21/24 Melatonin 5 mg PO HS@2100 04/21/24 04/21/24 Menthol [Biofreeze] 1 applic TOPICAL Q8H PRN 04/21/24 04/21/24 Ofloxacin 0.3% Ophth Soln [Ocuflox 1 drop BOTH EYES QID@08,12,17,21 04/21/24 04/21/24 Ophth Soln] Orajel 3x Jvcdprcjot-Exltytt-Xclh 1 applic DENTAL Q6H PRN 04/21/24 04/21/24 Chloride 20-0.26-0.15% Sertraline [Zoloft] 100 mg PO DAILY@1700 04/21/24 04/21/24 guaiFENesin [guaiFENesin ER] 600 mg PO BID@0800,2100 04/21/24 04/21/24 guaiFENesin [guaiFENesin Oral 200 mg PO Q6H PRN 04/21/24 04/21/24 Solution] Allergies Allergy/AdvReac Type Severity Reaction Status Date / Time No Known Allergies Allergy Verified 04/21/24 16:29 Review of Systems ROS Statement: Those systems with pertinent positive or pertinent negative responses have been documented in the HPI. ROS Other: All systems not noted in ROS Statement are negative. 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 Past Anesthesia/Blood Transfusion Reactions: No Reported Reaction Past Psychological History: No Psychological Hx Reported Smoking Status: Former smoker Past Alcohol Use History: None Reported Past Drug Use History: None Reported - Past Family History Father History Unknown: Yes Mother Family Medical History: No Reported History General Exam Limitations: physical limitation General appearance: alert, in no apparent distress Head exam: Present: normocephalic Eye exam: Present: normal appearance, PERRL, EOMI ENT exam: Present: normal oropharynx Neck exam: Present: normal inspection Respiratory exam: Present: normal lung sounds bilaterally Cardiovascular Exam: Present: regular rate, normal rhythm GI/Abdominal exam: Present: soft. Absent: tenderness Extremities exam: Present: other (Left arm amputation) Neurological exam: Present: alert, oriented X3. Absent: motor sensory deficit Psychiatric exam: Present: normal affect, normal mood Skin exam: Present: normal color Course Vital Signs 04/21/24 15:26 Temperature 98.7 F Pulse Rate 80 Respiratory 18 Rate Blood Pressure 127/65 O2 Sat by Pulse 91 L Oximetry EKG Findings - EKG Results: EKG: interpreted by PATTI (rbophelia), normal axis, normal ST/T EKG shows: atrial fibrillation Medical Decision Making - Medical Decision Making Was pt. sent in by a medical professional or institution (, PA, VICE PRESIDENT [employer], urgent care, hospital, or detention...) When possible be specific @ -Patient was sent in by the detention Did you speak to anyone other than the patient for history (EMS, parent, family, police, friend...)? What history was obtained from this source @ -No Did you review nursing and triage notes (agree or disagree)? Why? @ -I reviewed and agree with nursing and triage notes Were old charts reviewed (outside hosp., previous admission, EMS record, old EKG, old radiological studies, urgent care reports/EKG's, detention records)? Report findings @ -prison chart reviewed Differential Diagnosis (chest pain, altered mental status, abdominal pain women, abdominal pain men, vaginal bleeding, weakness, fever, dyspnea, syncope, headache, dizziness, GI bleed, back pain, seizure, CVA, palpatations, mental health, musculoskeletal)? @ -Differential Weakness: Hypoglycemia, shock, sepsis, hyponatremia, anemia, infection, OH, ETOH, adverse medicine reaction, overdose, stroke, this is not meant to be an all-inclusive list. EKG interpreted by me (3pts min.). @ -As above X-rays interpreted by me (1pt min.). @ -Chest x-ray does show increased density posterior CT interpreted by me (1pt min.). @ -None done U/S interpreted by me (1pt. min.). @ -None done What testing was considered but not performed or refused? (CT, X-rays, U/S, labs)? Why? @ -None What meds were considered but not given or refused? Why? @ -None Did you discuss the management of the patient with other professionals (professionals i.e. , PA, VICE PRESIDENT [employer], lab, RT, psych nurse, social worker school, supervisor machining, teacher, animal services officer, trimming caser)? Give summary @ -Was discussed with Dr. Bernstein will do further investigation and admit and consult nephrology Was smoking cessation discussed for >3mins.? @ -No Was critical care preformed (if so, how long)? @ -No Were there social determinants of health that impacted care today? How? (Homelessness, low income, unemployed, alcoholism, drug addiction, transportation, low edu. Level, literacy, decrease access to med. care, senior living, rehab)? @ -No Was there de-escalation of care discussed even if they declined (Discuss DNR or withdrawal of care, Hospice)? DNR status @ -No What co-morbidities impacted this encounter? (DM, HTN, Smoking, COPD, CAD, Cancer, CVA, ARF, Chemo, Hep., AIDS, mental health diagnosis, sleep apnea, morbid obesity)? @ -None Was patient admitted / discharged? Hospital course, mention meds given and route, prescriptions, significant lab abnormalities, going to OR and other pertinent info. @ -Patient presents with hyponatremia, unclear etiology. Patient will be admitted with nephrology consult. Admission orders written. Undiagnosed new problem with uncertain prognosis? @ -No Drug Therapy requiring intensive monitoring for toxicity (Heparin, Nitro, Insulin, Cardizem)? @ -No Were any procedures done? @ -No Diagnosis/symptom? @ -Hyponatremia, pneumonia Acute, or Chronic, or Acute on Chronic? @ -Acute, acute on chronic Uncomplicated (without systemic symptoms) or Complicated (systemic symptoms)? @ -Located with recent pneumonia diagnosed Side effects of treatment? @ -No Exacerbation, Progression, or Severe Exacerbation? @ -No Poses a threat to life or bodily function? How? (Chest pain, [place], OH, pneumonia, PE, COPD, DKA, ARF, appy, cholecystitis, CVA, Diverticulitis, Homicidal, Suicidal, threat to staff... and all critical care pts) @ -To metabolic function - Lab Data Result diagrams: 04/21/24 16:31 04/21/24 16:31 Lab Results 04/21/24 04/21/24 04/21/24 Range/Units 16:31 16:31 16:31 WBC 11.4 H (3.8-10.6) k/uL RBC 5.31 (4.30-5.90) m/uL Hgb 15.6 (13.0-17.5) gm/dL Hct 46.0 (39.0-53.0) % MCV 86.7 (80.0-100.0) fL MCH 29.3 (25.0-35.0) pg MCHC 33.8 (31.0-37.0) g/dL RDW 12.8 (11.5-15.5) % Plt Count 249 (150-450) k/uL MPV 7.7 Neutrophils % 84 % Lymphocytes % 6 % Monocytes % 7 % Eosinophils % 2 % Basophils % 0 % Neutrophils # 9.6 H (1.3-7.7) k/uL Lymphocytes # 0.7 L (1.0-4.8) k/uL Monocytes # 0.8 (0-1.0) k/uL Eosinophils # 0.2 (0-0.7) k/uL Basophils # 0.0 (0-0.2) k/uL PT 12.0 (10.0-12.5) sec INR 1.1 (<1.2) APTT 29.2 (22.0-30.0) sec Sodium 116 L* (137-145) mmol/L Potassium 3.9 (3.5-5.1) mmol/L Chloride 83 L (98-107) mmol/L Carbon Dioxide 28 (22-30) mmol/L Anion Gap 5 mmol/L BUN 10 (9-20) mg/dL Creatinine 0.46 L (0.66-1.25) mg/dL Est GFR (CKD-EPI)AfAm >90 (>60 ml/min/1.73 sqM) Est GFR (CKD-EPI)NonAf >90 (>60 ml/min/1.73 sqM) Glucose 97 (74-99) mg/dL Plasma Lactic Acid Luis (0.7-2.0) mmol/L Calcium 8.3 L (8.4-10.2) mg/dL Magnesium 1.6 (1.6-2.3) mg/dL Total Bilirubin 1.1 (0.2-1.3) mg/dL AST 33 (17-59) U/L ALT 19 (4-49) U/L Alkaline Phosphatase 69 (38-126) U/L Total Protein 6.2 L (6.3-8.2) g/dL Albumin 3.3 L (3.5-5.0) g/dL 04/21/24 Range/Units 16:31 WBC (3.8-10.6) k/uL RBC (4.30-5.90) m/uL Hgb (13.0-17.5) gm/dL Hct (39.0-53.0) % MCV (80.0-100.0) fL MCH (25.0-35.0) pg MCHC (31.0-37.0) g/dL RDW (11.5-15.5) % Plt Count (150-450) k/uL MPV Neutrophils % % Lymphocytes % % Monocytes % % Eosinophils % % Basophils % % Neutrophils # (1.3-7.7) k/uL Lymphocytes # (1.0-4.8) k/uL Monocytes # (0-1.0) k/uL Eosinophils # (0-0.7) k/uL Basophils # (0-0.2) k/uL PT (10.0-12.5) sec INR (<1.2) APTT (22.0-30.0) sec Sodium (137-145) mmol/L Potassium (3.5-5.1) mmol/L Chloride (98-107) mmol/L Carbon Dioxide (22-30) mmol/L Anion Gap mmol/L BUN (9-20) mg/dL Creatinine (0.66-1.25) mg/dL Est GFR (CKD-EPI)AfAm (>60 ml/min/1.73 sqM) Est GFR (CKD-EPI)NonAf (>60 ml/min/1.73 sqM) Glucose (74-99) mg/dL Plasma Lactic Acid Luis 0.8 (0.7-2.0) mmol/L Calcium (8.4-10.2) mg/dL Magnesium (1.6-2.3) mg/dL Total Bilirubin (0.2-1.3) mg/dL AST (17-59) U/L ALT (4-49) U/L Alkaline Phosphatase (38-126) U/L Total Protein (6.3-8.2) g/dL Albumin (3.5-5.0) g/dL Disposition Clinical Impression: Hyponatremia Disposition: ADMITTED IP TO THIS HOSP Condition: Serious Is patient prescribed a controlled substance at d/c from ED?: No Referrals: Axel Hernandez DO [Primary Care Provider] - 1-2 days Time of Disposition: 17:46
[2024-04-21 16:53] LABS: Basophils % (A) 0 %; Eosinophils # (A) 0.2 k/uL (0-0.7); Eosinophils % (A) 2 %; HGB 15.6 gm/dL (13.0-17.5); Lymphocytes # (A) 0.7 k/uL (1.0-4.8); Lymphocytes % (A) 6 %; MCH 29.3 pg (25.0-35.0); MCHC 33.8 g/dL (31.0-37.0); MCV 86.7 fL (80.0-100.0); Mean Platelet Volume 7.7; Monocytes # (A) 0.8 k/uL (0-1.0); Monocytes % (A) 7 %; Neutrophils # (A) 9.6 k/uL (1.3-7.7); Neutrophils % (A) 84 %; Platelet Count 249 k/uL (150-450); RBC 5.31 m/uL (4.30-5.90); RDW 12.8 % (11.5-15.5); WBC 11.4 k/uL (3.8-10.6)
[2024-04-21] MEDS: SODIUM CHLORIDE 0.9% 1,000 ML IV STA (16:55)
[2024-04-21 17:02] LABS: INR 1.1 (<1.2); Partial Thromboplastin Time 29.2 sec (22.0-30.0)
[2024-04-21 17:10] LABS: ALT 19 U/L (4-49); African American GFR (CKD) >90 (>60 ml/min/1.73 sqM); Albumin 3.3 g/dL (3.5-5.0); Anion Gap 5 mmol/L; Blood Urea Nitrogen 10 mg/dL (9-20); Calcium 8.3 mg/dL (8.4-10.2); Carbon Dioxide 28 mmol/L (22-30); Chloride 83 mmol/L (98-107); Glucose 97 mg/dL (74-99); Non-African American GFR(CKD) >90 (>60 ml/min/1.73 sqM); Total Bilirubin 1.1 mg/dL (0.2-1.3); Total Protein 6.2 g/dL (6.3-8.2)
[2024-04-21 17:16] LABS: AST 33 U/L (17-59); Alkaline Phosphatase 69 U/L (38-126); Magnesium 1.6 mg/dL (1.6-2.3); Potassium 3.9 mmol/L (3.5-5.1)
[2024-04-21 17:18] LABS: Sodium 116 mmol/L (137-145)
--- NOTE | 2024-04-21 17:26 | XR ---
EXAMINATION TYPE: XR chest 2V DATE OF EXAM: 04/21/2024 5:21 PM CLINICAL INDICATION:Male, 73 years old with history of Weakness; [facility] COMPARISON: Chest radiographs frome 03/06/2022 TECHNIQUE: XR chest 2V Frontal view of the chest. FINDINGS: Lungs/Pleura: Airspace opacities project over the spine. There is no evidence of pleural effusion, fo sridhar consolidation, or pneumothorax. Pulmonary vascularity: Unremarkable. Heart/mediastinum: Cardiomediastinal silhouette is unremarkable. Musculoskeletal: No acute osseous pathology. IMPRESSION: Airspace opacities project over the spine correlate for pneumonia.
[2024-04-21] MEDS ORDERED: NALOXONE 0.4 MG/ML 1 ML VIAL IV PRN (17:47)
[2024-04-21] MEDS ORDERED: guaiFENesin SYRUP 100MG/5ML 200 MG/10 ML CUP PO PRN (17:48)
[2024-04-21] MEDS ORDERED: LOPERAMIDE 2 MG CAP PO PRN (17:48)
[2024-04-21] MEDS ORDERED: METHYL SALICYLATE-MENTHOL OINT (3 OZ TUBE) TOPICAL PRN (17:48)
[2024-04-21] MEDS ORDERED: MAGNESIUM HYDROXIDE 2,400 MG/30 ML CUP PO PRN (17:48)
[2024-04-21] MEDS ORDERED: NA PHOS,M-B/NA PHOS,DI-BA 133 ML ENEMA RECTAL PRN (17:48)
[2024-04-21] MEDS ORDERED: BENZOCAINE 20 % GEL 11.9 GM TUBE MM PRN (17:48)
[2024-04-21] MEDS ORDERED: bisacodyL 10 MG SUPP RECTAL PRN (17:48)
[2024-04-21] MEDS: SODIUM CHLORIDE 0.9% 1,000 ML IV SCH (17:52)
[2024-04-21] MEDS: DOXYCYCLINE 100 MG CAP PO SCH (19:24)
[2024-04-21] MEDS: guaiFENesin 600 MG TABLET.ER PO SCH (20:28)
[2024-04-21] MEDS ORDERED: NON FORMULARY DRUG (Magic Butt Paste 1 APPLIC) TOPICAL SCH (21:00)
[2024-04-21 22:24] LABS: Appearance,Urine Clear (Clear); Bilirubin,Urine Negative (Negative); Blood,Urine Negative (Negative); Color,Urine Colorless; Glucose,Urine (UA) Negative (Negative); Ketones,Urine Trace (Negative); Leukocyte Esterase,Urine Negative (Negative); Nitrite,Urine Negative (Negative); PH, Urine 6.5 (5.0-8.0); Protein,Urine Negative (Negative); Specific Gravity,Urine 1.004 (1.001-1.035); Urobilinogen,Urine <2.0 mg/dL (<2.0)
[2024-04-21] MEDS: MELATONIN 5 MG TABLET PO SCH (23:16)
[2024-04-21] MEDS: GABAPENTIN 100 MG CAP PO SCH (23:16)
[2024-04-21] MEDS: AZITHROMYCIN 500 MG TAB PO SCH (23:17)
[2024-04-21] MEDS: BACITRACIN OINT 1 EACH PACKET TOPICAL SCH (23:17)
[2024-04-21] MEDS: OFLOXACIN 0.3% OPHTH DROPS 5 ML BOTTLE BOTH EYES SCH (23:17)
[2024-04-22] MEDS: ACETAMINOPHEN TAB 325 MG TAB PO PRN (04:16)
[2024-04-22 07:38] LABS: Basophils # (A) 0.1 k/uL (0-0.2); Basophils % (A) 1 %; Eosinophils # (A) 0.1 k/uL (0-0.7); Eosinophils % (A) 1 %; HCT 47.9 % (39.0-53.0); HGB 16.1 gm/dL (13.0-17.5); Lymphocytes # (A) 0.6 k/uL (1.0-4.8); Lymphocytes % (A) 6 %; MCH 29.9 pg (25.0-35.0); MCHC 33.7 g/dL (31.0-37.0); MCV 88.7 fL (80.0-100.0); Mean Platelet Volume 7.7; Monocytes # (A) 0.7 k/uL (0-1.0); Monocytes % (A) 6 %; Neutrophils # (A) 9.7 k/uL (1.3-7.7); Neutrophils % (A) 86 %; Platelet Count 219 k/uL (150-450); RDW 12.8 % (11.5-15.5); WBC 11.3 k/uL (3.8-10.6)
[2024-04-22 07:40] LABS: African American GFR (CKD) >90 (>60 ml/min/1.73 sqM); Anion Gap 8 mmol/L; Blood Urea Nitrogen 10 mg/dL (9-20); Calcium 8.3 mg/dL (8.4-10.2); Carbon Dioxide 25 mmol/L (22-30); Chloride 86 mmol/L (98-107); Glucose 94 mg/dL (74-99); Non-African American GFR(CKD) >90 (>60 ml/min/1.73 sqM)
[2024-04-22 07:44] LABS: Potassium 4.1 mmol/L (3.5-5.1); Sodium 119 mmol/L (137-145)
[2024-04-22] MEDS: CHOLECALCIFEROL 125 MCG (5000 IU) TABLET PO SCH (08:24)
[2024-04-22] MEDS: amLODIPine 10 MG TAB PO SCH (08:24)
[2024-04-22] MEDS: lisinopriL 10 MG TAB PO SCH (08:25)
--- NOTE | 2024-04-22 11:38 | P.NPCON ---
History of Present Illness - Reason for Consult hyponatremia - History of Present Illness Patient is a 73-year-old male with history of hypertension who is admitted to the hospital with a history of fall. From the ER note it appears that labs done as outpatient showed a sodium of 114. Patient has been confused. He denies any complaints of nausea vomiting abdominal pain or diarrhea. Blood pressure has not been low. Serum sodium was 116 on admission and improved to 119 this morning. Patient has been maintained on saline at 75 cc an hour. Urine osmolality was 135 and random urine sodium was less than 20. No diuretics noted on home med list. 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 Past Anesthesia/Blood Transfusion Reactions: No Reported Reaction Past Psychological History: No Psychological Hx Reported Smoking Status: Former smoker Past Alcohol Use History: None Reported Past Drug Use History: None Reported - Past Family History Father History Unknown: Yes Mother Family Medical History: No Reported History Medications and Allergies Home Medications Medication Instructions Recorded Confirmed Type Magnesium Hydroxide [Milk of 7,200 mg PO DAILY PRN 03/05/22 04/21/24 History Magnesia Concentrate] Na Phos,M-B/Na Phos,Di-Ba [Fleet 133 ml RECTAL DAILY PRN 03/05/22 04/21/24 History Adult] amLODIPine [Norvasc] 10 mg PO DAILY@0800 03/05/22 04/21/24 History bisacodyL [Dulcolax] 10 mg RECTAL DAILY PRN 03/05/22 04/21/24 History lisinopriL [Zestril] 10 mg PO DAILY@0803/05/22 04/21/24 History Acetaminophen Tab [Tylenol] 650 mg PO Q4H PRN 04/21/24 04/21/24 History Chlorhexidine Gluconate [Peridex] 15 ml PO BID@0800,1700 04/21/24 04/21/24 History Cholecalciferol [Vitamin D3 (125 125 mcg PO DAILY@0800 04/21/24 04/21/24 History Mcg = 5000 Iu)] Doxycycline Hyclate 100 mg PO BID@0800,1700 04/21/24 04/21/24 History Gabapentin [Neurontin] 100 mg PO TID@0600,1400,2200 04/21/24 04/21/24 History Loperamide HCl [Imodium A-D] 2 - 4 mg PO TID PRN MDD 8MG 04/21/24 04/21/24 History Magic Butt Paste 1 applic TOPICAL BID 04/21/24 04/21/24 History Melatonin 5 mg PO HS@2100 04/21/24 04/21/24 History Menthol [Biofreeze] 1 applic TOPICAL Q8H PRN 04/21/24 04/21/24 History Ofloxacin 0.3% Ophth Soln [Ocuflox 1 drop BOTH EYES QID@08,12,17,21 04/21/24 04/21/24 History Ophth Soln] Orajel 3x Bvtxhlfgqz-Zephdnd-Sauq 1 applic DENTAL Q6H PRN 04/21/24 04/21/24 History Chloride 20-0.26-0.15% Sertraline [Zoloft] 100 mg PO DAILY@1700 04/21/24 04/21/24 History guaiFENesin [guaiFENesin ER] 600 mg PO BID@0800,2100 04/21/24 04/21/24 History guaiFENesin [guaiFENesin Oral 200 mg PO Q6H PRN 04/21/24 04/21/24 History Solution] Allergies Allergy/AdvReac Type Severity Reaction Status Date / Time No Known Allergies Allergy Verified 04/21/24 16:29 Physical Exam Vitals: Vital Signs Temp Pulse Resp BP Pulse Ox 04/22/24 11:04 80 18 94 L 04/22/24 10:06 98.3 F 78 18 132/53 94 L 04/22/24 08:22 98.5 F 82 20 122/84 96 04/22/24 07:50 89 20 123/76 94 L 04/22/24 06:49 85 18 124/75 92 L 04/22/24 01:15 73 18 117/74 93 L 04/21/24 22:00 86 181 H 124/78 91 L 04/21/24 15:26 98.7 F 80 18 127/65 91 L Intake and Output 04/21/24 04/22/24 04/22/24 22:59 06:59 14:59 Output Total 2156 Balance -6 Output: Urine 1400 Post Void Residual 756 Other: Weight 138.346 kg Patient is awake, comfortable, no acute distress. 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 Patient is moving all 4 extremities. Results - Lab Results Most recent lab results Calcium 8.3 mg/dL (8.4-10.2) L 04/22/24 07:07 Magnesium 1.6 mg/dL (1.6-2.3) 04/21/24 16:31 04/22/24 07:07 04/22/24 07:07 Assessment and Plan Assessment: 1. Hyponatremia, hypovolemic. Sodium has improved with normal saline. Rule out urine retention. Check TSH. I will continue with the normal saline for now and repeat sodium in 4 hours. 2. Hypertension, blood pressure is controlled. 3. Possible pneumonia. Plan: Check bladder scan Continue with normal saline. Goal rate open increase in sodium at 8-10 over 24 hours. Check TSH Repeat sodium in 4 hours Thank you for the consultation. We will continue to follow the patient with you during his hospitalization.
--- NOTE | 2024-04-22 17:29 | P.HPIM ---
History of Present Illness H&P Date: 04/21/24 Chief Complaint: Low-sodium This is a 73-year-old patient, sent in from the [facility] with a low sodium. 114. Patient not a good historian. History is somewhat scattered. Patient has slight shortness of breath. Appetite is good. No change in bowel pattern. He is forgetful. He has some wound on the right leg he states is from a fall recently. He had been on doxycycline for pneumonia treatment. Really cannot give much other history. Somewhat tired Review of systems: GEN.: Tired EYES: None HEENT: None NECK: None RESPIRATORY: Mild shortness of breath CARDIOVASCULAR: None GASTROINTESTINAL: Abdominal wall scar e GENITOURINARY: None MUSCULOSKELETAL: Some joint pains LYMPHATICS: None HEMATOLOGICAL: None PSYCHIATRY: Forgetful] NEUROLOGICAL: None Social history: Patient smokes cigars years ago. Drank alcohol for 45 years stopped in 2018. Currently at [facility]. Physical examination: VITAL SIGNS: 98.7, 80, 18, 127/65, 91% room air GENERAL: BMI 38.1, resting in bed, a bit tired. EYES: Pupils equal. Conjunctiva lorenzo l. HEENT: External appearance of nose and ears normal, oral cavity grossly normal. NECK: JVD not raised; masses not palpable. HEART: First and second heart sounds are normal; no edema. LUNGS: Respiratory rate increased, decreased breath sounds. ABDOMEN: Soft, nontender, liver spleen not palpable, no masses palpable. Mid abdominal area of scarring PSYCH: Patient is able to answer simple questions. He knows that he is in the hospital. Cannot tell the name. Knows the year not sure about the month. l. MUSCULOSKELETAL:No Clubbing/cyanosis;muscles-grossly intact. OA Superficial wounds on the right leg anteriorly. NEUROLOGICAL: Cranial nerves grossly intact; no facial asymmetry, power and sensation grossly intact. LYMPHATICS: No lymph nodes palpable in the axilla and neck INVESTIGATIONS, reviewed in the clinical context: April 21: White count 11.4 hemoglobin 15.6 platelets 249 sodium 116 potassium 3.9 BUN 10 creatinine 0.46 EKG tracing personally reviewed by me-atrial fibrillation. Right bundle los block. Chest x-ray film personally reviewed by me-cardiomegaly. Possible infiltrate Plan: -Hyponatremia severe, possibly euvolemic Fluid restrict 1500 cc a day. 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 Past Anesthesia/Blood Transfusion Reactions: No Reported Reaction Past Psychological History: No Psychological Hx Reported Smoking Status: Former smoker Past Alcohol Use History: None Reported Past Drug Use History: None Reported - Past Family History Father History Unknown: Yes Mother Family Medical History: No Reported History Medications and Allergies Home Medications Medication Instructions Recorded Confirmed Type Magnesium Hydroxide [Milk of 7,200 mg PO DAILY PRN 03/05/22 04/21/24 History Magnesia Concentrate] Na Phos,M-B/Na Phos,Di-Ba [Fleet 133 ml RECTAL DAILY PRN 03/05/22 04/21/24 History Adult] amLODIPine [Norvasc] 10 mg PO DAILY@0800 03/05/22 04/21/24 History bisacodyL [Dulcolax] 10 mg RECTAL DAILY PRN 03/05/22 04/21/24 History lisinopriL [Zestril] 10 mg PO DAILY@0800 03/05/22 04/21/24 History Acetaminophen Tab [Tylenol] 650 mg PO Q4H PRN 04/21/24 04/21/24 History Chlorhexidine Gluconate [Peridex] 15 ml PO BID@0800,1700 04/21/24 04/21/24 History Cholecalciferol [Vitamin D3 (125 125 mcg PO DAILY@0800 04/21/24 04/21/24 History Mcg = 5000 Iu)] Doxycycline Hyclate 100 mg PO BID@0800,1700 04/21/24 04/21/24 History Gabapentin [Neurontin] 100 mg PO TID@0600,1400,2200 04/21/24 04/21/24 History Loperamide HCl [Imodium A-D] 2 - 4 mg PO TID PRN MDD 8MG 04/21/24 04/21/24 History Magic Butt Paste 1 applic TOPICAL BID 04/21/24 04/21/24 History Melatonin 5 mg PO HS@2100 04/21/24 04/21/24 History Menthol [Biofreeze] 1 applic TOPICAL Q8H PRN 04/21/24 04/21/24 History Ofloxacin 0.3% Ophth Soln [Ocuflox 1 drop BOTH EYES QID@08,12,17,21 04/21/24 04/21/24 History Ophth Soln] Orajel 3x [id number]-Dmkp 1 applic DENTAL Q6H PRN 04/21/24 04/21/24 History Chloride 20-0.26-0.15% Sertraline [Zoloft] 100 mg PO DAILY@1700 04/21/24 04/21/24 History guaiFENesin [guaiFENesin ER] 600 mg PO BID@0800,2100 04/21/24 04/21/24 History guaiFENesin [guaiFENesin Oral 200 mg PO Q6H PRN 04/21/24 04/21/24 History Solution] Allergies Allergy/AdvReac Type Severity Reaction Status Date / Time No Known Allergies Allergy Verified 04/21/24 16:29 Physical Exam Vitals: Vital Signs Temp Pulse Resp BP Pulse Ox 04/21/24 15:26 98.7 F 80 18 127/65 91 L Intake and Output 04/21/24 04/21/24 04/21/24 06:59 14:59 22:59 Other: Weight 138.346 kg Results CBC & Chem 7: 04/22/24 07:07 04/22/24 13:08 Labs: Abnormal Lab Results - Last 24 Hours (Table) 04/21/24 04/21/24 Range/Units 16:31 16:31 WBC 11.4 H (3.8-10.6) k/uL Neutrophils # 9.6 H (1.3-7.7) k/uL Lymphocytes # 0.7 L (1.0-4.8) k/uL Sodium 116 L* (137-145) mmol/L Chloride 83 L (98-107) mmol/L Creatinine 0.46 L (0.66-1.25) mg/dL Calcium 8.3 L (8.4-10.2) mg/dL Total Protein 6.2 L (6.3-8.2) g/dL Albumin 3.3 L (3.5-5.0) g/dL
--- NOTE | 2024-04-22 17:33 | P.PN ---
Progress Note - Text Progress Note Date: 04/22/24 Chief Complaint: Low-sodium This is a 73-year-old patient, sent in from the [facility] with a low sodium. 114. Patient not a good historian. History is somewhat scattered. Patient has slight shortness of breath. Appetite is good. No change in bowel pattern. He is forgetful. He has some wound on the right leg he states is from a fall recently. He had been on doxycycline for pneumonia treatment. Really cannot give much other history. Somewhat tired April 22: Admitted with severe hyponatremia. Hypoosmolar. Pneumonia. Fluid restriction. IV antibiotics. Saline at 75 cc an hour. Eating fair Active Medications Acetaminophen (Acetaminophen Tab 325 Mg Tab) 650 mg PO Q6HR PRN PRN Reason: Mild Pain or Fever > 100.5 Last Admin: 04/22/24 04:16 Dose: 650 mg Amlodipine Besylate (Amlodipine 10 Mg Tab) 10 mg PO DAILY@0800 [facility] Last Admin: 04/22/24 08:24 Dose: 10 mg Azithromycin (Azithromycin 500 Mg Tab) 500 mg PO DAILY [facility]; Protocol Stop: 04/23/24 09:01 Last Admin: 04/22/24 08:24 Dose: 500 mg Bacitracin (Bacitracin Oint 1 Each Packet) 1 each TOPICAL TID [facility]; Protocol Last Admin: 04/22/24 08:25 Dose: 1 each Benzocaine (Benzocaine 20 % Gel 11.9 Gm Tube) 1 applic MM Q6H PRN PRN Reason: tooth pain Bisacodyl (Bisacodyl 10 Mg Supp) 10 mg RECTAL DAILY PRN PRN Reason: Constipation Cholecalciferol (Cholecalciferol 125 Mcg (5000 Iu) Tablet) 125 mcg PO DAILY@0800 [facility] Last Admin: 04/22/24 08:24 Dose: 125 mcg Doxycycline Monohydrate (Doxycycline 100 Mg Cap) 100 mg PO BID@0800,1700 [facility] Stop: 04/24/24 23:00 Last Admin: 04/22/24 08:24 Dose: 100 mg Gabapentin (Gabapentin 100 Mg Cap) 100 mg PO TID@0600,1400,2200 [facility] Last Admin: 04/22/24 15:43 Dose: Not Given Guaifenesin (Guaifenesin 600 Mg Tablet.Er) 600 mg PO BID@0800,2100 [facility] Last Admin: 04/22/24 08:24 Dose: 600 mg Guaifenesin (Guaifenesin Syrup 100mg/5ml 200 Mg/10 Ml Cup) 200 mg PO Q6H PRN PRN Reason: Cough Sodium Chloride (Saline 0.9%) 1,000 mls @ 75 mls/hr IV .[id number] [facility] Last Admin: 04/22/24 08:29 Dose: 75 mls/hr Ceftriaxone Sodium 1 gm/ (Sodium Chloride) 50 mls @ 100 mls/hr IVPB Q24H [facility]; Protocol Last Admin: 04/21/24 23:17 Dose: 100 mls/hr Lisinopril (Lisinopril 10 Mg Tab) 10 mg PO DAILY@0800 [facility] Last Admin: 04/22/24 08:25 Dose: 10 mg Loperamide HCl (Loperamide 2 Mg Cap) 2 mg PO TID PRN PRN Reason: Diarrhea Magnesium Hydroxide (Magnesium Hydroxide 2,400 Mg/30 Ml Cup) 2,400 mg PO DAILY PRN PRN Reason: Constipation Melatonin (Melatonin 5 Mg Tablet) 5 mg PO HS@2100 [facility] Last Admin: 04/21/24 23:16 Dose: 5 mg Methyl Salicylate (Methyl Salicylate-Menthol Oint (3 Oz Tube)) 1 applic TOPICAL Q8H PRN PRN Reason: Skin Irritation PAIN Naloxone HCl (Naloxone 0.4 Mg/Ml 1 Ml Vial) 0.2 mg IV Q2M PRN PRN Reason: Opioid Reversal Ofloxacin (Ofloxacin 0.3% Ophth Drops 5 Ml Bottle) 1 drops BOTH EYES QID@08,12,17,21 [facility] Last Admin: 04/22/24 11:03 Dose: 1 drops Sertraline HCl (Sertraline 100 Mg Tab) 100 mg PO DAILY@1700 [facility] Sodium Biphosphate/Sodium Phosphate (Na Phos,M-B/Na Phos,Di-Ba 133 Ml Enema) 133 ml RECTAL DAILY PRN PRN Reason: Constipation Social history: Patient smokes cigars years ago. Drank alcohol for 45 years stopped in 2018. Currently at [facility]. Physical examination: VITAL SIGNS: 98.2, 22, 16, 120 x 68, 97% room air GENERAL: Resting in bed. EYES: Pupils equal. Conjunctiva lorenzo l. HEENT: External appearance of nose and ears normal, oral cavity grossly normal. NECK: JVD not raised; masses not palpable. HEART: First and second heart sounds are normal; no edema. LUNGS: Respiratory rate increased, decreased breath sounds. ABDOMEN: Soft, nontender, liver spleen not palpable, no masses palpable. Mid abdominal area of scarring PSYCH: Patient is able to answer simple questions. He knows that he is in the hospital. Cannot tell the name. Knows the year not sure about the month. l. MUSCULOSKELETAL:No Clubbing/cyanosis;muscles-grossly intact. OA Superficial wounds on the right leg anteriorly. INVESTIGATIONS, reviewed in the clinical context: April 22: White count 9.3 hemoglobin 16.1 platelets 219 sodium 119 potassium 4.1 creatinine 0.48 serum muscularity 250. Urine osmolality 287 urine sodium 47. TSH 1.05 April 21: White count 11.4 hemoglobin 15.6 platelets 249 sodium 116 potassium 3.9 BUN 10 creatinine 0.46 urine osmolality 135 random urine sodium less than 20 EKG tracing personally reviewed by me-atrial fibrillation. Right bundle los block. Chest x-ray film personally reviewed by me-cardiomegaly. Possible infiltrate Plan: -Hyponatremia severe, possibly hypovolemic. Slow to respond Fluid restrict 1500 cc a day. Normal saline 75 cc an hour Follow serum urine osmolality.'s urine sodium Nephrology following -Pneumonia suspect gram-negative organism IV ceftriaxone Zithromax -Moderate cognitive impairment likely Alzheimer's dementia -Essential hypertension Amlodipine 10 mg a day Zestril 10 mg a day -Chronic insomnia for medical conditions Melatonin 5 mg nightly -Depression Zoloft 100 mg a day -Right lower extremity traumatic superficial wound secondary to fall Topical bacitracin cream -Full code 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 Past Anesthesia/Blood Transfusion Reactions: No Reported Reaction Past Psychological History: No Psychological Hx Reported Smoking Status: Former smoker Past Alcohol Use History: None Reported Past Drug Use History: None Reported
[2024-04-22] MEDS: SERTRALINE 100 MG TAB PO SCH (17:50)
[2024-04-23 08:59] LABS: African American GFR (CKD) >90 (>60 ml/min/1.73 sqM); Anion Gap 11 mmol/L; Blood Urea Nitrogen 7 mg/dL (9-20); Calcium 8.7 mg/dL (8.4-10.2); Carbon Dioxide 22 mmol/L (22-30); Chloride 93 mmol/L (98-107); Glucose 96 mg/dL (74-99); Non-African American GFR(CKD) >90 (>60 ml/min/1.73 sqM); Sodium 126 mmol/L (137-145)
[2024-04-23 09:08] LABS: Potassium 4.6 mmol/L (3.5-5.1)
--- NOTE | 2024-04-23 11:53 | P.PN ---
Subjective patient is seen for follow-up for hyponatremia. He is currently awake and comfortable with no acute distress. Patient was noted to have significant urine retention yesterday with 500 mL of urine noted on bladder scan. He currently has an external catheter and 3.2 L of urine noted in 24 hours. serum sodium at 126 today. Maintained on saline at 75 mL an hour Objective - Vital Signs Vital signs: Vital Signs Temp 97.5 F L 04/23/24 08:30 Pulse 69 04/23/24 08:30 Resp 16 04/23/24 08:30 BP 125/74 04/23/24 08:30 Pulse Ox 92 L 04/23/24 08:30 FiO2 Intake & Output 04/22/24 04/23/24 04/23/24 18:59 06:59 18:59 Intake Total 240 250 Output Total 3056 950 Balance -2816 -700 Weight 138.346 kg 139.3 kg Intake: Oral 240 250 Output: Urine 2300 950 Post Void Residual 756 Other: Voiding Method External Catheter External Catheter External Catheter - Exam Patient is awake, comfortable, no acute distress. 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 Patient is moving all 4 extremities. patient does not have left upper extremity - Labs CBC & Chem 7: 04/22/24 07:07 04/23/24 07:57 Labs: Abnormal Lab Results - Last 24 Hours (Table) 04/21/24 04/22/24 04/22/24 Range/Units 16:31 07:07 08:22 Sodium (137-145) mmol/L Chloride (98-107) mmol/L BUN (9-20) mg/dL Creatinine (0.66-1.25) mg/dL Osmolality 250 L 250 L (275-295) mOsm/kg Urine Osmolality 287 L (400-1100) mOsm/kg 04/22/24 04/23/24 Range/Units 13:08 07:57 Sodium 123 L 126 L (137-145) mmol/L Chloride 93 L (98-107) mmol/L BUN 7 L (9-20) mg/dL Creatinine 0.48 L (0.66-1.25) mg/dL Osmolality (275-295) mOsm/kg Urine Osmolality (400-1100) mOsm/kg Assessment and Plan Assessment: 1. Hyponatremia, hypovolemic. Sodium has improved with normal saline. Patient also has significant urine retention. I will continue with the normal saline for now and repeat sodium this evening. 2. Hypertension, blood pressure is controlled. 3. Possible pneumonia. 4. Urine retention, currently with external catheter. Bladder scan will be repeated and we will place Powell catheter if there continues to be significant retention. Plan: continue with normal saline. Encourage increased oral intake Repeat bladder scan and insert Powell catheter if there continues to be significant urine retention. Repeat sodium this evening and again in a.m.
--- NOTE | 2024-04-23 16:16 | P.PN ---
Subjective Progress Note Date: 04/23/24 73-year-old patient, sent in from the [facility] with a low sodium. 114. Patient not a good historian. History is somewhat scattered. Patient has slight shortness of breath. Appetite is good. No change in bowel pattern. He is forgetful. He has some wound on the right leg he states is from a fall recently. He had been on doxycycline for pneumonia treatment. Really cannot give much other history. Somewhat tired April 22: Admitted with severe hyponatremia. Hypoosmolar. Pneumonia. Fluid restriction. IV antibiotics. Saline at 75 cc an hour. Eating fair Objective - Vital Signs Vital signs: Vital Signs Temp 97.5 F L 04/23/24 08:30 Pulse 69 04/23/24 08:30 Resp 16 04/23/24 08:30 BP 125/74 04/23/24 08:30 Pulse Ox 92 L 04/23/24 08:30 FiO2 Intake & Output 04/22/24 04/23/24 04/23/24 18:59 06:59 18:59 Intake Total 240 250 Output Total 3056 950 Balance -2816 -700 Weight 138.346 kg 139.3 kg Intake: Oral 240 250 Output: Urine 2300 950 Post Void Residual 756 Other: Voiding Method External Catheter External Catheter External Catheter - Exam GENERAL: Resting in bed. EYES: Pupils equal. Conjunctiva lorenzo l. HEENT: External appearance of nose and ears normal, oral cavity grossly normal. NECK: JVD not raised; masses not palpable. HEART: First and second heart sounds are normal; no edema. LUNGS: Respiratory rate increased, decreased breath sounds. ABDOMEN: Soft, nontender, liver spleen not palpable, no masses palpable. Mid abdominal area of scarring PSYCH: Patient is able to answer simple questions. He knows that he is in the hospital. Cannot tell the name. Knows the year not sure about the month. l. MUSCULOSKELETAL:No Clubbing/cyanosis;muscles-grossly intact. OA Superficial wounds on the right leg anteriorly. - Labs CBC & Chem 7: 04/22/24 07:07 04/23/24 07:57 Labs: Abnormal Lab Results - Last 24 Hours (Table) 04/21/24 04/22/24 04/22/24 Range/Units 16:31 07:07 08:22 Sodium (137-145) mmol/L Chloride (98-107) mmol/L BUN (9-20) mg/dL Creatinine (0.66-1.25) mg/dL Osmolality 250 L 250 L (275-295) mOsm/kg Urine Osmolality 287 L (400-1100) mOsm/kg 04/22/24 04/23/24 Range/Units 13:08 07:57 Sodium 123 L 126 L (137-145) mmol/L Chloride 93 L (98-107) mmol/L BUN 7 L (9-20) mg/dL Creatinine 0.48 L (0.66-1.25) mg/dL Osmolality (275-295) mOsm/kg Urine Osmolality (400-1100) mOsm/kg Assessment and Plan Assessment: -Hyponatremia severe, possibly hypovolemic. Slow to respond Fluid restrict 1500 cc a day. Normal saline 75 cc an hour Follow serum urine osmolality.'s urine sodium Nephrology following -Pneumonia suspect gram-negative organism IV ceftriaxone Zithromax -Moderate cognitive impairment likely Alzheimer's dementia -Essential hypertension Amlodipine 10 mg a day Zestril 10 mg a day -Chronic insomnia for medical conditions Melatonin 5 mg nightly -Depression Zoloft 100 mg a day -Right lower extremity traumatic superficial wound secondary to fall Topical bacitracin cream -Full code
--- NOTE | 2024-04-24 10:09 | CA ---
Transthoracic Echo Report Name: Geoffrey Luque Age: 73 Gender: M : 1950 Exam Date: 04/23/2024 08:53 Exam Location: [facility] Ht (in): 75 Wt (lb): 305 Ordering Physician: Jose Bernstein MD Attending/Referring Phys: Butcher Meat Saira Bah RDCS Procedure CPT: Indications: Cardiomegaly Cardiac Hx: Technical Quality: Fair Contrast 1: Total Dose (mL): Contrast 2: Total Dose (mL): MEASUREMENTS (Male / Female) Normal Values 2D ECHO LV Diastolic Diameter PLAX 5.5 cm 4.2 - 5.9 / 3.9 - 5.3 cm LV Systolic Diameter PLAX 3.9 cm IVS Diastolic Thickness 1.1 cm 0.6 - 1.0 / 0.6 - 0.9 cm LVPW Diastolic Thickness 1.0 cm 0.6 - 1.0 / 0.6 - 0.9 cm LV Relative Wall Thickness 0.4 LVOT Diameter 2.6 cm Ascending Aorta Diameter 3.8 cm DOPPLER AV Peak Velocity 151.8 cm/s AV Peak Gradient 9.2 mmHg AV Mean Velocity 105.7 cm/s AV Mean Gradient 5.0 mmHg AV Velocity Time Integral 26.1 cm LVOT Peak Velocity 112.4 cm/s LVOT Peak Gradient 5.1 mmHg LVOT Velocity Time Integral 19.1 cm LVOT Stroke Volume 101.8 cm??? LVOT Stroke Volume Index 38.8 ml/m??? LVOT Cardiac Index 2882.7 cm???/min???m??? AV Area Cont Eq vti 3.9 cm??? AV Area Cont Eq pk 3.9 cm??? TR Peak Velocity 237.0 cm/s TR Peak Gradient 22.5 mmHg Right Atrial Pressure 5.0 mmHg Pulmonary Artery Systolic Pressu 27.5 mmHg Right Ventricular Systolic Press 27.5 mmHg PV Peak Velocity 81.4 cm/s PV Peak Gradient 2.6 mmHg FINDINGS Left Ventricle Left ventricular ejection fraction is estimated at 55-60 %. Mildly increased septal wall thickness. Left ventricular cavity size normal. No obvious regional wall motion abnormalities. Right Ventricle Right ventricular systolic pressure within normal limits. Right ventricle not well visualized. Right Atrium Right atrial dilatation by visual estimate. Left Atrium Left atrial dilatation by visual estimate. Mitral Valve Structurally normal mitral valve. No evidence for mitral valve prolapse. No mitral stenosis. Trace mitral regurgitation. Aortic Valve Trileaflet aortic valve. No aortic stenosis. No aortic regurgitation. Tricuspid Valve Structurally normal tricuspid valve. No tricuspid stenosis. Trace tricuspid regurgitation. Pulmonic Valve Pulmonic valve not well visualized. No pulmonic stenosis. No pulmonic regurgitation. Pericardium Trace pericardial effusion.echo free space anterior to the right ventricle likely represents a fat pad. Aorta Normal size aortic root and proximal ascending aorta. CONCLUSIONS Diagnosis congestive heart failure, hyponatremia LVH with preserved systolic function Normal RV size and function Biatrial enlargement Small pericardial effusion thickened pericardium, no hemodynamic consequence Previewed by: Dr Waqas Bains (Electronically Signed) Final Date: 24 April 2024 10:08
--- NOTE | 2024-04-24 11:24 | P.PN ---
Subjective patient is seen for follow-up for hyponatremia. He is currently awake and comfortable with no acute distress. Patient was noted to have significant urine retention yesterday with 500 mL of urine noted on bladder scan. He currently has an external catheter and 3.2 L of urine noted in 24 hours. serum sodium is pending from today. Sodium did not improve further with saline after leveling off at 125. Maintained on saline at 75 mL an hour Objective - Vital Signs Vital signs: Vital Signs Temp 97.8 F 04/24/24 09:13 Pulse 86 04/24/24 09:13 Resp 16 04/24/24 09:13 BP 99/66 04/24/24 09:13 Pulse Ox 94 L 04/24/24 09:13 FiO2 Intake & Output 04/23/24 04/24/24 04/24/24 18:59 06:59 18:59 Intake Total 1080 960 Output Total 1800 1750 250 Balance -720 -790 -250 Weight 136.9 kg Intake: Intake, IV Titration 600 Amount Sodium Chloride 0.9% 1, 600 000 ml @ 75 mls/hr IV . [id number] [facility] Rx#:[id number] Oral 480 960 Output: Urine 1800 1750 250 Other: Voiding Method External Catheter External Catheter External Catheter - Exam Patient is awake, comfortable, no acute distress. 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 Patient is moving all 4 extremities. patient does not have left upper extremity - Labs CBC & Chem 7: 04/22/24 07:07 04/23/24 23:00 Labs: Abnormal Lab Results - Last 24 Hours (Table) 04/23/24 04/23/24 Range/Units 18:16 23:00 Sodium 125 L 125 L (137-145) mmol/L Assessment and Plan Assessment: 1. Hyponatremia, hypovolemic initially with improvement with normal saline. sodium now staying around 125-126. Normal saline discontinued today. Patient also has significant urine retention. 2. Hypertension, blood pressure is controlled. 3. Possible pneumonia. 4. Urine retention, currently with external catheter. Bladder scan will be repeated and we will place Powell catheter if there continues to be significant retention. Plan: discontinue normal saline. add sodium chloride tabs Encourage increased oral intake continue with external catheter as bladder scan showed only about 200 mL yesterday. Repeat sodium
[2024-04-24] MEDS: SODIUM CHLORIDE TAB 1 GM TAB PO SCH (11:49)
--- NOTE | 2024-04-24 15:57 | P.PN ---
Subjective Progress Note Date: 04/24/24 73-year-old patient, [facility] with a low sodium. 114. Patient not a good historian. History is somewhat scattered. Patient has slight shortness of breath. Appetite is good. No change in bowel pattern. He is forgetful. He has some wound on the right leg he states is from a fall recently. He had been on doxycycline for pneumonia treatment. Really cannot give much other history. Somewhat tired April 22: Admitted with severe hyponatremia. Hypoosmolar. Pneumonia. Fluid restriction. IV antibiotics. Saline at 75 cc an hour. Eating fair 04/24/2024 Patient is seen and evaluated resting comfortably in bed; no specific complaints reported Vital signs are stable with temperature of 97.8, pulse 86, respirations 16 and blood pressure of 99/66 Sodium level remains steady at 125; serum and urine osmolality is low at 287 -Patient is being followed by nephrology, recommending to discontinue IV fluids and patient will be placed on salt tablets; will monitor renal function electrolytes closely Continue with current IV antibiotic therapy, will monitor CBC, CRP and procalcitonin Objective - Vital Signs Vital signs: Vital Signs Temp 97.8 F 04/24/24 09:13 Pulse 86 04/24/24 09:13 Resp 16 04/24/24 09:13 BP 99/66 04/24/24 09:13 Pulse Ox 94 L 04/24/24 09:13 FiO2 Intake & Output 04/23/24 04/24/24 04/24/24 18:59 06:59 18:59 Intake Total 1080 960 Output Total 1800 1750 250 Balance -720 -790 -250 Weight 136.9 kg Intake: Intake, IV Titration 600 Amount Sodium Chloride 0.9% 1, 600 000 ml @ 75 mls/hr IV . [id number] [facility] Rx#:[id number] Oral 480 960 Output: Urine 1800 1750 250 Other: Voiding Method External Catheter External Catheter External Catheter - Exam GENERAL: Resting in bed. EYES: Pupils equal. Conjunctiva lorenzo l. HEENT: External appearance of nose and ears normal, oral cavity grossly normal. NECK: JVD not raised; masses not palpable. HEART: First and second heart sounds are normal; no edema. LUNGS: Respiratory rate increased, decreased breath sounds. ABDOMEN: Soft, nontender, liver spleen not palpable, no masses palpable. Mid abdominal area of scarring PSYCH: Patient is able to answer simple questions. He knows that he is in the hospital. Cannot tell the name. Knows the year not sure about the month. l. MUSCULOSKELETAL:No Clubbing/cyanosis;muscles-grossly intact. OA Superficial wounds on the right leg anteriorly. - Labs CBC & Chem 7: 04/22/24 07:07 04/23/24 23:00 Labs: Abnormal Lab Results - Last 24 Hours (Table) 04/23/24 04/23/24 Range/Units 18:16 23:00 Sodium 125 L 125 L (137-145) mmol/L Assessment and Plan Assessment: -Hyponatremia severe, possibly hypovolemic. Slow to respond Fluid restrict 1500 cc a day. Normal saline 75 cc an hour Follow serum urine osmolality.'s urine sodium Nephrology following -Pneumonia suspect gram-negative organism IV ceftriaxone Zithromax -Moderate cognitive impairment likely Alzheimer's dementia -Essential hypertension Amlodipine 10 mg a day Zestril 10 mg a day -Chronic insomnia for medical conditions Melatonin 5 mg nightly -Depression Zoloft 100 mg a day -Right lower extremity traumatic superficial wound secondary to fall Topical bacitracin cream -Full code
[2024-04-24 17:09] LABS: African American GFR (CKD) >90 (>60 ml/min/1.73 sqM); Anion Gap 8 mmol/L; Blood Urea Nitrogen 14 mg/dL (9-20); Calcium 8.8 mg/dL (8.4-10.2); Carbon Dioxide 23 mmol/L (22-30); Chloride 92 mmol/L (98-107); Glucose 96 mg/dL (74-99); Non-African American GFR(CKD) >90 (>60 ml/min/1.73 sqM); Sodium 123 mmol/L (137-145)
[2024-04-24 17:14] LABS: Potassium 4.6 mmol/L (3.5-5.1)
[2024-04-24] MEDS: TOLVAPTAN 15 MG TABLET PO ONE (20:05)
[2024-04-25 08:12] LABS: Basophils # (A) 0.1 k/uL (0-0.2); Basophils % (A) 1 %; Eosinophils # (A) 0.2 k/uL (0-0.7); Eosinophils % (A) 2 %; HCT 50.6 % (39.0-53.0); HGB 16.3 gm/dL (13.0-17.5); Lymphocytes # (A) 0.8 k/uL (1.0-4.8); Lymphocytes % (A) 8 %; MCH 29.4 pg (25.0-35.0); MCHC 32.2 g/dL (31.0-37.0); MCV 91.4 fL (80.0-100.0); Monocytes # (A) 0.6 k/uL (0-1.0); Monocytes % (A) 7 %; Neutrophils # (A) 7.9 k/uL (1.3-7.7); Neutrophils % (A) 82 %; Platelet Count 264 k/uL (150-450); RBC 5.53 m/uL (4.30-5.90); RDW 13.4 % (11.5-15.5); WBC 9.6 k/uL (3.8-10.6)
[2024-04-25 08:14] LABS: African American GFR (CKD) >90 (>60 ml/min/1.73 sqM); Anion Gap 7 mmol/L; Blood Urea Nitrogen 11 mg/dL (9-20); Calcium 9.1 mg/dL (8.4-10.2); Carbon Dioxide 25 mmol/L (22-30); Chloride 100 mmol/L (98-107); Glucose 97 mg/dL (74-99); Non-African American GFR(CKD) >90 (>60 ml/min/1.73 sqM); Potassium 4.8 mmol/L (3.5-5.1); Sodium 132 mmol/L (137-145)
--- NOTE | 2024-04-25 12:37 | P.PN ---
Subjective patient is seen for follow-up for hyponatremia. He is currently awake and comfortable with no acute distress. significant urine retention noted on initial admission. Currently with external catheter with bladder scan showing about 200 mL. Serum sodium improved initially with normal saline and subsequently decreased to 123 from 125. Saline was then discontinued and patient received a dose of Samsca last night. Sodium is 132 today. Patient denies any significant complaints. He is tolerating oral intake. Objective - Vital Signs Vital signs: Vital Signs Temp 98.0 F 04/25/24 11:37 Pulse 99 04/25/24 11:37 Resp 15 04/25/24 11:37 BP 151/68 04/25/24 11:37 Pulse Ox 93 L 04/25/24 11:37 FiO2 Intake & Output 04/24/24 04/25/24 04/25/24 18:59 06:59 18:59 Intake Total 120 360 120 Output Total 625 1850 450 Balance -505 -1490 -330 Weight 134.6 kg Intake: Oral 120 360 120 Output: Urine 625 1850 450 Other: Voiding Method External Catheter External Catheter # Voids 1 - Exam Patient is awake, comfortable, no acute distress. 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 Patient is moving all 4 extremities. patient does not have left upper extremity - Labs CBC & Chem 7: 04/25/24 07:03 04/25/24 07:03 Labs: Abnormal Lab Results - Last 24 Hours (Table) 04/24/24 04/25/24 04/25/24 Range/Units 16:43 07:03 07:03 Neutrophils # 7.9 H (1.3-7.7) k/uL Lymphocytes # 0.8 L (1.0-4.8) k/uL Sodium 123 L 132 L (137-145) mmol/L Chloride 92 L (98-107) mmol/L Creatinine 0.45 L 0.49 L (0.66-1.25) mg/dL Assessment and Plan Assessment: 1. Hyponatremia, hypovolemic initially with improvement with normal saline. Serum sodium improved initially with normal saline and subsequently decreased to 123 from 125. Saline was then discontinued and patient received a dose of Samsca last night. Sodium is 132 today. Patient also has significant urine retention. Currently with external catheter with good urine output and bladder scan showing about 200 mL. 2. Hypertension, blood pressure is controlled. 3. Possible pneumonia. 4. Urine retention, currently with external catheter. Plan: DC sodium chloride tabs Repeat sodium at 5 PM Encourage increased oral intake continue with external catheter as bladder scan showed only about 200 mL yesterday.
[2024-04-25 15:03] VITALS: TEMP 97.8
[2024-04-25] MEDS: METOPROLOL TARTRATE 50 MG TAB PO SCH (20:00)
[2024-04-26 03:24] VITALS: BP 129/72; PULSE 72; RESP 16
[2024-04-26] MEDS ORDERED: amLODIPine 10 MG TAB ONE (08:21)
[2024-04-26] MEDS ORDERED: guaiFENesin 600 MG TABLET.ER PO ONE ×2 (08:21→20:32)
[2024-04-26] MEDS ORDERED: lisinopriL 10 MG TAB ONE (08:21)
[2024-04-26] MEDS ORDERED: CHOLECALCIFEROL 125 MCG (5000 IU) TABLET ONE (08:21)
[2024-04-26] MEDS ORDERED: METOPROLOL TARTRATE 50 MG TAB ONE ×2 (08:21→20:32)
[2024-04-26] MEDS ORDERED: GABAPENTIN 100 MG CAP ONE ×2 (15:11→20:33)
[2024-04-26] MEDS ORDERED: SERTRALINE 100 MG TAB ONE (16:36)
[2024-04-26] MEDS ORDERED: MELATONIN 5 MG TABLET ONE (20:33)
[2024-04-26] MEDS ORDERED: APIXABAN 5 MG TAB ONE (20:33)
[2024-04-26] MEDS ORDERED: cefTRIAXone 1 GM VIAL ONE (20:43)
[2024-04-26] MEDS ORDERED: SODIUM CHLORIDE 0.9% 50 ML ONE (20:43)
[2024-04-27] MEDS ORDERED: GABAPENTIN 100 MG CAP ONE ×3 (06:19→22:23)
[2024-04-27] MEDS ORDERED: METOPROLOL TARTRATE 50 MG TAB ONE ×2 (09:44→22:22)
[2024-04-27] MEDS ORDERED: lisinopriL 10 MG TAB ONE (09:45)
[2024-04-27] MEDS ORDERED: guaiFENesin 600 MG TABLET.ER PO ONE ×2 (09:45→22:23)
[2024-04-27] MEDS ORDERED: CHOLECALCIFEROL 125 MCG (5000 IU) TABLET ONE (09:45)
[2024-04-27] MEDS ORDERED: APIXABAN 5 MG TAB ONE ×2 (13:05→22:23)
[2024-04-27] MEDS ORDERED: FUROSEMIDE 10 MG/ML 2 ML VIAL ONE ×2 (17:29)
[2024-04-27] MEDS ORDERED: SERTRALINE 100 MG TAB ONE (17:29)
[2024-04-27] MEDS ORDERED: MELATONIN 5 MG TABLET ONE (22:23)
[2024-04-27] MEDS ORDERED: cefTRIAXone 1 GM VIAL ONE (22:23)
[2024-04-27] MEDS ORDERED: SODIUM CHLORIDE 0.9% 50 ML ONE (22:23)
[2024-04-28] MEDS ORDERED: METOPROLOL TARTRATE 50 MG TAB ONE ×2 (08:23→19:56)
[2024-04-28] MEDS ORDERED: amLODIPine 10 MG TAB ONE (08:24)
[2024-04-28] MEDS ORDERED: CHOLECALCIFEROL 125 MCG (5000 IU) TABLET ONE (08:24)
[2024-04-28] MEDS ORDERED: guaiFENesin 600 MG TABLET.ER PO ONE ×2 (08:24→19:56)
[2024-04-28] MEDS ORDERED: APIXABAN 5 MG TAB ONE ×2 (08:42→19:59)
[2024-04-28] MEDS ORDERED: BACITRACIN OINT 1 EACH PACKET TOPICAL ONE ×3 (09:00→20:05)
[2024-04-28] MEDS ORDERED: DAPAGLIFLOZIN PROPANEDIOL 10 MG TABLET ONE (12:20)
[2024-04-28] MEDS ORDERED: GABAPENTIN 100 MG CAP ONE ×2 (12:26→19:57)
[2024-04-28] MEDS ORDERED: SERTRALINE 100 MG TAB ONE (17:07)
[2024-04-28] MEDS ORDERED: MELATONIN 5 MG TABLET ONE (19:56)
[2024-04-28] MEDS ORDERED: cefTRIAXone 1 GM VIAL ONE (19:57)
[2024-04-28] MEDS ORDERED: SODIUM CHLORIDE 0.9% 50 ML ONE (19:57)
[2024-04-29] MEDS ORDERED: GABAPENTIN 100 MG CAP ONE ×3 (05:26→19:42)
[2024-04-29] MEDS ORDERED: lisinopriL 10 MG TAB ONE (09:19)
[2024-04-29] MEDS ORDERED: METOPROLOL TARTRATE 50 MG TAB ONE ×2 (09:19→19:41)
[2024-04-29] MEDS ORDERED: lisinopriL 5 MG TAB ONE (09:19)
[2024-04-29] MEDS ORDERED: guaiFENesin 600 MG TABLET.ER PO ONE ×2 (09:19→19:42)
[2024-04-29] MEDS ORDERED: DAPAGLIFLOZIN PROPANEDIOL 10 MG TABLET ONE (09:20)
[2024-04-29] MEDS ORDERED: CHOLECALCIFEROL 125 MCG (5000 IU) TABLET ONE (09:20)
[2024-04-29] MEDS ORDERED: APIXABAN 5 MG TAB ONE ×2 (09:20→19:43)
[2024-04-29] MEDS ORDERED: BACITRACIN OINT 1 EACH PACKET TOPICAL ONE ×3 (09:24→21:00)
[2024-04-29] MEDS ORDERED: SERTRALINE 100 MG TAB ONE (15:26)
[2024-04-29] MEDS ORDERED: MELATONIN 5 MG TABLET ONE (19:42)
[2024-04-29] MEDS ORDERED: cefTRIAXone 1 GM VIAL ONE (19:44)
[2024-04-29] MEDS ORDERED: SODIUM CHLORIDE 0.9% 50 ML BAG IV ONE (21:00)
[2024-04-30] MEDS ORDERED: BACITRACIN OINT 1 EACH PACKET TOPICAL ONE ×3 (09:00→20:50)
[2024-04-30] MEDS ORDERED: lisinopriL 5 MG TAB ONE (09:00)
[2024-04-30] MEDS ORDERED: DAPAGLIFLOZIN PROPANEDIOL 10 MG TABLET ONE (09:00)
[2024-04-30] MEDS ORDERED: METOPROLOL TARTRATE 50 MG TAB ONE ×2 (09:08→19:45)
[2024-04-30] MEDS ORDERED: guaiFENesin 600 MG TABLET.ER PO ONE ×2 (09:08→19:45)
[2024-04-30] MEDS ORDERED: CHOLECALCIFEROL 125 MCG (5000 IU) TABLET ONE (09:08)
[2024-04-30] MEDS ORDERED: lisinopriL 10 MG TAB ONE (09:08)
[2024-04-30] MEDS ORDERED: GABAPENTIN 100 MG CAP ONE ×3 (09:09→19:46)
[2024-04-30] MEDS ORDERED: amLODIPine 10 MG TAB ONE (09:09)
[2024-04-30] MEDS ORDERED: APIXABAN 5 MG TAB ONE ×2 (09:38→19:46)
[2024-04-30] MEDS ORDERED: SERTRALINE 100 MG TAB ONE (16:49)
[2024-04-30] MEDS ORDERED: MELATONIN 5 MG TABLET ONE (19:46)
[2024-04-30] MEDS ORDERED: cefTRIAXone 1 GM VIAL ONE (19:46)
[2024-04-30] MEDS ORDERED: SODIUM CHLORIDE 0.9% 50 ML BAG IV ONE (20:50)
[2024-05-01] MEDS ORDERED: GABAPENTIN 100 MG CAP ONE ×3 (05:50→21:24)
[2024-05-01] MEDS ORDERED: guaiFENesin 600 MG TABLET.ER PO ONE ×2 (08:58→21:24)
[2024-05-01] MEDS ORDERED: METOPROLOL TARTRATE 50 MG TAB ONE (08:58)
[2024-05-01] MEDS ORDERED: CHOLECALCIFEROL 125 MCG (5000 IU) TABLET ONE (08:59)
[2024-05-01] MEDS ORDERED: DAPAGLIFLOZIN PROPANEDIOL 10 MG TABLET ONE (08:59)
[2024-05-01] MEDS ORDERED: lisinopriL 10 MG TAB ONE (08:59)
[2024-05-01] MEDS ORDERED: APIXABAN 5 MG TAB ONE ×2 (08:59→21:25)
[2024-05-01] MEDS ORDERED: BACITRACIN OINT 1 EACH PACKET TOPICAL ONE ×3 (09:00→21:28)
[2024-05-01] MEDS ORDERED: lisinopriL 5 MG TAB ONE (09:00)
[2024-05-01] MEDS ORDERED: TOLVAPTAN 15 MG TABLET ONE (12:00)
[2024-05-01] MEDS ORDERED: SERTRALINE 100 MG TAB ONE (17:21)
[2024-05-01] MEDS ORDERED: MELATONIN 5 MG TABLET ONE (21:24)
[2024-05-01] MEDS ORDERED: cefTRIAXone 1 GM VIAL ONE (21:25)
[2024-05-01] MEDS ORDERED: SODIUM CHLORIDE 0.9% 50 ML BAG IV ONE (21:28)
[2024-05-02] MEDS ORDERED: guaiFENesin 600 MG TABLET.ER PO ONE ×2 (08:43→21:35)
[2024-05-02] MEDS ORDERED: SERTRALINE 100 MG TAB ONE ×2 (08:43→16:29)
[2024-05-02] MEDS ORDERED: DAPAGLIFLOZIN PROPANEDIOL 10 MG TABLET ONE (08:43)
[2024-05-02] MEDS ORDERED: METOPROLOL TARTRATE 50 MG TAB ONE ×2 (08:43→21:35)
[2024-05-02] MEDS ORDERED: GABAPENTIN 100 MG CAP ONE ×3 (08:43→21:36)
[2024-05-02] MEDS ORDERED: CHOLECALCIFEROL 125 MCG (5000 IU) TABLET ONE (08:43)
[2024-05-02] MEDS ORDERED: lisinopriL 10 MG TAB ONE (08:43)
[2024-05-02] MEDS ORDERED: APIXABAN 5 MG TAB ONE ×2 (08:44→21:36)
[2024-05-02] MEDS ORDERED: lisinopriL 5 MG TAB ONE (09:00)
[2024-05-02] MEDS ORDERED: BACITRACIN OINT 1 EACH PACKET TOPICAL ONE ×3 (09:00→21:38)
[2024-05-02] MEDS ORDERED: cefTRIAXone 1 GM VIAL ONE (21:36)
[2024-05-02] MEDS ORDERED: MELATONIN 5 MG TABLET ONE (21:36)
[2024-05-02] MEDS ORDERED: SODIUM CHLORIDE 0.9% 50 ML BAG IV ONE (21:38)
[2024-05-03 06:26] LABS: Glucose,Whole Blood 90 mg/dL (70-110)
[2024-05-03] MEDS ORDERED: guaiFENesin 600 MG TABLET.ER PO ONE (07:55)
[2024-05-03] MEDS ORDERED: CHOLECALCIFEROL 125 MCG (5000 IU) TABLET ONE (07:55)
[2024-05-03] MEDS ORDERED: DAPAGLIFLOZIN PROPANEDIOL 10 MG TABLET ONE (07:55)
[2024-05-03] MEDS ORDERED: lisinopriL 5 MG TAB ONE (07:55)
[2024-05-03] MEDS ORDERED: METOPROLOL TARTRATE 50 MG TAB ONE (07:55)
[2024-05-03] MEDS ORDERED: SERTRALINE 100 MG TAB ONE (07:56)
[2024-05-03] MEDS ORDERED: APIXABAN 5 MG TAB ONE (07:56)
[2024-05-03] MEDS ORDERED: GABAPENTIN 100 MG CAP ONE ×2 (07:56→14:00)
[2024-05-03] MEDS ORDERED: BACITRACIN OINT 1 EACH PACKET TOPICAL ONE ×2 (09:00→16:00)
[2024-05-19 13:25] LABS: Anion Gap 12 mmol/L; Blood Urea Nitrogen 18 mg/dL (9-20); Carbon Dioxide 23 mmol/L (22-30); Chloride 94 mmol/L (98-107); Glucose 125 mg/dL (74-99); Potassium 4.9 mmol/L (3.5-5.1); Sodium 129 mmol/L (137-145)
[2024-05-19 13:26] LABS: African American GFR (CKD) >90 (>60 ml/min/1.73 sqM); Calcium 9.3 mg/dL (8.4-10.2); Magnesium 1.9 mg/dL (1.6-2.3); Non-African American GFR(CKD) >90 (>60 ml/min/1.73 sqM)
--- NOTE | 2024-06-14 11:16 | PN ---
PROGRESS NOTE SUBJECTIVE: The patient is seen in followup for hyponatremia. Sodium level was 130 as of yesterday. He did receive a dose of Samsca yesterday. He is also on SGLT2 inhibitor. Oral intake remains poor. OBJECTIVE: VITAL SIGNS: Temperature 97.5 degrees Fahrenheit, pulse 70, respirations 16, blood pressure 111/68, and oxygen saturation 94% on room air. HEENT: Normocephalic, atraumatic. HEART: Regular rate and rhythm. CHEST: Clear to auscultation. ABDOMEN: Soft, nontender. EXTREMITIES: No edema. Chronic changes noted. ASSESSMENT: 1. Hyponatremia secondary to poor solid intake. Slightly hypervolemic, sodium level of 130 yesterday. TSH normal. 2. Systolic CHF. Ejection fraction 40% to 45%. 3. Benign hypertension. Controlled. 4. AFib. Rate controlled. 5. Mild hyperkalemia secondary to LISA inhibitor use. Now on renal diet. PLAN: 1. Status post 7.5 mg Samsca given on May 01, 2024. 2. Maintain 1.5 L fluid restriction per day. 3. Renal diet. 4. A.m. labs pending. 5. Potential discharge to rehab tomorrow. 6. Encouraged increased protein intake. 7. A repeat BMP and magnesium level 2 to 3 days post discharge. MMODL / IJN: [id number] /
== END 2024-05-03 18:24 | DRG 643 ==
LOC: EC 15:23 → 3SCARD 17:48
PROVIDERS: ADMIT Hospitalist; ATTEND Hospitalist
DX: E22.2 Syndrome of inappropriate secretion of antidiuretic hormone (principal); I50.23 Acute on chronic systolic (congestive) heart failure; J15.69 Pneumonia due to other Gram-negative bacteria; N39.0 Urinary tract infection, site not specified; I48.91 Unspecified atrial fibrillation; I95.9 Hypotension, unspecified; G30.9 Alzheimer's disease, unspecified; F02.80 Dementia in other diseases classified elsewhere, unspecified severity, without behavioral disturbance, psychotic disturbance, mood disturbance, and anxiety; F51.04 Psychophysiologic insomnia; I25.5 Ischemic cardiomyopathy; R53.81 Other malaise; I11.0 Hypertensive heart disease with heart failure; F32.A Depression, unspecified; R33.9 Retention of urine, unspecified; E86.1 Hypovolemia; E87.5 Hyperkalemia; T46.4X5A Adverse effect of angiotensin-converting-enzyme inhibitors, initial encounter; W19.XXXA Unspecified fall, initial encounter; Z89.202 Acquired absence of left upper limb, unspecified level; Z87.891 Personal history of nicotine dependence; Z79.899 Other long term (current) drug therapy; Z92.21 Personal history of antineoplastic chemotherapy
CPT/HCPCS: 36415; 51798; 71046; 80048; 80053; 81003; 83605; 83735; 83930; 83935; 84145; 84295; 84300; 84443; 85025; 85027; 85610; 85730; 93005; 93306; 96361; 96365; 99285

== ENCOUNTER → 2024-05-14 | Outpatient (CLI) | payer MEDICARE | END | disposition home or self-care (01) | LOC: LABPRL 12:00 | PROVIDERS: ATTEND Family Medicine | CPT/HCPCS: 87077; 87086; 87186 ==